=== PATIENT | male | born 1930 | race Caucasian/White ===

== ENCOUNTER 2016-10-08 23:38 | Emergency (ER) | payer MEDICARE, OTHER ==
[~2016-10-08] VITALS: Ht 157.5 cm; Wt 82.0 kg
[~2016-10-08 23:38] MED LIST: ALBU0.63 NEB; ALBU6.7H INH; ALPR0.25 PO; ASPI81TA81; ATOR40TA16 PO; BUME2TAB PO; CEFU1TAB20 PO; HYDR-3583 PO; MAGNSOL2 PO; MIRA33504 PO; NITR0.4S SL; POTA-163 PO; PRED1 PO; RANI150C PO; SYMB80AE INH
[2016-10-08 23:43] VITALS: BP 142/59; PULSE 68; RESP 16; TEMP 97.7; O2SAT 97
[2016-10-08] MEDS ORDERED: TEMA15CA PO (23:54)
[2016-10-08] MEDS ORDERED: ALBU6.7H INH (23:54)
[2016-10-08] MEDS ORDERED: MUCI30TA2 PO (23:54)
[2016-10-08] MEDS ORDERED: BUME2TAB PO (23:54)
[2016-10-08] MEDS ORDERED: ATEN25TA PO (23:54)
--- NOTE | 2016-10-09 00:14 | PD ---
HPI Chief Complaint: Fall Time Seen by Provider: 00:09 Travel History International Travel<30 days: No Contact w/Intl Traveler<30days: No Traveled to known affect area: No History of Present Illness HPI The patient is an 85-year-old male that fell asleep on a motorized wheelchair and fell out of it. He apparently hit the lever any sleep and it dumped him out of the chair onto a table. He hit the left side of his head, has bruised lips, abrasions of both knees and complains of low back pain and bilateral hip pain. The patient always has hip and low back pain and this exacerbated this. There is no loss of consciousness. The patient is on aspirin and no other blood thinners. 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) Endocrine: No Gastrointestinal Disorders: Yes GERD: Yes Genitourinary: Yes Headaches: No Hepatitis: No Hiatal Hernia: Yes (AND UMBILICAL) Hypertension: Yes Immune Disorder: No Implanted Vascular Access Dvce: Yes Kidney Stones: Yes (X2, REMOVED) Musculoskeletal: Yes Neurologic: Yes (SPINAL STENOSIS) Psychiatric: No Reproductive: No Respiratory: Yes Immunizations Current: Yes Migraines: No Myocardial Infarction: Yes (02/2010) Radiation Therapy: Yes (SEED IMPLANTS PROSTATE) Renal Failure: No Seizures: No Sleep Apnea: No Thyroid Disease: No Ulcer: No Tetanus Vaccination: < 5 Years Influenza Vaccination: Yes Past Surgical History Appendectomy: No Body Medical Devices: CORONARY STENTS X5 Cholecystectomy: No Coronary Stent: Yes (3 OVER 12 YEARS; 2 MORE PLACED 02/2010 FOR A TOTAL OF 5 STENTS) Eye Surgery: Yes (CATARACTS) Genitourinary Surgery: Yes (TESTICULAR TORSION 1950, KIDNEY STONE REMOVAL) Gynecologic Surgery: No Prostatectomy: Yes (CA SEEDING ) Tonsillectomy: Yes Other Surgery: Yes Social History Alcohol Use: Yes (BEER, RARE) Tobacco Use: No (CIGARETTES QUIT IN 1984- SMOKED FOR APPROX 45+YRS) Substance Use: No Allergies-Medications (Allergen,Severity, Reaction): Coded Allergies: Cipro (Verified Allergy, Severe, HIVES, 10/08/16) Levaquin (Verified Allergy, Severe, ITCHING, 10/08/16) Morphine (Verified Allergy, Severe, PT DENIES, 10/08/16) PT STATES HE IS NOT ALLERGIC Sulfa (Verified Allergy, Severe, Rash, 10/08/16) Flu Vaccine (Unverified Allergy, Intermediate, Hives, 10/08/16) Reported Meds & Prescriptions Reported Meds & Active Scripts Active Reported Proventil Hfa 6.7 GM Inh (Albuterol Sulfate) 90 Mcg/Act Aer 1 Puff INH Q4H PRN Mucinex DM (Dextromethorphan-Guaifenesin) 30-600 Mg Tab 1 Tab PO BID PRN Temazepam 15 Mg Cap 15 Mg PO HS PRN Bumetanide 2 Mg Tab 2 Mg PO DAILY Atenolol 25 Mg Tab 12.5 Mg PO DAILY Potassium Chloride ER (Potassium Chloride) 20 Meq Tab 20 Meq PO DAILY Proventil Hfa 6.7 GM Inh (Albuterol Sulfate) 90 Mcg/Act Aer 2 Puff INH Q4-6H PRN Prednisone 1 Mg Tab 2 Mg PO DAILY Albuterol Neb (Albuterol Sulfate) 0.63 Mg/3 Ml Neb 0.63 Mg NEB Q4HR NEB PRN Nitrostat SL (Nitroglycerin) 0.4 Mg Subl 0.4 Mg SL DIRECTED PRN 1 tablet under the tongue as needed for chest pain. Repeat every 5 minutes for a total of 3 DOSES or call 911 if NO relief. Alprazolam 0.25 Mg Tab 0.25 Mg PO Q4H PRN Hydrocodone-Acetaminophen 10-325 mg Tab 1 Tab PO Q6H PRN Symbicort Inh (Budesonide/Formoterol Fumarate) 80-4.5 Mcg/Act Aero 2 Puff INH Q12HR Ranitidine (Ranitidine HCl) 150 Mg Cap 150 Mg PO DAILY Atorvastatin (Atorvastatin Calcium) 40 Mg Tab 40 Mg PO HS Aspir-81 (Aspirin) 81 Mg Tabdr Review of Systems Except as stated in HPI: all other systems reviewed are Neg Physical Exam Narrative GENERAL: The patient is alert, oriented 3 and slight apparent distress with his multiple abrasions and contusions. His vital signs are normal. SKIN: Focused skin assessment warm/dry. There are bilateral knee abrasions, abrasion/contusion on the left face and abrasion on the left arm. HEAD: Neither raccoon eyes or ashley sign is present. Normocephalic. EYES: Pupils equal and round. No scleral icterus. No injection or drainage. ENT: No nasal bleeding or discharge. Mucous membranes pink and moist. There is no hemotympanum present. NECK: Trachea midline. No JVD. Minimal tenderness is present in the mid cervical spine, the patient has arthritis and often has pain in this area. CARDIOVASCULAR: Regular rate and rhythm. No murmur appreciated. RESPIRATORY: No accessory muscle use. Clear to auscultation. Breath sounds equal bilaterally. GASTROINTESTINAL: Abdomen soft, non-tender, nondistended. Hepatic and splenic margins not palpable. MUSCULOSKELETAL: No obvious deformities. No clubbing. No cyanosis. No edema. The patient has tenderness on the lumbar sacral spine without deformity. He also has bilateral hip tenderness without deformity. NEUROLOGICAL: Awake and alert. No obvious cranial nerve deficits. Motor grossly within normal limits. Normal speech. PSYCHIATRIC: Appropriate mood and affect; insight and judgment normal. Data Data Last Documented VS Vital Signs Date Time Temp Pulse Resp B/P Pulse Ox O2 Delivery O2 Flow Rate FiO2 10/09/16 01:30 18 10/09/16 01:05 69 141/60 97 Nasal Cannula 2 10/08/16 23:43 97.7 Orders Knee, Complete (4vws) (10/09/16 00:15) Knee, Complete (4vws) (10/09/16 00:15) Spine, Lumbar - Ltd (Ap & Lat) (10/09/16 00:15) Pelvis, Ap Only (Routine) (10/09/16 00:15) Ct Brain W/O Iv Contrast(Rout) (10/09/16 00:15) Ct Cerv Spine W/O Contrast (10/09/16 00:15) Wound Care (10/09/16 00:18) Tetanus/Diphtheria Tox Adult (Tetanus/Di (10/09/16 00:30) Ketorolac Inj (Toradol Inj) (10/09/16 00:30) MDM Medical Decision Making Medical Screen Exam Complete: Yes Emergency Medical Condition: Yes Medical Record Reviewed: Yes Interpretation(s) The AP pelvis is unremarkable. Incidentally noted is prosthetic seed placement. The lumbar spine shows only marked degenerative change at multiple levels but no fracture. The left knee is unremarkable. The right knee is unremarkable. The CT brain shows diffuse atrophy and an air-fluid level in the right maxillary sinus is unchanged since [address] of the cervical spine shows chronic degenerative change without evidence of fracture. Essentially no change since January 2016. Differential Diagnosis Multiple contusions/abrasions, intracranial bleed, skull fracture, hip fracture , pelvic fracture Narrative Course The patient has no acute findings on all of the imaging. He wants something for the pain but I am concerned that anything too strong will probably make him fall again. Plan: He will be given tramadol 50 mg every 6 hours. Diagnosis Primary Impression: Multiple contusions Med/Other Pt SpecificInfo: Prescription(s) given Scripts Tramadol 50 Mg Tab50 Mg PO Q6H PRN (PAIN) #30 TAB Ref 0 Prov:Sander Day MD 10/09/16 Disposition: 01 DISCHARGE HOME Condition: Stable Sander Day MD October 09, 2016 00:14
[2016-10-09] MEDS ORDERED: TETANUS/DIPHTHERIA TOXOID ADULT 0.5 ML VIAL IM ONE (00:30)
[2016-10-09] MEDS ORDERED: KETOROLAC TROMETHAMINE 60 MG/2 ML (IM) VIAL IVP ONE (00:30)
--- NOTE | 2016-10-09 01:00 | RADHPO ---
EXAM DATE/TIME: 10/09/2016 00:46 [facility] COMPARISON: No previous studies available for comparison. INDICATIONS : Trauma, fall. MEDICAL HISTORY : Hypertension. Carcinoma, prostatic. SURGICAL HISTORY : Prostate seeds. ENCOUNTER: Initial ACUITY: 1 day PAIN SCORE: 6/10 LOCATION: pelvis FINDINGS: A single frontal view of the pelvis demonstrates no evidence of fracture. The bony pelvic ring is in tact. Bony mineralization is normal. The soft tissues are intact. CONCLUSION: Unremarkable examination of the pelvis. Prostatic seed placement. Ervin Bland MD on October 09, 2016 at 0:58 Board Certified Radiologist. This report was verified electronically.
--- NOTE | 2016-10-09 01:01 | RADHPO ---
EXAM DATE/TIME: 10/09/2016 00:48 [facility] COMPARISON: No previous studies available for comparison. INDICATIONS : Trauma, fall. MEDICAL HISTORY : Hypertension. Carcinoma, prostatic. Spinal stenosis SURGICAL HISTORY : None. ENCOUNTER: Initial ACUITY: 1 day PAIN SCORE: 7/10 LOCATION: Paraspinal FINDINGS: Two view examination was performed. There are five non-rib bearing vertebral bodies. The vertebral bodies are in normal alignment without evidence of subluxation or scoliosis. There is marked degenera tive disease at multiple levels including marked discogenic sclerosis and narrowing. The pedicles ar e intact. Bony mineralization is normal. No fracture is identified. CONCLUSION: There is marked degenerative disease at multiple levels including marked discogenic sclerosis and pablo rowing. No fracture was seen Ervin Bland MD on October 09, 2016 at 0:59 Board Certified Radiologist. This report was verified electronically.
[2016-10-09 01:05] VITALS: BP 141/60; PULSE 69; RESP 18; O2SAT 97
--- NOTE | 2016-10-09 01:05 | RADHPO ---
EXAM DATE/TIME: 10/09/2016 00:53 [facility] COMPARISON: No previous studies available for comparison. INDICATIONS : Trauma, fall. MEDICAL HISTORY : Hypertension. Carcinoma, prostatic. SURGICAL HISTORY : None. ENCOUNTER: Initial ACUITY: 1 day PAIN SCORE: 6/10 LOCATION: Left knee FINDINGS: Four view examination of the left knee demonstrates no evidence of fracture or dislocation. Bony min eralization is normal. The articular surfaces are intact. The suprapatellar soft tissues have a nor mal configuration. CONCLUSION: Unremarkable examination of the left knee. Ervin Bland MD on October 09, 2016 at 1:03 Board Certified Radiologist. This report was verified electronically.
--- NOTE | 2016-10-09 01:06 | RADHPO ---
EXAM DATE/TIME: 10/09/2016 00:57 [facility] COMPARISON: No previous studies available for comparison. INDICATIONS : Trauma, fall. MEDICAL HISTORY : Hypertension. Carcinoma, prostatic. SURGICAL HISTORY : None. ENCOUNTER: Initial ACUITY: 1 day PAIN SCORE: 5/10 LOCATION: Right knee FINDINGS: Four view examination of the right knee demonstrates no evidence of fracture or dislocation. Bony mi neralization is normal. The articular surfaces are intact. The suprapatellar soft tissues have a no rmal configuration. CONCLUSION: Unremarkable examination of the right knee. Ervin Bland MD on October 09, 2016 at 1:04 Board Certified Radiologist. This report was verified electronically.
--- NOTE | 2016-10-09 01:17 | RADHPO ---
EXAM DATE/TIME: 10/09/2016 01:00 [facility] COMPARISON: No previous studies available for comparison. INDICATIONS : Trauma, fall. RADIATION DOSE: 67.91 CTDIvol (mGy) MEDICAL HISTORY : Cerebrovascular disease. Hypertension. SURGICAL HISTORY : None. ENCOUNTER: Initial ACUITY: 1 day PAIN SCALE: 5/10 LOCATION: cranial TECHNIQUE: Multiple contiguous axial images were obtained of the head. Using automated exposure control and adj ustment of the mA and/or kV according to patient size, radiation dose was kept as low as reasonably a chievable to obtain optimal diagnostic quality images. FINDINGS: There is marked central and cortical atrophy with dilatation of ventricular and sulcal spaces. There is no parenchymal hemorrhage, acute infarction or mass lesion identified. There are no extra-axial fluid collections appreciated. The posterior fossa is unremarkable with midline fourth ventricle. T he portion of the orbits visualized are unremarkable. Air fluid level right maxillary sinus are very similar to January 2016 CONCLUSION: Diffuse atrophy present in the intracranial portion of the exam. An air-fluid level right maxillary s inus unchanged since January 2016. Ervin Bland MD on October 09, 2016 at 1:15 Board Certified Radiologist. This report was verified electronically.
--- NOTE | 2016-10-09 01:26 | RADHPO ---
EXAM DATE/TIME: 10/09/2016 01:00 [facility] COMPARISON: CT CERVICAL SPINE W/O CONTRAST, January 20, 2016, 7:59. INDICATIONS : Trauma, fall. RADIATION DOSE: 26.45 CTDIvol (mGy) MEDICAL HISTORY : Hypertension. SURGICAL HISTORY : None. ENCOUNTER: Initial ACUITY: 1 day PAIN SCALE: 5/10 LOCATION: neck TECHNIQUE: Volumetric scanning of the cervical spine was performed. Multiplanar reconstructions in the sagittal, coronal and oblique axial planes were performed. Using automated exposure control and adjustment o f the mA and/or kV according to patient size, radiation dose was kept as low as reasonably achievable to obtain optimal diagnostic quality images. FINDINGS: VERTEBRAE: Normal vertebral body height. Chronic degenerative disc space narrowing at nearly every level similar to 2016. No endplate fractures identified. Moderate degenerative facet disease at multiple levels. S ome sclerosis and hypertrophy of the transverse ligament with a mild foramen magnum stenosis. ALIGNMENT: No evidence of subluxation. C2-C3: The bony spinal canal is normal in size. No evidence of disc bulge or herniation. The neural forami na are bilaterally patent. C3-C4: The bony spinal canal is normal in size. No evidence of disc bulge or herniation. The neural forami na are bilaterally patent. C4-C5: The bony spinal canal is normal in size. No evidence of disc bulge or herniation. The neural forami na are bilaterally patent. C5-C6: The bony spinal canal is normal in size. No evidence of disc bulge or herniation. The neural forami na are bilaterally patent. C6-C7: The bony spinal canal is normal in size. No evidence of disc bulge or herniation. The neural forami na are bilaterally patent. C7-T1: The bony spinal canal is normal in size. No evidence of disc bulge or herniation. The neural forami na are bilaterally patent. CONCLUSION: Chronic degenerative disease at multiple levels without evidence of endplate fracture. Accentuated lo rdosis of the cervical spine. Very similar to January 2016. Ervin Bland MD on October 09, 2016 at 1:23 Board Certified Radiologist. This report was verified electronically.
[2016-10-09 02:02] VITALS: BP 145/68; PULSE 71; RESP 18; O2SAT 96
[2016-10-09] MEDS ORDERED: TRAM50TA PO (02:05)
[2016-10-09] MEDS ORDERED: traMADol HCL 50 MG TAB PO ONE (02:15)
== END 2016-10-09 02:32 | disposition home or self-care (01) ==
LOC: PHED 23:38
DX: S00.83XA Contusion of other part of head, initial encounter (principal); S20.229A Contusion of unspecified back wall of thorax, initial encounter; S70.02XA Contusion of left hip, initial encounter; S70.01XA Contusion of right hip, initial encounter; I50.9 Heart failure, unspecified; J44.9 Chronic obstructive pulmonary disease, unspecified; I10 Essential (primary) hypertension; V00.811A Fall from moving wheelchair (powered), initial encounter; Z23 Encounter for immunization
CPT/HCPCS: 70450; 72100; 72125; 72170; 73564; 90471; 90714; 96374; 99284; J1885

== ENCOUNTER 2016-12-18 21:31 | Observation (INO) | payer MEDICARE, OTHER ==
[~2016-12-18] VITALS: Ht 157.5 cm; Wt 83.2 kg
[~2016-12-18 21:31] MED LIST changes: +ATEN25TA PO; -CEFU1TAB20 PO; -MAGNSOL2 PO; -MIRA33504 PO; +MUCI30TA2 PO; +TEMA15CA PO; +TRAM50TA PO
[2016-12-18 21:42] VITALS: BP 137/80; PULSE 69; RESP 26; TEMP 98.1; O2SAT 96
[2016-12-18] MEDS ORDERED: methylPREDNISolone SOD SUCC 125 MG/2 ML VIAL IVP ONE ×2 (22:15→23:15)
[2016-12-18] MEDS ORDERED: aMILoride HCL 5 MG TAB PO ONE (22:15)
[2016-12-18] MEDS ORDERED: RESP: ALBUTEROL 2.5 MG/3 ML NEB (SCH) INH ONE (22:15)
[2016-12-18] MEDS ORDERED: SODIUM CHLORIDE 0.9% FLUSH 10 ML FLUSH IVF PRN (22:15)
--- NOTE | 2016-12-18 22:34 | RADRPT ---
EXAM DATE/TIME: 12/18/2016 22:13 [facility] COMPARISON: CHEST SINGLE AP, April 21, 2016, 14:07. INDICATIONS : Short of breath, wheezing MEDICAL HISTORY : Carcinoma, prostate. Chronic obstructive pulmonary disease. Gastroesophageal reflux SURGICAL HISTORY : Cardic stents ENCOUNTER: Initial ACUITY: 3 days PAIN SCORE: 0/10 LOCATION: chest FINDINGS: Cardiomegaly and fullness of the right hilar region and large hiatus hernia in the retrocardiac regio n all have similar appearance to prior examination in April 2016. No focal areas of consolidation . Both hemidiaphragms well delineated. CONCLUSION: No focal infiltrates seen. Stable cardiomegaly and hiatus hernia.. Chris Salas MD on December 18, 2016 at 22:31 Board Certified Radiologist. This report was verified electronically.
[2016-12-18 23:04] LABS: BASOPHIL % 0.3 % (0.0-2.0); EOSINOPHIL # 0.5 TH/MM3 (0-0.4); HEMO FLAGS DIFF FINAL; LYMPH % 13.7 % (9.0-44.0); MEAN CELL VOLUME 96.6 FL (80.0-100.0); MEAN CORPUSCULAR HEMOGLOBIN 31.1 PG (27.0-34.0); MEAN CORPUSCULAR HGB CONC 32.2 % (32.0-36.0); MONO % 12.5 % (0.0-8.0); NEUT % 66.5 % (16.0-70.0); PLATELET COUNT 245 TH/MM3 (150-450); RED BLOOD COUNT 4.66 MIL/MM3 (4.50-5.90); RED CELL DISTRIBUTION WIDTH 14.8 % (11.6-17.2); WHITE BLOOD COUNT 7.5 TH/MM3 (4.0-11.0)
--- NOTE | 2016-12-18 23:15 | PD ---
HPI Chief Complaint: Edema Time Seen by Provider: 22:15 Travel History International Travel<30 days: No Contact w/Intl Traveler<30days: No Traveled to known affect area: No History of Present Illness HPI 86-year-old male arrives complaining of swelling in the bilateral lower extremities progressing beyond the knees. He complains of shortness of breath at rest as well as with exertion. Orthopnea is reported. He reports a history of CHF and COPD. Recently he was started on amiloride which was previously Bumex which was previously furosemide as he reportedly has a sulfa intolerance. He reports compliance with the dietary guidelines for CHF. No fever. He describes a generalized chest heaviness that accompanies the dyspnea. 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) Endocrine: No Gastrointestinal Disorders: Yes GERD: Yes Genitourinary: Yes Headaches: No Hepatitis: No Hiatal Hernia: Yes (AND UMBILICAL) Hypertension: Yes Immune Disorder: No Implanted Vascular Access Dvce: Yes Kidney Stones: Yes (X2, REMOVED) Musculoskeletal: Yes Neurologic: Yes (SPINAL STENOSIS) Psychiatric: No Reproductive: No Respiratory: Yes Immunizations Current: Yes Migraines: No Myocardial Infarction: Yes (02/2010) Radiation Therapy: Yes (SEED IMPLANTS PROSTATE) Renal Failure: No Seizures: No Sleep Apnea: No Thyroid Disease: No Ulcer: No Past Surgical History Appendectomy: No Body Medical Devices: CORONARY STENTS X5 Cholecystectomy: No Coronary Stent: Yes (3 OVER 12 YEARS; 2 MORE PLACED 02/2010 FOR A TOTAL OF 5 STENTS) Eye Surgery: Yes (CATARACTS) Genitourinary Surgery: Yes (TESTICULAR TORSION 1950, KIDNEY STONE REMOVAL) Gynecologic Surgery: No Prostatectomy: Yes (CA SEEDING ) Tonsillectomy: Yes Other Surgery: Yes Social History Alcohol Use: Yes (BEER, RARE) Tobacco Use: No (CIGARETTES QUIT IN 1984- SMOKED FOR APPROX 45+YRS) Substance Use: No Allergies-Medications (Allergen,Severity, Reaction): Coded Allergies: Cipro (Verified Allergy, Severe, HIVES, 12/18/16) Levaquin (Verified Allergy, Severe, ITCHING, 12/18/16) Morphine (Verified Allergy, Severe, PT DENIES, 12/18/16) PT STATES HE IS NOT ALLERGIC Sulfa (Verified Allergy, Severe, Rash, 12/18/16) Flu Vaccine (Unverified Allergy, Intermediate, Hives, 12/18/16) Reported Meds & Prescriptions Reported Meds & Active Scripts Active Reported Proventil Hfa 6.7 GM Inh (Albuterol Sulfate) 90 Mcg/Act Aer 1 Puff INH Q4H PRN Mucinex DM (Dextromethorphan-Guaifenesin) 30-600 Mg Tab 1 Tab PO BID PRN Temazepam 15 Mg Cap 15 Mg PO HS PRN Bumetanide 2 Mg Tab 2 Mg PO DAILY Atenolol 25 Mg Tab 12.5 Mg PO DAILY Potassium Chloride ER (Potassium Chloride) 20 Meq Tab 20 Meq PO DAILY Proventil Hfa 6.7 GM Inh (Albuterol Sulfate) 90 Mcg/Act Aer 2 Puff INH Q4-6H PRN Prednisone 1 Mg Tab 2 Mg PO DAILY Albuterol Neb (Albuterol Sulfate) 0.63 Mg/3 Ml Neb 0.63 Mg NEB Q4HR NEB PRN Nitrostat SL (Nitroglycerin) 0.4 Mg Subl 0.4 Mg SL DIRECTED PRN 1 tablet under the tongue as needed for chest pain. Repeat every 5 minutes for a total of 3 DOSES or call 911 if NO relief. Alprazolam 0.25 Mg Tab 0.25 Mg PO Q4H PRN Hydrocodone-Acetaminophen 10-325 mg Tab 1 Tab PO Q6H PRN Symbicort Inh (Budesonide/Formoterol Fumarate) 80-4.5 Mcg/Act Aero 2 Puff INH Q12HR Ranitidine (Ranitidine HCl) 150 Mg Cap 150 Mg PO DAILY Atorvastatin (Atorvastatin Calcium) 40 Mg Tab 40 Mg PO HS Aspir-81 (Aspirin) 81 Mg Tabdr Review of Systems Except as stated in HPI: all other systems reviewed are Neg Physical Exam Narrative GENERAL: 86-year-old male pleasant and speaking sentences SKIN: Focused skin assessment warm/dry. HEAD: Atraumatic. Normocephalic. EYES: Pupils equal and round. No scleral icterus. No injection or drainage. ENT: No nasal bleeding or discharge. Mucous membranes pink and moist. NECK: Trachea midline. No JVD. CARDIOVASCULAR: Regular rate and rhythm. No murmur appreciated. RESPIRATORY: No accessory muscle use. Clear to auscultation. Breath sounds equal bilaterally. GASTROINTESTINAL: Abdomen soft, non-tender, nondistended. Hepatic and splenic margins not palpable. MUSCULOSKELETAL: No obvious deformities. No clubbing. No cyanosis. 2+ pitting edema to the knees bilaterally. Various dressings about the lower extremities. There is a 1 cm x 2 cm ovular shaped blister overlying the left tibia distribution. NEUROLOGICAL: Awake and alert. No obvious cranial nerve deficits. Motor grossly within normal limits. Normal speech. PSYCHIATRIC: Appropriate mood and affect; insight and judgment normal. Data Data Last Documented VS Vital Signs Date Time Temp Pulse Resp B/P Pulse Ox O2 Delivery O2 Flow Rate FiO2 12/19/16 00:02 97 30 12/18/16 22:01 Nasal Cannula 2 12/18/16 21:42 98.1 69 26 137/80 Orders Complete Blood Count With Diff (12/18/16 22:15) Comprehensive Metabolic Panel (12/18/16 22:15) B-Type Natriuretic Peptide (12/18/16 22:15) Troponin I (12/18/16 22:15) Iv Access Insert/Monitor (12/18/16 22:15) Electrocardiogram (12/18/16 22:15) Ecg Monitoring (12/18/16 22:15) Oximetry (12/18/16 22:15) Oxygen Administration (12/18/16 22:15) Chest, Single Ap (12/18/16 22:15) Sodium Chloride 0.9% Flush (Ns Flush) (12/18/16 22:15) Methylprednisolone So Succ Inj (Solumedr (12/18/16 22:15) Albuterol Neb (Albuterol Neb) (12/18/16 22:15) Amiloride (Midamor) (12/18/16 22:15) Methylprednisolone So Succ Inj (Solumedr (12/18/16 23:15) Albuterol-Ipratropium Neb (Duoneb Neb) (12/18/16 23:15) Resp Bipap / Cpap Non Invas Vt (12/18/16 23:15) Arterial Blood Gas (Abg) (12/18/16 ) Admit Order (Ed Use Only) (12/19/16 00:53) Place In Observation (12/19/16 ) Vital Signs (Adult) Q4H (12/19/16 00:53) Activity Oob With Assistance (12/19/16 00:53) Feed Handler / Telemetry .CONTINUOUS (12/19/16 00:53) Diet Heart Healthy (12/19/16 Breakfast) Sodium Chloride 0.9% Flush (Ns Flush) (12/19/16 09:00) Acetaminophen (Tylenol) (12/19/16 01:00) Ondansetron Inj (Zofran Inj) (12/19/16 01:00) Basic Metabolic Panel (Bmp) (12/20/16 06:00) Troponin I (12/19/16 00:53) Troponin I (12/19/16 06:53) Resp Oxygen Sancho C Titrat 1-4 L (12/19/16 ) Naloxone Inj (Narcan Inj) (12/19/16 01:00) Magnesium Hydroxide Liq (Milk Of Magnesi (12/19/16 01:00) Sennosides (Senokot) (12/19/16 01:00) Heparin Inj (Heparin Inj) (12/19/16 09:00) Amiloride (Midamor) (12/19/16 09:00) Labs Laboratory Tests Test 12/18/16 22:40 White Blood Count 7.5 TH/MM3 Red Blood Count 4.66 MIL/MM3 Hemoglobin 14.5 GM/DL Hematocrit 45.0 % Mean Corpuscular Volume 96.6 FL Mean Corpuscular Hemoglobin 31.1 PG Mean Corpuscular Hemoglobin 32.2 % Concent Red Cell Distribution Width 14.8 % Platelet Count 245 TH/MM3 Mean Platelet Volume 7.6 FL Neutrophils (%) (Auto) 66.5 % Lymphocytes (%) (Auto) 13.7 % Monocytes (%) (Auto) 12.5 % Eosinophils (%) (Auto) 7.0 % Basophils (%) (Auto) 0.3 % Neutrophils # (Auto) 5.0 TH/MM3 Lymphocytes # (Auto) 1.0 TH/MM3 Monocytes # (Auto) 0.9 TH/MM3 Eosinophils # (Auto) 0.5 TH/MM3 Basophils # (Auto) 0.0 TH/MM3 CBC Comment DIFF FINAL Differential Comment Sodium Level 141 MEQ/L Potassium Level 4.7 MEQ/L Chloride Level 107 MEQ/L Carbon Dioxide Level 28.0 MEQ/L Anion Gap 6 MEQ/L Blood Urea Nitrogen 21 MG/DL Creatinine 0.84 MG/DL Estimat Glomerular Filtration 87 ML/MIN Rate Random Glucose 92 MG/DL Calcium Level 8.8 MG/DL Total Bilirubin 0.8 MG/DL Aspartate Amino Transf 17 U/L (AST/SGOT) Alanine Aminotransferase 25 U/L (ALT/SGPT) Alkaline Phosphatase 98 U/L Troponin I LESS THAN 0.02 NG/ML B-Type Natriuretic Peptide 83 PG/ML Total Protein 6.4 GM/DL Albumin 3.4 GM/DL MDM Medical Decision Making Medical Screen Exam Complete: Yes Emergency Medical Condition: Yes Differential Diagnosis CHF, COPD, under diuresis, cellulits Narrative Course CBC & BMP Diagram 12/18/16 22:40 Troponin less than 0.02 BNP 83 Last 24 hours Impressions Chest X-Ray 12/18/16 [id number] Signed Impressions: Service Date/Time: December 22:13 - CONCLUSION: No focal infiltrates seen. Stable cardiomegaly and hiatus hernia.. Chris Salas MD Case d/w Yosvany Shelton. Diagnosis Primary Impression: Edema Qualified Code: R60.9 - Edema, unspecified type Admitting Information Admitting Physician Requests: Observation Luis Escobar MD Dec 18, 2016 23:15
[2016-12-18] MEDS: RESP: ALBUTEROL 2.5 MG/IPRATROPIUM 0.5 MG NEB (SCH) INH (23:34)
[2016-12-18 23:37] LABS: ANION GAP 6 MEQ/L (5-15); AST (GOT) 17 U/L (15-37); BLOOD UREA NITROGEN 21 MG/DL (7-18); CHLORIDE 107 MEQ/L (98-107); GLOMERULAR FILTRATION RATE 87 ML/MIN (>89); POTASSIUM 4.7 MEQ/L (3.5-5.1); SODIUM (NA) 141 MEQ/L (136-145)
[2016-12-18 23:38] LABS: ALT (GPT) 25 U/L (12-78)
[2016-12-18 23:42] LABS: ALKALINE PHOSPHATASE 98 U/L (45-117); TOTAL BILIRUBIN ADULT 0.8 MG/DL (0.2-1.0)
[2016-12-19] VITALS (9 sets, daily range): BP systolic 111–151; BP diastolic 56–76; PULSE 86–101; RESP 16–18; TEMP 98–98.8; O2SAT 96–98
[2016-12-19] MEDS ORDERED: MAGNESIUM HYDROXIDE SUSP 30 ML CUP PO PRN (01:00)
[2016-12-19] MEDS ORDERED: ONDANSETRON HCL 4 MG/2 ML VIAL IVP PRN (01:00)
[2016-12-19] MEDS ORDERED: SENNOSIDES 8.6 MG TAB PO PRN (01:00)
[2016-12-19] MEDS ORDERED: NALOXONE HCL 0.4 MG/ML AMP IV PRN (01:00)
[2016-12-19] MEDS ORDERED: RESP: ALBUTEROL 2.5 MG/3 ML NEB (PRN) INH (01:00)
[2016-12-19] MEDS ORDERED: ACETAMINOPHEN 325 MG TAB PO PRN (01:00)
[2016-12-19] MEDS: RESP: ALBUTEROL 2.5 MG/IPRATROPIUM 0.5 MG NEB (SCH) INH ×4 (03:34→20:54)
[2016-12-19] MEDS ORDERED: methylPREDNISolone SOD SUCC 125 MG/2 ML VIAL IVP SCH (06:00)
[2016-12-19] MEDS: SODIUM CHLORIDE 0.9% FLUSH 10 ML FLUSH IV FLUSH SCH ×2 (07:38→20:58)
[2016-12-19] MEDS: HEPARIN SODIUM - SQ 10,000 UNITS/ML VIAL SQ SCH ×2 (07:38→20:59)
[2016-12-19] MEDS: aMILoride HCL 5 MG TAB PO SCH (07:42)
--- NOTE | 2016-12-19 08:00 | HHI.HP ---
[facility] Sancho Wright MD Admission Diagnosis LE Edema; COPD Diagnoses: Chief Complaint: sob, leg swelling Travel History International Travel<30 Days: No Contact w/Intl Traveler <30 Da: No Traveled to Known Affected Are: No History of Present Illness This is a pleasant 86-year-old male with significant past medical history of CHF , pedal edema, COPD uses oxygen at night, hypertension, hyperlipidemia, coronary artery disease and previous stents, atrial fibrillation, prostate cancer status post seeding. Patient presents to the emergency room with complaint of increasing shortness of breath more than usual associated with chills, no fevers, cough, wheezing, sputum that is yellow white. He had chest heaviness yesterday but not today. Has been using nebulizers and uses oxygen at night. Patient has also noted increased weight gain and leg swelling all the way up to his waist. Positive for orthopnea. He does have some fluid- filled blisters on his left mendez and knee. He does use GOLDY hose at times and has been compliant with taking diuretics. Indicates that he watches his salt intake at home. Patient presented to the emergency room, laboratory workup was completed. It was essentially unremarkable, troponin negative. B natruretic peptide 83. Chest x-ray did not reveal any acute findings, stable cardiomegaly and hiatal hernia. Patient was given IV steroids, DuoNeb's, amiloride. Patient indicates that he is feeling slightly improved. States that he recently increased his oral steroids himself. 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 He does have a history of atrial fibrillation and only takes aspirin although he has prior history of stroke. Indicates that he doesn't want to take any anticoagulations because of stomach problems. States that he has a large hiatal hernia that sometimes bothers him and presses on his diaphragm and he has more difficulty breathing and laying flat. Patient is admitted for further evaluation and treatment. Review of Systems Constitutional: COMPLAINS OF: Weight gain, DENIES: Diaphoretic episodes, Fatigue, Fever, Weight loss, Chills, Dizziness, Change in appetite, Night Sweats Endocrine: DENIES: Heat/cold intolerance, Polydipsia, Polyuria, Polyphagia Eyes: DENIES: Blurred vision, Diplopia, Eye inflammation, Eye pain, Vision loss , Photosensitivity, Double Vision Ears, nose, mouth, throat: DENIES: Tinnitus, Hearing loss, Vertigo, Nasal discharge, Oral lesions, Throat pain, Hoarseness, Ear Pain, Running Nose, Epistaxis, Sinus Pain, Toothache, Odynophagia Respiratory: COMPLAINS OF: Cough, Wheezing, Sputum production, Shortness of breath, DENIES: Apneas, Snoring, Hemoptysis Cardiovascular: COMPLAINS OF: Chest pain, Dyspnea on Exertion, Lower Extremity Edema (fluid filled blisters both legs), Orthopnea, DENIES: Palpitations, Syncope, PND, Claudication Gastrointestinal: DENIES: Abdominal pain, Black stools, Bloody stools, Constipation, Diarrhea, Nausea, Vomiting, Difficulty Swallowing, Anorexia Genitourinary: DENIES: Sexual dysfunction, Urinary frequency, Urinary incontinence, Urgency, Hematuria, Dysuria, Nocturia, Penile Discharge, Testicular Pain, Testicular Swelling Musculoskeletal: DENIES: Joint pain, Muscle aches, Stiffness, Joint Swelling, Back pain, Neck pain Integumentary: DENIES: Abnormal pigmentation, Nail changes, Pruritus, Rash Hematologic/lymphatic: DENIES: Bruising, Lymphadenopathy Immunologic/allergic: DENIES: Eczema, Urticaria Neurologic: DENIES: Abnormal gait, Headache, Localized weakness, Paresthesias, Seizures, Speech Problems, Tremor, Poor Balance Psychiatric: DENIES: Anxiety, Confusion, Mood changes, Depression, Hallucinations, Agitation, Suicidal Ideation, Homicidal Ideation, Delusions Past Family Social History Past Medical History arthritis asthma atrial fibrillation, only on ASA. Will not do OAC due to "stomach issues" prostate cancer, status post treatment with seed implant history of coronary artery disease status five stent placements hyperlipidemia congestive heart failure history of stroke SQUAXIN GERD Large hiatal hernia Umbilical hernia hypertension history of spinal stenosis heart attack in 2009 COPD uses oxygen at night Testicular torsion in 1950 Past Surgical History Tonsillectomy Kidney stone removal cath and stent insertion Testicular torsion surgery prostate seeding Reported Medications Reported Meds & Active Scripts Active Reported Proventil Hfa 6.7 GM Inh (Albuterol Sulfate) 90 Mcg/Act Aer 1 Puff INH Q4H PRN Mucinex DM (Dextromethorphan-Guaifenesin) 30-600 Mg Tab 1 Tab PO BID PRN Temazepam 15 Mg Cap 15 Mg PO HS PRN Bumetanide 2 Mg Tab 2 Mg PO DAILY Atenolol 25 Mg Tab 12.5 Mg PO DAILY Potassium Chloride ER (Potassium Chloride) 20 Meq Tab 20 Meq PO DAILY Proventil Hfa 6.7 GM Inh (Albuterol Sulfate) 90 Mcg/Act Aer 2 Puff INH Q4-6H PRN Prednisone 1 Mg Tab 2 Mg PO DAILY Albuterol Neb (Albuterol Sulfate) 0.63 Mg/3 Ml Neb 0.63 Mg NEB Q4HR NEB PRN Nitrostat SL (Nitroglycerin) 0.4 Mg Subl 0.4 Mg SL DIRECTED PRN 1 tablet under the tongue as needed for chest pain. Repeat every 5 minutes for a total of 3 DOSES or call 911 if NO relief. Alprazolam 0.25 Mg Tab 0.25 Mg PO Q4H PRN Hydrocodone-Acetaminophen 10-325 mg Tab 1 Tab PO Q6H PRN Symbicort Inh (Budesonide/Formoterol Fumarate) 80-4.5 Mcg/Act Aero 2 Puff INH Q12HR Ranitidine (Ranitidine HCl) 150 Mg Cap 150 Mg PO DAILY Atorvastatin (Atorvastatin Calcium) 40 Mg Tab 40 Mg PO HS Aspir-81 (Aspirin) 81 Mg Tabdr Allergies: Coded Allergies: Cipro (Verified Allergy, Severe, HIVES, 12/18/16) Levaquin (Verified Allergy, Severe, ITCHING, 12/18/16) Morphine (Verified Allergy, Severe, PT DENIES, 12/18/16) PT STATES HE IS NOT ALLERGIC Sulfa (Verified Allergy, Severe, Rash, 12/18/16) Flu Vaccine (Unverified Allergy, Intermediate, Hives, 12/18/16) Active Ordered Medications Inpatient Medications Acetaminophen (Tylenol) 650 mg Q4H PRN PO TEMP > 100.4; Start 12/19/16 at 01:00 Albuterol Sulfate (Albuterol Neb) 2.5 mg Q2HR NEB PRN INH SHORTNESS OF BREATH; Start 12/19/16 at 01:00 Albuterol/ Ipratropium (Duoneb Neb) 1 ampule Q6HR NEB INH Last administered on 12/19/16 07:51; Start 12/19/16 at 04:00 Amiloride HCl (Midamor) 10 mg DAILY PO Last administered on 12/19/16 07:42; Start 12/19/16 at 09:00 Heparin Sodium (Porcine) (Heparin Inj) 5,000 units Q12HR SQ Last administered on 12/19/16 07:38; Start 12/19/16 at 09:00 Magnesium Hydroxide (Milk Of Magnjayleen Liq) 30 ml Q12H PRN PO MILD - MODERATE CONSTIPATION; Start 12/19/16 at 01:00 Methylprednisolone Sodium Succinate (SoluMEDROL INJ) 60 mg Q6H IVP Last administered on 12/19/16 05:29; Start 12/19/16 at 06:00 Naloxone HCl (Narcan Inj) 0.4 mg UNSCH PRN IV SEE LABEL COMMENTS; Start at 01:00 Ondansetron HCl (Zofran Inj) 4 mg Q6H PRN IVP NAUSEA OR VOMITING; Start at 01:00 Pneumococcal Polyvalent Vaccine (Pneumovax-23 Inj) 25 mcg ONCE ONCE IM ; Start 12/20/16 at 09:00; Stop 12/20/16 at 09:01 Sennosides (Senokot) 17.2 mg Q12H PRN PO MODERATE - SEVERE CONSTIPATION; Start 12/19/16 at 01:00 Sodium Chloride (NS Flush) 2 ml BID IV FLUSH Last administered on 12/19/16 07: 38; Start 12/19/16 at 09:00 Family History Significant for coronary artery disease. Social History He drinks beer rarely and he quit cigarette smoking in 1984, smoked for 45 years. He lives at home alone. 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 Recently Physical Exam Vital Signs Vital Signs Date Time Temp Pulse Resp B/P Pulse Ox O2 Delivery O2 Flow Rate FiO2 12/19/16 07:51 96 Nasal Cannula 2.00 12/19/16 07:24 98.7 94 18 117/64 98 12/19/16 05:11 90 16 151/65 97 12/19/16 03:10 97 2 12/19/16 02:54 91 118/65 12/19/16 00:02 97 30 12/18/16 22:01 100 Nasal Cannula 2 12/18/16 21:42 98.1 69 26 137/80 96 Physical Exam GENERAL: This is a well-nourished, well-developed patient, in no apparent distress. SKIN: No rashes, ecchymoses or lesions. Cool and dry. HEAD: Atraumatic. Normocephalic. No temporal or scalp tenderness. EYES: Pupils equal round and reactive. Extraocular motions intact. No scleral icterus. No injection or drainage. ENT: Nose without bleeding, purulent drainage or septal hematoma. Throat without erythema, tonsillar hypertrophy or exudate. Uvula midline. Airway patent. NECK: Trachea midline. No JVD or lymphadenopathy. Supple, nontender, no meningeal signs. CARDIOVASCULAR: S1 and S2 on the monitor, unable to detect any murmurs, rubs or gallops. RESPIRATORY: Poor inspiratory effort. Expiratory wheeze left upper lobe. Diminished at bases. GASTROINTESTINAL: Abdomen soft, non-tender, nondistended. No hepato-splenomegaly , or palpable masses. No guarding. MUSCULOSKELETAL: Extremities without clubbing, cyanosis. No joint tenderness, effusion, or edema noted. No calf tenderness. Negative Homans sign bilaterally. 2+ pitting edema from the knees down to feet, has fluid-filled blisters to both lower extremities, 1 to the left tibia and left knee and another one to the right tibia. Difficult to palpate pedal pulses, both feet are warm to touch. NEUROLOGICAL: Awake, alert oriented 3. No focal deficits. Laboratory Laboratory Tests Test 12/18/16 12/19/16 22:40 02:50 White Blood Count 7.5 Red Blood Count 4.66 Hemoglobin 14.5 Hematocrit 45.0 Mean Corpuscular Volume 96.6 Mean Corpuscular Hemoglobin 31.1 Mean Corpuscular Hemoglobin 32.2 Concent Red Cell Distribution Width 14.8 Platelet Count 245 Mean Platelet Volume 7.6 Neutrophils (%) (Auto) 66.5 Lymphocytes (%) (Auto) 13.7 Monocytes (%) (Auto) 12.5 Eosinophils (%) (Auto) 7.0 Basophils (%) (Auto) 0.3 Neutrophils # (Auto) 5.0 Lymphocytes # (Auto) 1.0 Monocytes # (Auto) 0.9 Eosinophils # (Auto) 0.5 Basophils # (Auto) 0.0 CBC Comment DIFF FINAL Differential Comment Sodium Level 141 Potassium Level 4.7 Chloride Level 107 Carbon Dioxide Level 28.0 Anion Gap 6 Blood Urea Nitrogen 21 Creatinine 0.84 Estimat Glomerular Filtration 87 Rate Random Glucose 92 Calcium Level 8.8 Total Bilirubin 0.8 Aspartate Amino Transf 17 (AST/SGOT) Alanine Aminotransferase 25 (ALT/SGPT) Alkaline Phosphatase 98 Troponin I LESS THAN 0.02 LESS THAN 0.02 B-Type Natriuretic Peptide 83 Total Protein 6.4 Albumin 3.4 Result Diagram: 12/18/16223912/18/162239 Imaging Last Impressions Chest X-Ray 12/18/162214 Signed Impressions: Service Date/Time: December 22:13 - CONCLUSION: No focal infiltrates seen. Stable cardiomegaly and hiatus hernia.. Chris Salas MD Assessment and Plan Problem List: (1) COPD exacerbation (2) CHF exacerbation (3) Afib (4) Edema (5) Coronary artery disease Assessment and Plan Admit to Dr. Nguyễn 86-year-old elderly male with history of COPD and chronic CHF. Presented to the emergency room with increasing shortness of breath, wheezing, cough with sputum production and leg swelling. COPD exacerbation -Continue with DuoNeb's Continue with oxygen at 2 L Continue with steroids, will change to prednisone 20 mg by mouth daily Resume Symbicort Chronic CHF, chest x-ray reviewed, stable cardiomegaly. BNP 83 Pedal edema with fluid filled blisters, prior history of cellulitis. Has chronic skin discoloration Coronary artery disease and previous stents Hypertension, stable -Changed to Bumex 1 mg IV twice a day 2-D echo, has not had one done in more than a year. A. fib, currently sinus rhythm. Patient on aspirin [id number] score of 6 Continue with atenolol Continue with aspirin 81 mg by mouth daily Heparin 5000 units subcutaneous twice a day while he is hospitalized Hyperlipidemia Continue home medication Home medications reviewed, initiated as indicated Heparin for DVT prophylaxis Pepcid for GI prophylaxis Plan of care has been discussed with the patient, attending and registered nurse. Further management of the patient will be dependent on the hospital course This patient was seen by myself and Dr. Nguyễn, this H&P is written on his behalf Problem Qualifiers (1) CHF exacerbation: Qualified Code: I50.9 - Acute on chronic congestive heart failure, unspecified congestive heart failure type (2) Afib: Qualified Code: I48.2 - Chronic atrial fibrillation (3) Edema: Qualified Code: R60.9 - Edema, unspecified type (4) Coronary artery disease: Qualified Code: I25.118 - Coronary artery disease of [place] artery of [place] heart with stable angina pectoris Prabha Hill Dec 19, 2016 07:59
[2016-12-19] MEDS: ATENOLOL 25 MG TAB PO SCH (09:32)
[2016-12-19] MEDS: FAMOTIDINE 20 MG TAB PO SCH ×2 (09:32→20:58)
[2016-12-19] MEDS: BUMETANIDE INJ 1 MG/4 ML VIAL IV PUSH SCH ×2 (09:32→18:54)
[2016-12-19] MEDS: ASPIRIN EC 81 MG TABEC PO SCH (09:32)
[2016-12-19] MEDS: BUDESONIDE-FORMOTEROL 80/4.5 MCG INHALER INH SCH ×2 (10:02→20:58)
--- NOTE | 2016-12-19 10:21 | EKG ---
Date Performed: 12/18/2016 Time Performed: 22:52:04 PTAGE: 86 years EKG: Sinus rhythm POSSIBLE INFERIOR MYOCARDIAL INFARCTION BORDERLINE ECG Since PREVIOUS TRACING , no significant change noted PREVIOUS TRACIN04/21/2016 12.30 DOCTOR: Tal Olivares Interpretating Date/Time 12/19/2016 10:19:33
[2016-12-19] MEDS: ACETAMINOPHEN/HYDROcodone 325 MG/10 MG TAB PO PRN ×2 (13:41→23:08)
[2016-12-19 15:31] LABS: MAGNESIUM 2.3 MG/DL (1.5-2.5)
[2016-12-19] MEDS: ATORVASTATIN 40 MG TAB PO SCH (20:58)
[2016-12-20] VITALS (14 sets, daily range): BP systolic 104–135; BP diastolic 58–64; PULSE 63–81; RESP 16–20; TEMP 97.5–98.5; O2SAT 91–97
[2016-12-20] MEDS: RESP: ALBUTEROL 2.5 MG/IPRATROPIUM 0.5 MG NEB (SCH) INH ×4 (03:32→21:11)
[2016-12-20] MEDS ORDERED: NITROGLYCERIN 2% OINT 1 GM PACKET TOPICAL ONE (08:00)
[2016-12-20] MEDS: ASPIRIN EC 81 MG TABEC PO SCH (08:29)
[2016-12-20] MEDS: BUDESONIDE-FORMOTEROL 80/4.5 MCG INHALER INH SCH ×2 (08:29→21:00)
[2016-12-20] MEDS: ATENOLOL 25 MG TAB PO SCH (08:29)
[2016-12-20] MEDS: FAMOTIDINE 20 MG TAB PO SCH ×2 (08:29→21:48)
[2016-12-20] MEDS: predniSONE 20 MG TAB PO SCH (08:29)
[2016-12-20] MEDS: HEPARIN SODIUM - SQ 10,000 UNITS/ML VIAL SQ SCH ×2 (08:30→21:48)
[2016-12-20] MEDS: SODIUM CHLORIDE 0.9% FLUSH 10 ML FLUSH IV FLUSH SCH ×2 (08:30→21:48)
[2016-12-20] MEDS: aMILoride HCL 5 MG TAB PO SCH (08:30)
--- NOTE | 2016-12-20 08:45 | HHI.PR ---
Subjective Remarks Complaining of crushing chest pain, mid sternum with radiation to right jaw Indicates it radiated to back Was shaky Vital signs stable, sats 97% on 2 L No changes in telemetry States that he has not had pain like this before radiating to jaw Patient's son upset last night about pt getting Bumex, indicates he is allergic. Patient had 2 doses, diuresed well yesterday. No reaction. Pt. states he doesn't know what kind of reaction he has Patient states he no longer takes Bumex. Medication reconciliation will be updated Objective Objective Results - Vital Signs Date Time Temp Pulse Resp B/P Pulse Ox O2 Delivery O2 Flow Rate FiO2 12/20/16 08:08 98.2 12/20/16 07:52 68 18 135/64 97 12/20/16 04:21 67 12/20/16 03:36 97.5 74 18 120/58 91 12/20/16 01:08 98.2 71 18 104/60 93 12/20/16 00:01 79 12/19/16 20:57 21 12/19/16 19:04 98.0 92 18 111/58 96 12/19/16 15:52 98.5 88 16 138/76 98 12/19/16 11:56 98.8 86 16 117/56 96 12/19/16 10:50 101 I/O 12/19/16 12/19/16 12/19/16 12/20/16 12/20/16 12/20/16 07:00 15:00 23:00 07:00 15:00 23:00 Intake Total 240 ml Output Total 1800 ml 600 ml Balance -1800 ml -360 ml Intake Oral 240 ml Output Urine Total 1800 ml 600 ml # Bowel Movements 2 Result Diagram: 12/18/16223912/18/162239 Imaging Last Impressions Chest X-Ray 12/18/162214 Signed Impressions: Service Date/Time: December 22:13 - CONCLUSION: No focal infiltrates seen. Stable cardiomegaly and hiatus hernia.. 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 SKIN: No rashes, ecchymoses or lesions. Cool and dry. HEAD: Atraumatic. Normocephalic. No temporal or scalp tenderness. EYES: Pupils equal round and reactive. Extraocular motions intact. No scleral icterus. No injection or drainage. ENT: Nose without bleeding, purulent drainage or septal hematoma. Throat without erythema, tonsillar hypertrophy or exudate. Uvula midline. Airway patent. NECK: Trachea midline. No JVD or lymphadenopathy. Supple, nontender, no meningeal signs. CARDIOVASCULAR: S1 and S2 on the monitor, unable to detect any murmurs, rubs or gallops. RESPIRATORY: Poor inspiratory effort. Minimal exp. wheeze. Diminished at bases. GASTROINTESTINAL: Abdomen soft, non-tender, nondistended. No hepato-splenomegaly , or palpable masses. No guarding. MUSCULOSKELETAL: Extremities without clubbing, cyanosis. No joint tenderness, effusion, or edema noted. No calf tenderness. Negative Homans sign bilaterally. 2+ pitting edema from the knees down to feet, has fluid-filled blisters to both lower extremities, 1 to the left tibia and left knee and 2-3 to the right tibia. Difficult to palpate pedal pulses, both feet are warm to touch. NEUROLOGICAL: Awake, alert oriented 3. No focal deficits. Urinary Catheter: No Vascular Central Line Catheter: No A/P Diagnosis: (1) COPD exacerbation (2) CHF exacerbation (3) Afib (4) Edema (5) Coronary artery disease Assessment and Plan 86-year-old elderly male with history of COPD and chronic CHF. Presented to the emergency room with increasing shortness of breath, wheezing, cough with sputum production and leg swelling. COPD exacerbation -Continue with DuoNeb's Continue with oxygen at 2 L continue Prednisone 20 mg by mouth daily -continue Symbicort -improving. Chronic CHF, chest x-ray reviewed, stable cardiomegaly. BNP 83 Pedal edema with fluid filled blisters, prior history of cellulitis. Has chronic skin discoloration Coronary artery disease and previous stents Hypertension, stable 2-D echo pending -DC Di, pt. states he is allergic. Had 2 doses yesterday, no reaction, diuresing well -continue Amiloride for now CP today radiating to jaw, crushing -Stat Trop, EKG -Ntg 0.5" to cw q 6 -consult cardiology A. fib, currently sinus rhythm. Patient on aspirin [id number] score of 6 Continue with atenolol Continue with aspirin 81 mg by mouth daily Heparin 5000 units subcutaneous twice a day while he is hospitalized Hyperlipidemia Continue home medication Heparin for DVT prophylaxis Pepcid for GI prophylaxis Labs in am will f/u on trop and EKG, pt. not ready for dc D/W RN D/W Dr. Nguyễn D/W pt This patient was seen by myself and Dr. Nguyễn, this note is written on his behalf Problem Qualifiers (1) CHF exacerbation: Qualified Code: I50.9 - Acute on chronic congestive heart failure, unspecified congestive heart failure type (2) Afib: Qualified Code: I48.2 - Chronic atrial fibrillation (3) Edema: Qualified Code: R60.9 - Edema, unspecified type (4) Coronary artery disease: Qualified Code: I25.118 - Coronary artery disease of [place] artery of [place] heart with stable angina pectoris Prabha Hill Dec 20, 2016 08:45
[2016-12-20] MEDS ORDERED: PNEUMOCOCCAL POLYVALENT INJ 25 MCG/0.5 ML SYR IM ONE (09:00)
[2016-12-20 11:04] LABS: ANION GAP 8 MEQ/L (5-15); BICARBONATE 25.8 MEQ/L (21.0-32.0); BLOOD UREA NITROGEN 31 MG/DL (7-18); CHLORIDE 107 MEQ/L (98-107); GLOMERULAR FILTRATION RATE 68 ML/MIN (>89); POTASSIUM 4.5 MEQ/L (3.5-5.1); SODIUM (NA) 141 MEQ/L (136-145)
[2016-12-20] MEDS: NITROGLYCERIN 2% OINT 1 GM PACKET TOPICAL SCH ×2 (11:35→17:48)
[2016-12-20] MEDS ORDERED: FUROSEMIDE 40 MG/4 ML VIAL IV PUSH ONE (12:00)
--- NOTE | 2016-12-20 14:22 | ECHRPT ---
Indication: SHORTNESS OF BREATH CONCLUSIONS The left ventricular systolic function is grossly normal on limited imaging. Wall thickness is measured at the upper limits of normal. No regional wall motion abnormalities are present. There is mild aortic insufficiency. The left ventricular systolic function is grossly normal on limited imaging. Wall thickness is measured at the upper limits of normal. No regional wall motion abnormalities are present. There is estimated mild to moderate pulmonary hypertension present; RVSP 50 mmHg There is trace tricuspid valve regurgitation. BP: 117 / 64 HR: 94 Rhythm: Sinus MEASUREMENTS (Male / Female) Normal Values Technical Quality:Very technically difficult study 2D ECHO LV Diastolic Diameter PLAX 3.1 cm 4.2 - 5.9 / 3.9 - 5.3 cm LV Systolic Diameter PLAX 2.1 cm IVS Diastolic Thickness 1.0 cm 0.6 - 1.0 / 0.6 - 0.9 cm LVPW Diastolic Thickness 1.0 cm 0.6 - 1.0 / 0.6 - 0.9 cm LV Relative Wall Thickness 0.6 LVOT Diameter 2.2 cm Aortic Root Diameter 3.0 cm DOPPLER AV Peak Velocity 152.0 cm/s AV Peak Gradient 9.2 mmHg AV Mean Gradient 4.0 mmHg AV Velocity Time Integral 31.0 cm AI Peak Velocity 428.0 cm/s AI Peak Gradient 73.3 mmHg AI Pressure Half Time 488.0 ms LVOT Peak Velocity 101.0 cm/s LVOT Peak Gradient 4.1 mmHg LVOT Velocity Time Integral 20.2 cm LVOT Cardiac Index 3718.4 cm/minm AV Area Cont Eq vti 2.5 cm AV Area Cont Eq pk 2.5 cm Mitral E Point Velocity 111.0 cm/s Mitral A Point Velocity 84.4 cm/s Mitral E to A Ratio 1.3 LV E' Lateral Velocity 7.5 cm/s Mitral E to LV E' Lateral Ratio 14.8 LV E' Septal Velocity 5.0 cm/s Mitral E to LV E' Septal Ratio 22.3 TR Peak Velocity 316.0 cm/s TR Peak Gradient 39.9 mmHg PV Peak Velocity 57.1 cm/s PV Peak Gradient 1.3 mmHg FINDINGS LEFT VENTRICLE The left ventricular systolic function is grossly normal on limited imaging. Wall thickness is measured at the upper limits of normal. No regional wall motion abnormalities are present. Left ventricular diastolic function parameters are normal. MITRAL VALVE The mitral valve is not well visualized. AORTIC VALVE The aortic valve is not well visualized. There is good movement seen from the aortic valve. There is no significant aortic stenosis. There is mild aortic insufficiency. TRICUSPID VALVE The tricuspid valve is not well visualized. There is estimated moderate pulmonary hypertension present (range 50-60 mmHg). There is trace tricuspid valve regurgitation. Baljit Berry MD (Electronically Signed) Final Date:20 December 2016 14:21
--- NOTE | 2016-12-20 14:45 | MB ---
cc: SHALONDA GALDAMEZ MD DATE OF CONSULTATION: 12/20/2016 REASON FOR CONSULTATION: Chest pain and lower extremity edema. HISTORY OF PRESENT ILLNESS: The patient is a very pleasant 86-year-old gentleman who sees my partner Dr. Thompson for a long history of coronary artery disease. He also has COPD and chronic lower extremity edema. Apparently the patient's right lower leg has been more swollen over the last couple of weeks and his COPD has been more prominent and thus he presented to the emergency department. While here, he had an episode of what he describes as fairly severe sharp chest pain radiating to his back and right jaw and this has been relieved and subsequent cardiac enzymes have thus far been negative. He is now asymptomatic except for lower extremity edema. He denies any residual chest pain, shortness of breath, lightheadedness or dizziness. PAST MEDICAL HISTORY: 1. Congestive heart failure. 2. Lower extremity edema. 3. COPD on nocturnal oxygen. 4. Hypertension. 5. Hyperlipidemia. 6. Coronary artery disease with prior stents. 7. Atrial fibrillation (apparently on aspirin and not on oral anticoagulation due to stomach issues). CURRENT MEDICATIONS: 1. Prednisone 20 milligrams daily. 2. Lipitor 40 milligrams at bedtime. 3. Amiloride 10 milligrams daily. 4. Atenolol 12.5 milligrams daily. 5. Pepcid 20 milligrams twice a day. 6. Aspirin 81 milligrams daily. ALLERGIES: 1. CIPRO. 2. FLU VACCINE. 3. LEVAQUIN. 4. MORPHINE. 5. SULFA. PHYSICAL EXAMINATION: VITAL SIGNS: Afebrile, pulse 65, respiratory rate 16, blood pressure 125/50, satting 96% on two liters. GENERAL: A pleasant elderly gentleman in no distress. NECK: No jugular venous distention. LUNGS: Decreased breath sounds in all mata. CARDIOVASCULAR: Regular rate and rhythm. No murmurs appreciated. ABDOMEN: Benign. EXTREMITIES: 1 to 2+ chronic edema bilaterally with chronic edema erythematous changes. EKGS: EKG shows sinus rhythm with no acute S-T or T wave changes. IMPRESSION: 1. Chest pain. The patient's chest pain was fairly severe in nature but thus far his cardiac enzymes are normal. I will have him undergo a nuclear stress test and he will complete his cardiac enzymes as well. His BNP is low so I do not believe his lower extremity edema is likely related to congestive heart failure. I will have him undergo an ultrasound of his right lower extremity as they state that that is worse than typical. I will also give him an additional dose of Lasix. Further recommendations based on his clinical course. Thank you again for the opportunity to participate in this patient's care. MD SHARIF Mott/AJ /11:56 AM /2:17 PM
--- NOTE | 2016-12-20 16:21 | RADRPT ---
EXAM DATE/TIME: 12/20/2016 15:45 [facility] COMPARISON: No previous studies available for comparison. INDICATIONS : Bilateral leg edema. MEDICAL HISTORY : Hypercholesterolemia. Gastroesophageal reflux disease. Chronic obstructive pulmonary disease. Cerebro vascular accident. Myocardial infarction. Congestive heart failure. Coronary artery disease. Atri al fibrillation. Asthma. Hypertension. Hernia, hiatal. Hernia, umbilical. Kidney stones. Arthri tis. Carcinoma, prostate. SURGICAL HISTORY : Tonsillectomy. Prostatectomy.Cardiac catheterization. Circumcision. Left thumb bone fusion. Hernia repair. ENCOUNTER: Initial ACUITY: >1 year PAIN SCORE: 4/10 LOCATION: Bilateral legs. TECHNIQUE: Venous ultrasound of the left and right leg was performed from the inguinal ligament to the proximal calf. Real-time, color Doppler and spectral tracing, compression and augmentation techniques were us ed. FINDINGS: RIGHT LEG: There is normal compressibility of the deep venous system from the inguinal region to the proximal ca lf. No echogenic clot is seen in the lumen of the common femoral, femoral, popliteal, and posterior tibial veins. There is a normal response of the venous system to proximal and distal augmentation an d respiration. LEFT LEG: There is normal compressibility of the deep venous system from the inguinal region to the proximal ca lf. No echogenic clot is seen in the lumen of the common femoral, femoral, popliteal, and posterior tibial veins. There is a normal response of the venous system to proximal and distal augmentation an d respiration. CONCLUSION: Normal examination. Primo Jaimes MD on December 20, 2016 at 16:19 Board Certified Radiologist. This report was verified electronically.
[2016-12-20] MEDS: ATORVASTATIN 40 MG TAB PO SCH (21:48)
[2016-12-21] VITALS (13 sets, daily range): BP systolic 111–151; BP diastolic 58–65; PULSE 61–85; RESP 15–20; TEMP 97.5–98.8; O2SAT 93–97
[2016-12-21] MEDS: RESP: ALBUTEROL 2.5 MG/IPRATROPIUM 0.5 MG NEB (SCH) INH ×4 (03:45→21:14)
[2016-12-21] MEDS: NITROGLYCERIN 2% OINT 1 GM PACKET TOPICAL SCH ×2 (06:00)
--- NOTE | 2016-12-21 08:26 | HHI.PR ---
Subjective Remarks chronically SOB, improved from admission no wheezing leg swelling down no cp going for STT son at [facility], discussing diuretics. States the patient cannot have Lasix and Bumex because of sulfa allergy, I wasn't able to obtain concrete answer as to what kind of reaction he has other than the patient's legs became more swollen. Objective Objective Results - Vital Signs Date Time Temp Pulse Resp B/P Pulse Ox O2 Delivery O2 Flow Rate FiO2 12/21/16 07:45 98.1 73 15 124/59 95 12/21/16 04:40 97.7 82 16 147/65 95 12/21/16 04:08 61 12/21/16 00:12 98.3 80 20 117/58 96 12/21/16 00:07 64 12/20/16 21:13 96 2.00 12/20/16 20:25 98.5 80 18 127/58 95 12/20/16 20:11 81 12/20/16 16:04 74 12/20/16 15:31 97.9 73 20 121/58 95 12/20/16 12:00 72 12/20/16 11:34 97.8 65 16 125/58 96 12/20/16 11:28 Nasal Cannula 2.00 I/O 12/20/16 12/20/16 12/20/16 12/21/16 12/21/16 12/21/16 07:00 15:00 23:00 07:00 15:00 23:00 Intake Total 240 ml 720 ml 550 ml Output Total 600 ml 250 ml 200 ml Balance -360 ml 470 ml 350 ml Intake Oral 240 ml 720 ml 550 ml IV Total 0 ml Output Urine Total 600 ml 250 ml 200 ml # Voids 3 # Bowel Movements 1 Result Diagram: 12/18/160 12/20/16 0713 Imaging Last Impressions Chest X-Ray 12/18/162214 Signed Impressions: Service Date/Time: December 22:13 - CONCLUSION: No focal infiltrates seen. Stable cardiomegaly and hiatus hernia.. 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 SKIN: No rashes, ecchymoses or lesions. Cool and dry. HEAD: Atraumatic. Normocephalic. No temporal or scalp tenderness. EYES: Pupils equal round and reactive. Extraocular motions intact. No scleral icterus. No injection or drainage. ENT: Nose without bleeding, purulent drainage or septal hematoma. Throat without erythema, tonsillar hypertrophy or exudate. Uvula midline. Airway patent. NECK: Trachea midline. No JVD or lymphadenopathy. Supple, nontender, no meningeal signs. CARDIOVASCULAR: S1 and S2 on the monitor, unable to detect any murmurs, rubs or gallops. RESPIRATORY: Poor inspiratory effort. Minimal exp. wheeze. Diminished at bases. GASTROINTESTINAL: Abdomen soft, non-tender, nondistended. No hepato-splenomegaly , or palpable masses. No guarding. MUSCULOSKELETAL: Extremities without clubbing, cyanosis. No joint tenderness, effusion, or edema noted. No calf tenderness. Negative Homans sign bilaterally. 2+ pitting edema from the knees down to feet (less to right now, improved to left leg), has fluid-filled blisters to both lower extremities, 1 to the left tibia and left knee and 2-3 to the right tibia. Difficult to palpate pedal pulses, both feet are warm to touch. NEUROLOGICAL: Awake, alert oriented 3. No focal deficits. Urinary Catheter: No Vascular Central Line Catheter: No A/P Diagnosis: (1) COPD exacerbation (2) CHF exacerbation (3) Afib (4) Edema (5) Coronary artery disease Assessment and Plan 86-year-old elderly male with history of COPD and chronic CHF. Presented to the emergency room with increasing shortness of breath, wheezing, cough with sputum production and leg swelling. COPD exacerbation -Continue with DuoNeb's Continue with oxygen at 2 L continue Prednisone 20 mg by mouth daily -continue Symbicort -improving. Chronic CHF, chest x-ray reviewed, stable cardiomegaly. BNP 83 Pedal edema with fluid filled blisters, prior history of cellulitis. Has chronic skin discoloration Coronary artery disease and previous stents Hypertension, stable 2-D echo EF okay, mild to moderate pulmonary hypertension. Likely diastolic heart failure -DC Di, pt. states he is allergic. Had 2 doses yesterday, no reaction, diuresed well -continue Amiloride for now -Appreciate cardiology input, recommended Lasix however patient refused due to sulfa allergy. Son requesting different intravenous diuretic. At this time, patient appears to be responding well to the amiloride, it was started approximately 2 weeks ago. Legs appear with less swelling. We will order GOLDY hose, thigh high CP today radiating to jaw, crushing -Serial troponin negative -Ntg 0.5" to cw q 6-has been refusing, will DC -consulted cardiology-recommended stress test, we will follow up on results after is done today. A. fib, currently sinus rhythm. Patient on aspirin [id number] score of 6 Continue with atenolol Continue with aspirin 81 mg by mouth daily Heparin 5000 units subcutaneous twice a day while he is hospitalized Hyperlipidemia Continue home medication Heparin for DVT prophylaxis Pepcid for GI prophylaxis Case management consultation for discharge planning, resume home health care Shortness of breath improving, responding well to steroids. Legs appear less edematous. We will try GOLDY hose We will follow up on results of stress test If his stress test results negative and no further cardiac interventions, possible discharge later this afternoon with home health care D/W RN D/W Dr. Nguyễn D/W pt/son This patient was seen by myself and Dr. Nguyễn, this note is written on his behalf Problem Qualifiers (1) CHF exacerbation: Qualified Code: I50.9 - Acute on chronic congestive heart failure, unspecified congestive heart failure type (2) Afib: Qualified Code: I48.2 - Chronic atrial fibrillation (3) Edema: Qualified Code: R60.9 - Edema, unspecified type (4) Coronary artery disease: Qualified Code: I25.118 - Coronary artery disease of poarch artery of poarch heart with stable angina pectoris Prabha Hill Dec 21, 2016 08:26
--- NOTE | 2016-12-21 08:28 | HHI.FF ---
Face to Face Verification Diagnosis: (1) COPD (chronic obstructive pulmonary disease) (2) CHF exacerbation (3) Edema (4) Coronary artery disease Physical Therapy Order: Evaluate and Treat Home Health Nursing Order: Medical education Signs/symptoms of disease process CHF education Nursing assessment with vital signs I have seen patient Tj Martinez on 12/21/16. My clinical findings support the need for the requested home health care services because: Patient has SOB Deconditioned w/ increased weakness Need for psychosocial assistance I certify that my clinical findings support that this patient is homebound because: Hx COPD- exertion dyspnea/weakness Unsafe to leave home unassisted Need for psychosocial assistance Poor cardiac reserve Prabha Hill [facility] Dec 21, 2016 08:27
[2016-12-21] MEDS ORDERED: REGADENOSON INJ 0.4 MG/5 ML SYR ONE (08:58)
[2016-12-21] MEDS: ASPIRIN EC 81 MG TABEC PO SCH (09:00)
[2016-12-21] MEDS: ATENOLOL 25 MG TAB PO SCH (09:00)
--- NOTE | 2016-12-21 11:16 | RADRPT ---
EXAM DATE/TIME: 12/21/2016 08:51 [facility] COMPARISON: No previous studies available for comparison. INDICATIONS : Substernal chest pain radiating to the back with dyspnea and bilateral lower extremity swelling. Atri al fibrillation. DOSE: 26.6 mCi Tc99m Myoview at stress. 8.5 mCi Tc99m Myoview at rest. 0.4 mg Lexiscan STRESS SYMPTOMS: Headache. EJECTION FRACTION: 42% MEDICAL HISTORY : Myocardial infarction. Hypercholesterolemia. Chronic obstructive pulmonary disease. Hypertension. JUAQUIN D. Hiatal hernia. SURGICAL HISTORY : Tonsillectomy. Prostatectomy. Coronary artery stent. ENCOUNTER: Initial ACUITY: 2 days PAIN SCALE: 5/10 LOCATION: Substernal chest TECHNIQUE: The patient underwent pharmacologic stress with infusion of prescribed dose. Continuous ECG tracing was monitored during stress. Gated SPECT imaging was performed after stress and conventional SPECT i maging was performed at rest. The examination was performed on a SPECT/CT scanner, both attenuation and non-corrected datasets were reviewed. FINDINGS: DISTRIBUTION: The maximum perfused segment at stress is in the anteroseptal wall. PERFUSION STUDY: There is a small fixed perfusion defect in the inferior wall throughout most of the left ventricle. N o reversible perfusion defect is identified. GATED STUDY: There is hypokinesia of the inferior wall of the mid left ventricle. No other focal wall motion abnor malities identified. CONCLUSION: 1. Fixed perfusion defect of the inferior wall with hypokinesia of this segment suggesting old infarc t. No reversible perfusion defect is identified to indicate ischemia. 2. Reduced left ventricle ejection fraction calculated at 42%. RISK CATEGORY: Intermediate (1-3% Annual Mortality Rate) Yosvany Alves MD on December 21, 2016 at 11:11 Board Certified Radiologist. This report was verified electronically.
[2016-12-21 12:29] LABS: BICARBONATE 25.4 MEQ/L (21.0-32.0); POTASSIUM 4.5 MEQ/L (3.5-5.1)
[2016-12-21] MEDS: aMILoride HCL 5 MG TAB PO SCH (13:01)
[2016-12-21] MEDS: predniSONE 20 MG TAB PO SCH (13:02)
[2016-12-21] MEDS: SODIUM CHLORIDE 0.9% FLUSH 10 ML FLUSH IV FLUSH SCH ×2 (13:03→21:27)
[2016-12-21] MEDS: BUDESONIDE-FORMOTEROL 80/4.5 MCG INHALER INH SCH ×2 (13:04→21:27)
[2016-12-21] MEDS: HEPARIN SODIUM - SQ 10,000 UNITS/ML VIAL SQ SCH ×2 (13:05→21:28)
--- NOTE | 2016-12-21 17:29 | EKG ---
Date Performed: 12/20/2016 Time Performed: 08:48:36 PTAGE: 86 years EKG: Sinus rhythm INFERIOR MYOCARDIAL INFARCTION ABNORMAL ECG Since PREVIOUS TRACING , no significant change noted PREVIOUS TRACIN12/18/2016 22.52 DOCTOR: Ashley Duran Interpretating Date/Time 12/21/2016 17:28:16
[2016-12-21] MEDS: ATORVASTATIN 40 MG TAB PO SCH (21:27)
[2016-12-21] MEDS: ACETAMINOPHEN/HYDROcodone 325 MG/10 MG TAB PO PRN (21:29)
[2016-12-22 03:07] VITALS: BP 122/64; PULSE 77; RESP 16; RESP 18; TEMP 98.7; O2SAT 93; O2SAT 94
[2016-12-22] MEDS: RESP: ALBUTEROL 2.5 MG/IPRATROPIUM 0.5 MG NEB (SCH) INH (03:09)
[2016-12-22 03:21] VITALS: PULSE 79
--- NOTE | 2016-12-22 07:39 | PD.CARD.PN ---
Subjective Subjective Remarks PT without complaints Objective Medications Current Medications Medications (Trade) Dose Ordered Sig/Dominga Route Start Time Stop Time Status Last Admin (NS Flush) 2 ml UNSCH PRN IVF 12/18/16 22:15 12/18/16 22:47 (NS Flush) 2 ml BID IV FLUSH 12/19/16 09:00 12/21/16 21:27 (Tylenol) 650 mg Q4H PRN PO 12/19/16 01:00 (Zofran Inj) 4 mg Q6H PRN IVP 12/19/16 01:00 (Narcan Inj) 0.4 mg UNSCH PRN IV 12/19/16 01:00 (Milk Of Magnjayleen Liq) 30 ml Q12H PRN PO 12/19/16 01:00 (Senokot) 17.2 mg Q12H PRN PO 12/19/16 01:00 (Heparin Inj) 5,000 units Q12HR SQ 12/19/16 09:00 12/21/16 21:28 (Midamor) 10 mg DAILY PO 12/19/16 09:00 12/21/16 13:01 (Tenormin) 12.5 mg DAILY PO 12/19/16 09:00 12/21/16 09:00 (Lipitor) 40 mg HS PO 12/19/16 21:00 12/21/16 21:27 (Symbicort 80-4.5 Mcg Inh) 2 puff Q12HR INH 12/19/16 09:00 12/21/16 21:27 (Deltasone) 20 mg DAILY PO 12/20/16 09:00 12/21/16 13:02 (Ecotrin Ec) 81 mg DAILY PO 12/19/16 09:00 12/21/16 09:00 ([place] 10-325 Mg) 1 tab Q4H PRN PO 12/19/16 13:00 12/21/16 21:29 Vital Signs / I&O Vital Signs Date Time Temp Pulse Resp B/P Pulse Ox O2 Delivery O2 Flow Rate FiO2 12/22/16 03:21 79 12/22/16 03:07 98.7 77 16 122/64 93 12/21/16 23:56 81 12/21/16 23:41 98.0 72 17 111/62 94 12/21/16 22:30 21 12/21/16 21:16 97 Nasal Cannula 2.00 12/21/16 20:09 80 12/21/16 19:24 97.5 74 16 142/65 93 12/21/16 16:40 98.8 85 16 112/58 94 12/21/16 14:55 94 Nasal Cannula 2.00 12/21/16 11:16 98.4 75 16 124/59 93 12/21/16 07:45 98.1 73 15 124/59 95 I/O 12/21/16 12/21/16 12/21/16 12/22/16 12/22/16 12/22/16 07:00 15:00 23:00 07:00 15:00 23:00 Intake Total 550 ml Output Total 200 ml Balance 350 ml Intake Oral 550 ml IV Total 0 ml Output Urine Total 200 ml # Voids 3 # Bowel Movements 1 Physical Exam GENERAL: Well developed, well nourished. No acute distress. HEENT: Jugular venous pressure is normal. CHEST: Lungs clear to auscultation bilaterally. Unlabored respiratory effort. CARDIAC: Regular rate and rhythm without S3, S4, or murmur. ABDOMEN: Soft, nontender, no hepatosplenomegaly. Bowel sounds present. EXTREMITIES: No clubbing, cyanosis, tr edema. Laboratory Laboratory Tests Test 12/21/16 11:30 Sodium Level 142 MEQ/L Potassium Level 4.5 MEQ/L Chloride Level 109 MEQ/L Carbon Dioxide Level 25.4 MEQ/L Anion Gap 8 MEQ/L Blood Urea Nitrogen 26 MG/DL Creatinine 0.93 MG/DL Estimat Glomerular Filtration 77 ML/MIN Rate Random Glucose 104 MG/DL Calcium Level 8.9 MG/DL Imaging Last 72 hours Impressions Myocardial Perfusion Scan Nuc Med 12/21/16 0000 Signed Impressions: Service Date/Time: Wednesday, December 21, 2016 08:51 - CONCLUSION: 1. Fixed perfusion defect of the inferior wall with hypokinesia of this segment suggesting old infarct. No reversible perfusion defect is identified to indicate ischemia. 2. Reduced left ventricle ejection fraction calculated at 42%%. RISK CATEGORY: Intermediate (1-3%% Annual Mortality Rate) Yosvany Alves MD Lower Extremity Ultrasound 12/20/16 0000 Signed Impressions: Service Date/Time: Tuesday, December 20, 2016 15:45 - CONCLUSION: Normal examination. Primo Jaimes MD Assessment and Plan Assessment and Plan CP, hx CAD-- atypical CP, no ischemia on nuc -continue med management Cardiomyopathy- EF 42% Edema- ok in GOLDY mathis, needs another set dispo- ok for d/c Alma Thompson MD Dec 22, 2016 07:39
[2016-12-22 08:34] VITALS: O2SAT 94
--- NOTE | 2016-12-22 09:15 | HHI.PR ---
Subjective Remarks Sitting on side of bed Alert responsive Hoping to go home (Janeen Simeon) Objective Objective Results - Vital Signs Date Time Temp Pulse Resp B/P Pulse Ox O2 Delivery O2 Flow Rate FiO2 12/22/16 03:21 79 12/22/16 03:07 98.7 77 16 122/64 93 12/21/16 23:56 81 12/21/16 23:41 98.0 72 17 111/62 94 12/21/16 22:30 21 12/21/16 21:16 97 Nasal Cannula 2.00 12/21/16 20:09 80 12/21/16 19:24 97.5 74 16 142/65 93 12/21/16 16:40 98.8 85 16 112/58 94 12/21/16 14:55 94 Nasal Cannula 2.00 12/21/16 11:16 98.4 75 16 124/59 93 I/O 12/21/16 12/21/16 12/21/16 12/22/16 12/22/16 12/22/16 06:59 14:59 22:59 06:59 14:59 22:59 Intake Total 550 ml Output Total 200 ml Balance 350 ml Intake Oral 550 ml IV Total 0 ml Output Urine Total 200 ml # Voids 3 # Bowel Movements 1 (Janeen Simeon) Result Diagram: 12/18/16 2240 12/21/16 1130 ROS General: Fatigue (controlled and at his baseline), Weakness, Other (10 point ROS done positives noted) Pulmonary: SOB (exertional) (Janeen Simeon) Physical Exam Physical Exam PHYSICAL EXAMINATION GENERAL: This is a elderly frail male Dangling on side of bed He is alert and awake HEAD: Normocephalic OROPHARYNGEAL: Oropharynx without erythema or edema. NECK: Supple Trachea midline without deviation. CARDIAC: Regular rhythm, regular rate, S1 and S2 are heard. LUNGS: Mild diminished to auscultation bilaterally. No wheezing no rhonchi noted ABDOMEN: Soft, nontender, no organomegaly or masses. Bowel sounds are heard in all four quadrants. No rebound. No guarding. EXTREMITIES: no edema. NEUROLOGICAL: Patient mood and affect appropriate. No focal deficit SKIN:Warm and moist (Janeen Simeon) A/P Assessment and Plan COPD exacerbation, controlled no shortness of breath noted, continue medical management dual nebs, O2, by mouth steroids Chronic CHF, chest x-ray reviewed, stable cardiomegaly. BNP 83 Pedal edema with fluid filled blisters, prior history of cellulitis. Has chronic skin discoloration Coronary artery disease and previous stents Hypertension, medical management, controlled blood pressure CP , none this a.m., cardiology consult and input appreciate, patient's negative for ischemia with nuclear scan cardiomyopathy with EF at 42% A. fib, currently sinus rhythm. Patient on aspirin Medical management and monitor ECG Heparin for DVT prophylaxis Pepcid for GI prophylaxis Case management consultation for discharge planning, resume home health care Probable today, okay for discharge per service order dispatcher Activity encouraged and increased today per patient's tolerance D/W RN D/W , seen on his behalf D/W pt (Janeen Simeon) Assessment and Plan seen, examined by myself, Dr Asher, today Discussed with patient Patient was to go home, discharge home with home health Fluid restriction, salt restriction Discussed with mid level provider The exam, history, and the medical decision-making described in the above note were completed with the assistance of the mid-level provider. I reviewed the findings presented. I attest that I had a [id number] encounter with the patient on the same day, and personally performed and documented my assessment and findings in the medical record. 40 minutes (Abida Asher MD) Janeen Simeon Dec 22, 2016 09:15 Abida Asher MD Dec 22, 2016 14:06
[2016-12-22 09:20] VITALS: BP 129/60; PULSE 66; RESP 18; TEMP 97.6; O2SAT 95
[2016-12-22] MEDS: ASPIRIN EC 81 MG TABEC PO SCH (09:27)
[2016-12-22] MEDS: predniSONE 20 MG TAB PO SCH (09:27)
[2016-12-22] MEDS: ATENOLOL 25 MG TAB PO SCH (09:27)
[2016-12-22] MEDS: aMILoride HCL 5 MG TAB PO SCH (09:27)
[2016-12-22] MEDS: SODIUM CHLORIDE 0.9% FLUSH 10 ML FLUSH IV FLUSH SCH (09:28)
[2016-12-22] MEDS: BUDESONIDE-FORMOTEROL 80/4.5 MCG INHALER INH SCH (09:28)
[2016-12-22] MEDS: HEPARIN SODIUM - SQ 10,000 UNITS/ML VIAL SQ SCH (09:28)
[2016-12-22 12:42] VITALS: BP 124/63; PULSE 71; RESP 18; TEMP 98; O2SAT 94
[2016-12-22] MEDS ORDERED: BUME1TAB PO (14:09)
--- NOTE | 2017-01-18 17:42 | HHI.DS ---
Discharge Summary Admission Date Dec 19, 2016 at 00:56 Discharge Date: Dec 22, 2016 Admitting Diagnosis LE Edema; COPD (1) COPD exacerbation ICD Codes: J44.1 - Chronic obstructive pulmonary disease with (acute) exacerbation Status: Acute (2) CHF exacerbation ICD Codes: I50.9 - Heart failure, unspecified Status: Acute (3) Afib ICD Codes: I48.91 - Unspecified atrial fibrillation Status: Acute (4) Edema ICD Codes: R60.9 - Edema, unspecified Status: Acute (5) Coronary artery disease ICD Codes: I25.10 - Coronary artery disease Status: Acute Imaging Last Impressions Myocardial Perfusion Scan Nuc Med 12/21/16 0000 Signed Impressions: Service Date/Time: Wednesday, December 21, 2016 08:51 - CONCLUSION: 1. Fixed perfusion defect of the inferior wall with hypokinesia of this segment suggesting old infarct. No reversible perfusion defect is identified to indicate ischemia. 2. Reduced left ventricle ejection fraction calculated at 42%%. RISK CATEGORY: Intermediate (1-3%% Annual Mortality Rate) Yosvany Alves MD Lower Extremity Ultrasound 12/20/16 0000 Signed Impressions: Service Date/Time: Tuesday, December 20, 2016 15:45 - CONCLUSION: Normal examination. Primo Jaimes MD Chest X-Ray 12/18/16 2215 Signed Impressions: Service Date/Time: December 22:13 - CONCLUSION: No focal infiltrates seen. Stable cardiomegaly and hiatus hernia.. Chris Salas MD Hospital Course This is a pleasant 86-year-old male with significant past medical history of CHF , pedal edema, COPD uses oxygen at night, hypertension, hyperlipidemia, coronary artery disease and previous stents, atrial fibrillation, prostate cancer status post seeding. Patient presents to the emergency room with complaint of increasing shortness of breath more than usual associated with chills, no fevers, cough, wheezing, sputum that is yellow white. He had chest heaviness yesterday but not today. Has been using nebulizers and uses oxygen at night. Patient has also noted increased weight gain and leg swelling all the way up to his waist. Positive for orthopnea. He does have some fluid- filled blisters on his left mendez and knee. He does use GOLDY hose at times and has been compliant with taking diuretics. Indicates that he watches his salt intake at home. Patient presented to the emergency room, laboratory workup was completed. It was essentially unremarkable, troponin negative. B natruretic peptide 83. Chest x-ray did not reveal any acute findings, stable cardiomegaly and hiatal hernia. Patient was given IV steroids, DuoNeb's, amiloride. Patient indicates that he is feeling slightly improved. States that he recently increased his oral steroids himself. 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 He does have a history of atrial fibrillation and only takes aspirin although he has prior history of stroke. Indicates that he doesn't want to take any anticoagulations because of stomach problems. States that he has a large hiatal hernia that sometimes bothers him and presses on his diaphragm and he has more difficulty breathing and laying flat. Patient was admitted for further evaluation and treatment. (1) COPD exacerbation (2) CHF exacerbation (3) Afib (4) Edema (5) Coronary artery disease During the course of the hospitalization the following took place: 86-year-old elderly male with history of COPD and chronic CHF. Presented to the emergency room with increasing shortness of breath, wheezing, cough with sputum production and leg swelling. COPD exacerbation -Continued with DuoNeb's Continued with oxygen at 2 L continued Prednisone 20 mg by mouth daily -continue Symbicort -improved, shortness of breath at baseline. Chronic CHF, chest x-ray reviewed, stable cardiomegaly. BNP 83 Pedal edema with fluid filled blisters, prior history of cellulitis. Has chronic skin discoloration Coronary artery disease and previous stents Hypertension, stable 2-D echo EF okay, mild to moderate pulmonary hypertension. Likely diastolic heart failure -DC Bumex, pt. stated he was allergic. Had 2 doses initially, diurese well. Did not have any reactions. -continued Amiloride for now -Appreciate cardiology input, recommended Lasix however patient refused due to sulfa allergy. Son requesting different intravenous diuretic.Patient appears to be responding well to the amiloride, it was started approximately 2 weeks ago. Legs appeared with less swelling. GOLDY mittale, thigh high ordered. CP today radiating to jaw, crushing -Serial troponin negative -Ntg 0.5" to cw q 6-ordered but refused. -consulted cardiology-recommended stress test STT done, no acute findings. Stable, cleared for dc A. fib, currently sinus rhythm. Patient on aspirin [id number] score of 6 Continued with atenolol Continued with aspirin 81 mg by mouth daily Heparin 5000 units subcutaneous twice a day while he was hospitalized Hyperlipidemia Continued home medication Heparin for DVT prophylaxis Pepcid for GI prophylaxis Case management consultation for discharge planning, resumed home health care Shortness of breath improved responded well to steroids. Legs appear less edematous. Ordered GOLDY mtahis Patient stabilize, was at baseline Cleared by cardiology for discharge Discharge home with home health care with orders to continue on Bumex, patient did not have allergy Fluid restriction was also instructed to follow at home Pt Condition on Discharge: Stable Discharge Disposition: Disch w/ Home Health Serv Discharge Instructions DIET: Follow Instructions for: Heart Healthy Diet Additional Diet Instructions: 1000 cc fluid restriction, 2 g salt restriction Activities you can perform: Weight Bearing as Ricarda New Medications: Bumetanide (Bumetanide) 1 Mg Tab 1 MG PO DAILY, #30 TAB 6 Refills Continued Medications: Albuterol 6.7 GM Inh (Proventil Hfa 6.7 GM Inh) 90 Mcg/Act Aer 2 PUFF INH Q4-6H PRN for SHORTNESS OF BREATH, #1 INHALER 0 Refills Albuterol 6.7 GM Inh (Proventil Hfa 6.7 GM Inh) 90 Mcg/Act Aer 1 PUFF INH Q4H PRN for SHORTNESS OF BREATH, #1 INHALER 0 Refills Albuterol Neb (Albuterol Neb) 0.63 Mg/3 Ml Neb 0.63 MG NEB Q4HR NEB PRN for SHORTNESS OF BREATH, #25 NEBULE 0 Refills Alprazolam (Alprazolam) 0.25 Mg Tab 0.25 MG PO Q4H PRN for ANXIETY, TAB [address] (Aspir-81) 81 Mg Tabdr Atenolol (Atenolol) 25 Mg Tab 12.5 MG PO DAILY for Blood Pressure Management, #30 TAB 0 Refills Atorvastatin (Atorvastatin) 40 Mg Tab 40 MG PO HS for Cholesterol Management, #30 TAB 0 Refills Budesonide-Formoterol Inh (Symbicort Inh) 80-4.5 Mcg/Act Aero 2 PUFF INH Q12HR for Asthma Management, #1 INHALER 0 Refills Dextromethorphan-Guaifenesin (Mucinex DM) 30-600 Mg Tab 1 TAB PO BID PRN for CHEST CONGESTION AND/OR COUGH, TAB 0 Refills Hydrocodone-Acetaminophen (Hydrocodone-Acetaminophen) 10-325 mg Tab 1 TAB PO Q6H PRN for PAIN, TAB 0 Refills Nitroglycerin SL (Nitrostat SL) 0.4 Mg Subl 0.4 MG SL DIRECTED PRN for CHEST PAIN, #100 TAB.SL 0 Refills 1 tablet under the tongue as needed for chest pain. Repeat every 5 minutes for a total of 3 DOSES or call 911 if NO relief. Potassium Chloride ER (Potassium Chloride ER) 20 Meq Tab 20 MEQ PO DAILY for Electrolyte Replacement, #30 TAB 0 Refills Prednisone (Prednisone) 1 Mg Tab 2 MG PO DAILY, TAB 0 Refills Ranitidine (Ranitidine) 150 Mg Cap 150 MG PO DAILY, #30 CAP 0 Refills Temazepam (Temazepam) 15 Mg Cap 15 MG PO HS PRN for INSOMNIA, #30 CAP 0 Refills Prabha Hill [facility] Jan 18, 2017 17:42
[2017-02-05] MEDS ORDERED: ENOX40P SQ (02:11)
[2017-02-05] MEDS ORDERED: SYMB80AE INH (02:11)
[2017-02-05] MEDS ORDERED: TAMS5CAP PO (02:11)
[2017-02-05] MEDS ORDERED: VENTAER INH (02:11)
[2017-02-05] MEDS ORDERED: SENN1TAB PO (02:11)
[2017-02-05] MEDS ORDERED: ATOR40TA16 PO (02:11)
[2017-02-05] MEDS ORDERED: THERTAB15 PO (02:11)
[2017-02-05] MEDS ORDERED: ATEN25TA PO (02:11)
[2017-02-05] MEDS ORDERED: IPRASOL NEB (02:11)
[2017-02-05] MEDS ORDERED: FAMO20TA2 PO (02:11)
[2017-02-05] MEDS ORDERED: IPRASOL INH (02:11)
[2017-02-05] MEDS ORDERED: NYST10007 TOPICAL (02:11)
[2017-02-05] MEDS ORDERED: ASPI81CH25 PO (02:11)
[2017-02-20] MEDS ORDERED: GETGO ROLLING W1 MI1 (12:26)
[2017-02-20] MEDS ORDERED: WHEEMIS3 (12:26)
[2017-02-20] MEDS ORDERED: COMMODE 3-IN-11 MIS (12:26)
[2017-02-26] MEDS ORDERED: ATEN25TA PO (08:23)
[2017-02-26] MEDS ORDERED: SYMB80AE INH (08:23)
[2017-02-26] MEDS ORDERED: SENN1TAB PO (08:23)
[2017-02-26] MEDS ORDERED: ASPI81CH25 PO (08:23)
[2017-02-26] MEDS ORDERED: THERTAB15 PO (08:23)
[2017-02-26] MEDS ORDERED: VENTAER INH (08:23)
[2017-02-26] MEDS ORDERED: ROPI.25 PO (08:23)
[2017-02-26] MEDS ORDERED: ATOR40TA16 PO (08:23)
[2017-02-26] MEDS ORDERED: FAMO1TAB73 PO (08:23)
[2017-02-26] MEDS ORDERED: DIGO0.12 PO (08:23)
[2017-02-26] MEDS ORDERED: HYDR-3516 PO (08:23)
[2017-02-26] MEDS ORDERED: TAMS5CAP PO (08:23)
[2017-02-26] MEDS ORDERED: SPIR25 PO (08:23)
== END 2016-12-22 15:01 | disposition home or self-care (01) ==
LOC: NEPC 21:31 → NEDA 12-19 00:56 → NEPFCDU 12-19 04:33
PROVIDERS: ADMIT Specialist; ATTEND Specialist
DX: J44.1 Chronic obstructive pulmonary disease with (acute) exacerbation (principal); I11.0 Hypertensive heart disease with heart failure; I50.9 Heart failure, unspecified; I48.2 Chronic atrial fibrillation; R60.0 Localized edema; R07.9 Chest pain, unspecified; R94.31 Abnormal electrocardiogram [ECG] [EKG]; Z23 Encounter for immunization; R51 Headache; R68.84 Jaw pain; R68.83 Chills (without fever); I25.118 Atherosclerotic heart disease of native coronary artery with other forms of angina pectoris; J45.909 Unspecified asthma, uncomplicated; I25.2 Old myocardial infarction; E78.5 Hyperlipidemia, unspecified; E78.00 Pure hypercholesterolemia, unspecified; I42.9 Cardiomyopathy, unspecified; K21.9 Gastro-esophageal reflux disease without esophagitis; M54.9 Dorsalgia, unspecified; M48.00 Spinal stenosis, site unspecified; K44.9 Diaphragmatic hernia without obstruction or gangrene; H91.92 Unspecified hearing loss, left ear; R63.5 Abnormal weight gain; R23.8 Other skin changes; M19.90 Unspecified osteoarthritis, unspecified site; Z95.5 Presence of coronary angioplasty implant and graft; Z79.899 Other long term (current) drug therapy; Z79.82 Long term (current) use of aspirin; Z86.73 Personal history of transient ischemic attack (TIA), and cerebral infarction without residual deficits; Z87.891 Personal history of nicotine dependence; Z85.46 Personal history of malignant neoplasm of prostate; Z99.81 Dependence on supplemental oxygen; Z88.2 Allergy status to sulfonamides
CPT/HCPCS: 71010; 78452; 80048; 80053; 82607; 83735; 83880; 84425; 84484; 85025; 90732; 93005; 93017; 93306; 93970; 94640; 94664; 96372; 96374; 96375; 96376; 99285; A9502; G0009; G0378; J1644; J2785; J2930; J7512; J7613; 90471

== ENCOUNTER 2017-01-31 13:01 | Inpatient (IN) | payer MEDICARE, OTHER ==
[~2017-01-31] VITALS: Ht 157.5 cm; Wt 82.5 kg
[~2017-01-31 13:01] MED LIST changes: +BUME1TAB PO; -BUME2TAB PO; -TRAM50TA PO
[2017-01-31] MEDS ORDERED: SODIUM CHLORIDE 0.9% FLUSH 10 ML FLUSH IVF PRN (13:30)
--- NOTE | 2017-01-31 13:30 | PD ---
HPI Chief Complaint: right hip pain Time Seen by Provider: 13:24 Travel History International Travel<30 days: No Contact w/Intl Traveler<30days: No Traveled to known affect area: No History of Present Illness HPI The patient is a 86-year-old male who presents to the emergency department for right hip pain. The patient was walking his dog earlier today when he tripped and landed on the right side. The patient complains of right hip pain and right arm pain located over the proximal right humerus. The patient denies any head trauma or loss of consciousness. He denies any acute neck pain after the fall. He does complain of mild, chronic shortness of breath secondary to COPD, and currently uses oxygen via nasal cannula at night. The patient complains of right hip pain is worse with flexion as well as weightbearing, states his right hip feels better when it is flexed at the knee. He also complains of low back pain that radiates from the right hip across the lower aspect of the back. He denies any acute chest pain, nausea, vomiting , or abdominal pain. Symptoms are moderate, exacerbated after falling, slightly alleviated with 8 mg of morphine given intravenously by EMS prior to arrival. 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) Endocrine: No Gastrointestinal Disorders: Yes GERD: Yes Genitourinary: Yes Headaches: No Hepatitis: No Hiatal Hernia: Yes (AND UMBILICAL) Hypertension: Yes Immune Disorder: No Implanted Vascular Access Dvce: Yes Kidney Stones: Yes (X2, REMOVED) Musculoskeletal: Yes Neurologic: Yes (SPINAL STENOSIS) Psychiatric: No Reproductive: No Respiratory: Yes Immunizations Current: Yes Migraines: No Myocardial Infarction: Yes (02/2010) Radiation Therapy: Yes (SEED IMPLANTS PROSTATE) Renal Failure: No Seizures: No Sleep Apnea: No Thyroid Disease: No Ulcer: No Past Surgical History Appendectomy: No Body Medical Devices: CORONARY STENTS X5 Cholecystectomy: No Coronary Stent: Yes (3 OVER 12 YEARS; 2 MORE PLACED 02/2010 FOR A TOTAL OF 5 STENTS) Eye Surgery: Yes (CATARACTS) Genitourinary Surgery: Yes (TESTICULAR TORSION 1950, KIDNEY STONE REMOVAL) Gynecologic Surgery: No Prostatectomy: Yes ([place] SEEDING ) Tonsillectomy: Yes Other Surgery: Yes Social History Alcohol Use: Yes (BEER, RARE) Tobacco Use: No (CIGARETTES QUIT IN 1984- SMOKED FOR APPROX 45+YRS) Substance Use: No Allergies-Medications (Allergen,Severity, Reaction): Coded Allergies: Sulfa (Sulfonamide Antibiotics) (Unverified Allergy, Severe, Rash, 01/31/17 ) ciprofloxacin (Unverified Allergy, Severe, HIVES, 01/31/17) levofloxacin (Unverified Allergy, Severe, ITCHING, 01/31/17) morphine (Unverified Allergy, Severe, PT DENIES, 01/31/17) PT STATES HE IS NOT ALLERGIC Influenza Virus Vaccines (Unverified Allergy, Intermediate, Hives, 01/31/17 ) furosemide (Unverified Allergy, Intermediate, Swelling, 01/31/17) SWELLING IN LEGS Reported Meds & Prescriptions Reported Meds & Active Scripts Active Bumetanide 1 Mg Tab 1 Mg PO DAILY Reported Duoneb (Ipratropium-Albuterol Neb) 0.5-2.5 Mg/3 Ml Neb 1 Nebule INH QID PRN [mybetrig] 50 Mg PO DAILY Spironolactone 100 Mg Tab 100 Mg PO DAILY Prednisone 2.5 Mg Tab 2 Mg PO DAILY Mucinex DM (Dextromethorphan-Guaifenesin) 30-600 Mg Tab 1 Tab PO BID PRN Temazepam 15 Mg Cap 15 Mg PO HS PRN Atenolol 25 Mg Tab 12.5 Mg PO DAILY Proventil Hfa 6.7 GM Inh (Albuterol Sulfate) 90 Mcg/Act Aer 2 Puff INH Q4-6H PRN Prednisone 1 Mg Tab 2 Mg PO DAILY Albuterol Neb (Albuterol Sulfate) 0.63 Mg/3 Ml Neb 0.63 Mg NEB Q4HR NEB PRN Nitrostat SL (Nitroglycerin) 0.4 Mg Subl 0.4 Mg SL DIRECTED PRN 1 tablet under the tongue as needed for chest pain. Repeat every 5 minutes for a total of 3 DOSES or call 911 if NO relief. Alprazolam 0.25 Mg Tab 0.25 Mg PO Q4H PRN Hydrocodone-Acetaminophen 10-325 mg Tab 1 Tab PO Q6H PRN Symbicort Inh (Budesonide/Formoterol Fumarate) 80-4.5 Mcg/Act Aero 2 Puff INH Q12HR Ranitidine (Ranitidine HCl) 150 Mg Cap 150 Mg PO DAILY Atorvastatin (Atorvastatin Calcium) 40 Mg Tab 40 Mg PO HS Aspir-81 (Aspirin) 81 Mg Tabdr Review of Systems Except as stated in HPI: all other systems reviewed are Neg General / Constitutional: No: Fever HENT: No: Headaches, Neck Pain Cardiovascular: No: Chest Pain or Discomfort Respiratory: Positive: Shortness of Breath (chronic shortness of breath secondary to COPD) Gastrointestinal: No: Nausea, Vomiting, Abdominal Pain Musculoskeletal: Positive: Limited ROM, Edema, Pain Neurologic: No: Paresthesia, Sensory Disturbance Physical Exam Narrative GENERAL: Awake, alert, pleasant 86-year-old male who appears his stated age and is on a nebulizer by EMS when he arrives. SKIN: Focused skin assessment warm/dry. HEAD: Atraumatic. Normocephalic. EYES: Wearing glasses. No injection or drainage. ENT: No nasal bleeding or discharge. Mucous membranes pink and moist. NECK: Trachea midline. No JVD. CARDIOVASCULAR: Regular rate and rhythm. No murmur appreciated. RESPIRATORY: No accessory muscle use. Prolonged expiratory phase. GASTROINTESTINAL: Abdomen soft, obese, reducible umbilical hernia and abdominal diastases noted. MUSCULOSKELETAL: Edema lower extremities from the knees inferiorly with dressings in place. The right hip is flexed at the hip and knee, tender to palpation of lateral aspect of the right hip. Back: No tenderness of the thoracic or lumbar vertebrae, mild tenderness of the sacroiliac bilateral. NEUROLOGICAL: Awake and alert. No obvious cranial nerve deficits. Motor grossly within normal limits. Normal speech. Nonfocal. Oriented 4. Follows commands without difficulty. PSYCHIATRIC: Appropriate mood and affect; insight and judgment normal. Data Data Last Documented VS Vital Signs Date Time Temp Pulse Resp B/P (MAP) Pulse Ox O2 Delivery O2 Flow Rate FiO2 01/31/17 15:10 108 18 115/57 (76) 92 Nasal Cannula 3.00 01/31/17 14:00 98.9 Orders Orders Electrocardiogram (01/31/17 13:24) Complete Blood Count With Diff (01/31/17 13:24) Comprehensive Metabolic Panel (01/31/17 13:24) Prothrombin Time / Inr (Pt) (01/31/17 13:24) Act Partial Throm Time (Ptt) (01/31/17 13:24) Type And Screen (01/31/17 13:24) Chest, Single Ap (01/31/17 13:24) Hip, Uni(Ap&Lat) W Ap Pelvis (01/31/17 13:24) Iv Access Insert/Monitor (01/31/17 13:24) Oximetry (01/31/17 13:24) Ecg Monitoring (01/31/17 13:24) Sodium Chloride 0.9% Flush (Ns Flush) (01/31/17 13:30) Humerus (Min 2vws) (01/31/17 ) Hand, Limited (2vws) (01/31/17 ) Support Splint (01/31/17 14:30) Consult Orthopedic (01/31/17 ) Admit Order (Ed Use Only) (01/31/17 15:08) Labs Laboratory Tests Test 01/31/17 14:25 White Blood Count 15.3 TH/MM3 Red Blood Count 4.72 MIL/MM3 Hemoglobin 14.5 GM/DL Hematocrit 44.6 % Mean Corpuscular Volume 94.5 FL Mean Corpuscular Hemoglobin 30.8 PG Mean Corpuscular Hemoglobin Concent 32.5 % Red Cell Distribution Width 14.3 % Platelet Count 212 TH/MM3 Mean Platelet Volume 7.4 FL Neutrophils (%) (Auto) 88.6 % Lymphocytes (%) (Auto) 2.6 % Monocytes (%) (Auto) 6.5 % Eosinophils (%) (Auto) 0.5 % Basophils (%) (Auto) 1.8 % Neutrophils # (Auto) 13.5 TH/MM3 Lymphocytes # (Auto) 0.4 TH/MM3 Monocytes # (Auto) 1.0 TH/MM3 Eosinophils # (Auto) 0.1 TH/MM3 Basophils # (Auto) 0.3 TH/MM3 CBC Comment DIFF FINAL Differential Comment Prothrombin Time 11.3 SEC Prothromb Time International Ratio 1.0 RATIO Activated Partial Thromboplast Time 28.8 SEC Blood Urea Nitrogen 28 MG/DL Creatinine 0.75 MG/DL Random Glucose 98 MG/DL Total Protein 6.0 GM/DL Albumin 3.0 GM/DL Calcium Level 8.6 MG/DL Alkaline Phosphatase 77 U/L Aspartate Amino Transf (AST/SGOT) 20 U/L Alanine Aminotransferase (ALT/SGPT) 22 U/L Total Bilirubin 1.5 MG/DL Sodium Level 140 MEQ/L Potassium Level 4.1 MEQ/L Chloride Level 105 MEQ/L Carbon Dioxide Level 26.2 MEQ/L Anion Gap 9 MEQ/L Estimat Glomerular Filtration Rate 99 ML/MIN MDM Medical Decision Making Medical Screen Exam Complete: Yes Emergency Medical Condition: Yes Medical Record Reviewed: Yes Interpretation(s) EKG reveals sinus tachycardia with a heart rate of 106. There appear to be P waves in lead V4. Q waves noted in lead 3 and aVF. Wavy baseline noted. Last Impressions Hip and Pelvis X-Ray 01/31/17 1324 Signed Impressions: Service Date/Time: Tuesday, January 31, 2017 13:51 - CONCLUSION: 1. Right femoral neck fracture, as above. Danilo Rodrigez MD Chest X-Ray 01/31/17 1324 Signed Impressions: Service Date/Time: Tuesday, January 31, 2017 14:05 - CONCLUSION: No acute abnormality with stable cardiomegaly and hiatal hernia. Danilo Rodrigez MD Humerus X-Ray 01/31/17 0000 Signed Impressions: Service Date/Time: Tuesday, January 31, 2017 14:07 - CONCLUSION: 1. No acute fracture or significant dislocation. 2. Calcific tendinitis and degenerative osteoarthritis. Danilo Rodrigez MD Hand X-Ray 01/31/17 0000 Signed Impressions: Service Date/Time: Tuesday, January 31, 2017 14:11 - CONCLUSION: 1. No acute fracture or dislocation. 2. Advanced degenerative osteoarthritis. Danilo Rodrigez MD Laboratory Tests Test 01/31/17 14:25 White Blood Count 15.3 TH/MM3 Red Blood Count 4.72 MIL/MM3 Hemoglobin 14.5 GM/DL Hematocrit 44.6 % Mean Corpuscular Volume 94.5 FL Mean Corpuscular Hemoglobin 30.8 PG Mean Corpuscular Hemoglobin Concent 32.5 % Red Cell Distribution Width 14.3 % Platelet Count 212 TH/MM3 Mean Platelet Volume 7.4 FL Neutrophils (%) (Auto) 88.6 % Lymphocytes (%) (Auto) 2.6 % Monocytes (%) (Auto) 6.5 % Eosinophils (%) (Auto) 0.5 % Basophils (%) (Auto) 1.8 % Neutrophils # (Auto) 13.5 TH/MM3 Lymphocytes # (Auto) 0.4 TH/MM3 Monocytes # (Auto) 1.0 TH/MM3 Eosinophils # (Auto) 0.1 TH/MM3 Basophils # (Auto) 0.3 TH/MM3 CBC Comment DIFF FINAL Differential Comment Prothrombin Time 11.3 SEC Prothromb Time International Ratio 1.0 RATIO Activated Partial Thromboplast Time 28.8 SEC Blood Urea Nitrogen 28 MG/DL Creatinine 0.75 MG/DL Random Glucose 98 MG/DL Total Protein 6.0 GM/DL Albumin 3.0 GM/DL Calcium Level 8.6 MG/DL Alkaline Phosphatase 77 U/L Aspartate Amino Transf (AST/SGOT) 20 U/L Alanine Aminotransferase (ALT/SGPT) 22 U/L Total Bilirubin 1.5 MG/DL Sodium Level 140 MEQ/L Potassium Level 4.1 MEQ/L Chloride Level 105 MEQ/L Carbon Dioxide Level 26.2 MEQ/L Anion Gap 9 MEQ/L Estimat Glomerular Filtration Rate 99 ML/MIN Differential Diagnosis Differential diagnosis includes hip fracture, pelvic fracture, hip contusion, hip dislocation, lumbar fracture, strain, sprain, mechanical fall, humeral fracture. Narrative Course IV was established, labs are drawn and sent, and the patient was placed on cardiac telemetry monitoring and continuous pulse oximetry monitoring. EKG was ordered and interpreted. Chest x-ray, pelvis x-ray, right hip x-ray, right humeral x-ray, and right hand x-ray were ordered. The patient did receive morphine 8 mg intravenously prior to arrival. X-ray the hip reveals a right femoral neck fracture. X-ray the right humerus reveals tendinitis with calcification versus nondisplaced humeral fracture, however, patient was painful over the affected area, therefore, sling was applied. A call was placed to the on-call orthopedic surgeon. I discussed the patient with Dr. Cotto who agrees with admission to the medical service in transfer to [facility]. The patient's primary physician is Dr. Chester, [facility]. The patient will need transfer to [facility] for definitive/operative management of the right femoral neck fracture. Physician Communication Physician Communication A call was placed on the on-call orthopedist, Dr. Cotto, at 2:45 PM. I discussed the patient with Dr. Cotto who agrees with admission to the medical service in transfer to [facility]. [facility] I discussed the patient with Dr. Cordero who agrees with admission. Diagnosis Primary Impression: Displaced fracture of right femoral neck Admitting Information Admitting Physician Requests: Admit Condition: Stable Jae Rainey MD Jan 31, 2017 13:30
[2017-01-31 14:00] VITALS: BP 127/57; PULSE 107; RESP 18; TEMP 98.9; O2SAT 91
--- NOTE | 2017-01-31 14:42 | RADRPT ---
EXAM DATE/TIME: 01/31/2017 14:05 [facility] COMPARISON: CHEST SINGLE AP, December 18, 2016, 22:13. INDICATIONS : Trauma, fall MEDICAL HISTORY : Chronic obstructive pulmonary disease. Carcinoma, prostatic. SURGICAL HISTORY : None. ENCOUNTER: Initial ACUITY: 1 day PAIN SCORE: 7/10 LOCATION: Bilateral chest FINDINGS: Stable cardiomegaly with right hilar prominence. Mild interstitial prominence similar to prior exam. No significant pneumothorax or effusion. Large hiatal hernia. Bony thorax is grossly intact. CONCLUSION: No acute abnormality with stable cardiomegaly and hiatal hernia. Danilo Rodrigez MD on January 31, 2017 at 14:39 Board Certified Radiologist. This report was verified electronically.
[2017-01-31 14:46] LABS: CHLORIDE 105 MEQ/L (98-107); POTASSIUM 4.1 MEQ/L (3.5-5.1); SODIUM (NA) 140 MEQ/L (136-145)
--- NOTE | 2017-01-31 14:47 | RADRPT ---
EXAM DATE/TIME: 01/31/2017 13:51 [facility] COMPARISON: No previous studies available for comparison. INDICATIONS : Trauma, fall, right hip area pain MEDICAL HISTORY : Chronic obstructive pulmonary disease. Carcinoma, prostatic. SURGICAL HISTORY : None. ENCOUNTER: Initial ACUITY: 1 day PAIN SCORE: 10/10 LOCATION: Right hip FINDINGS: Mildly displaced right femoral neck fracture with intact alignment of the hip joint. Remaining osseou s structures are intact. Radiation seed is noted in the prostate. Degenerative changes are noted in t he lumbar spine. CONCLUSION: 1. Right femoral neck fracture, as above. Danilo Rodrigez MD on January 31, 2017 at 14:44 Board Certified Radiologist. This report was verified electronically.
--- NOTE | 2017-01-31 14:48 | RADRPT ---
EXAM DATE/TIME: 01/31/2017 14:07 [facility] COMPARISON: No previous studies available for comparison. INDICATIONS : Trauma, fall today , right humerus pain MEDICAL HISTORY : Carcinoma, prostatic. Chronic obstructive pulmonary disease. SURGICAL HISTORY : None. ENCOUNTER: Initial ACUITY: 1 day PAIN SCORE: 7/10 LOCATION: Right humerus FINDINGS: Small calcified density noted near the lateral superior humeral head likely reflecting calcific tendi nitis. Osseous structures are intact. Glenohumeral joint is grossly maintained. Degenerative changes about the a.c. joint. Visualized right lung is clear. CONCLUSION: 1. No acute fracture or significant dislocation. 2. Calcific tendinitis and degenerative osteoarthritis. Danilo Rodrigez MD on January 31, 2017 at 14:45 Board Certified Radiologist. This report was verified electronically.
--- NOTE | 2017-01-31 14:49 | RADRPT ---
EXAM DATE/TIME: 01/31/2017 14:11 [facility] COMPARISON: No previous studies available for comparison. INDICATIONS : Trauma, fall, right hand pain MEDICAL HISTORY : Carcinoma, prostatic. Chronic obstructive pulmonary disease. SURGICAL HISTORY : None. ENCOUNTER: Initial ACUITY: 1 day PAIN SCORE: 7/10 LOCATION: Right hand FINDINGS: Osseous structures appear intact without evidence for significant acute bony fracture. Advanced degen erative changes are noted about the carpometacarpal, metacarpophalangeal and proximal phalangeal join ts. Soft tissues are unremarkable. CONCLUSION: 1. No acute fracture or dislocation. 2. Advanced degenerative osteoarthritis. Danilo Rodrigez MD on January 31, 2017 at 14:47 Board Certified Radiologist. This report was verified electronically.
[2017-01-31 14:50] LABS: ANION GAP 9 MEQ/L (5-15); BICARBONATE 26.2 MEQ/L (21.0-32.0); BLOOD UREA NITROGEN 28 MG/DL (7-18)
[2017-01-31 14:52] LABS: AUTOMATED NEUTROPHIL # 13.5 TH/MM3 (1.8-7.7); BASOPHIL # 0.3 TH/MM3 (0-0.2); BASOPHIL % 1.8 % (0.0-2.0); EOSINOPHIL # 0.1 TH/MM3 (0-0.4); EOSINOPHIL % 0.5 % (0.0-4.0); HEMATOCRIT 44.6 % (39.0-51.0); LYMPH % 2.6 % (9.0-44.0); LYMPHOCYTE # 0.4 TH/MM3 (1.0-4.8); MEAN CELL VOLUME 94.5 FL (80.0-100.0); MEAN CORPUSCULAR HEMOGLOBIN 30.8 PG (27.0-34.0); MEAN CORPUSCULAR HGB CONC 32.5 % (32.0-36.0); MONO % 6.5 % (0.0-8.0); NEUT % 88.6 % (16.0-70.0); PLATELET COUNT 212 TH/MM3 (150-450); RED BLOOD COUNT 4.72 MIL/MM3 (4.50-5.90); RED CELL DISTRIBUTION WIDTH 14.3 % (11.6-17.2); WHITE BLOOD COUNT 15.3 TH/MM3 (4.0-11.0)
[2017-01-31 14:53] LABS: ALT (GPT) 22 U/L (12-78); APTT (PATIENT) 28.8 SEC (24.3-30.1); AST (GOT) 20 U/L (15-37); GLOMERULAR FILTRATION RATE 99 ML/MIN (>89); HEMO FLAGS DIFF FINAL; PROTHROMBIN TIME - PATIENT 11.3 SEC (9.8-11.6)
[2017-01-31 14:55] LABS: TOTAL BILIRUBIN ADULT 1.5 MG/DL (0.2-1.0)
[2017-01-31 14:56] LABS: ALKALINE PHOSPHATASE 77 U/L (45-117)
[2017-01-31 14:57] VITALS: RESP 18; O2SAT 93
[2017-01-31] MEDS ORDERED: mybetrig PO (15:07)
[2017-01-31] MEDS ORDERED: IPRASOL INH (15:07)
[2017-01-31] MEDS ORDERED: SPIR100T PO (15:07)
[2017-01-31] MEDS ORDERED: PRED2.5T PO (15:07)
[2017-01-31 15:10] VITALS: BP 115/57; PULSE 108; RESP 18; O2SAT 92
[2017-01-31 16:00] VITALS: BP 98/63; PULSE 85; RESP 18; O2SAT 93
[2017-01-31] MEDS ORDERED: NALOXONE HCL 0.4 MG/ML AMP IV PUSH PRN (17:45)
[2017-01-31] MEDS ORDERED: ONDANSETRON HCL 4 MG/2 ML VIAL IVP PRN (17:45)
[2017-01-31] MEDS ORDERED: ACETAMINOPHEN 325 MG TAB PO PRN (17:45)
[2017-01-31] MEDS ORDERED: BISACODYL 10 MG SUPP RECTAL PRN (17:45)
[2017-01-31] MEDS ORDERED: SODIUM CHLORIDE 0.9% FLUSH 10 ML FLUSH IV FLUSH PRN (17:45)
[2017-01-31] MEDS ORDERED: MAGNESIUM HYDROXIDE SUSP 30 ML CUP PO PRN (17:45)
[2017-01-31] MEDS ORDERED: SENNOSIDES 8.6 MG TAB PO PRN (17:45)
[2017-01-31] MEDS ORDERED: LACTULOSE SYRUP 20 GM/30 ML CUP PO PRN (17:45)
--- NOTE | 2017-01-31 17:45 | HHI.HP ---
HPI Service [facility] Hospitalists Primary Care Physician Grant Wynn M.D. Admission Diagnosis right femoral neck fracture status post mechanical fall Diagnoses: Chief Complaint: right hip pain Travel History International Travel<30 Days: No Contact w/Intl Traveler <30 Da: No Traveled to Known Affected Are: No History of Present Illness This is an 86-year-old male with extensive past medical history as detailed below who presents to [facility] after the patient sustained a fall. The patient states that he was walking his dog earlier today when the dog came around and he tripped and landed on his right side. The patient presented to [facility] complaint of right hip pain and right arm pain located over the proximal right humerus. The patient denies any head trauma or loss of consciousness. Denies neck pain after the fall or at the time of this interview. He does complain of mild chronic shortness of breath secondary to COPD for which he wears oxygen at night. Pain on right hip is worse with movement such as flexion, weightbearing but states that the pain feels better when the extremity is flexed at the knee. The patient otherwise denies any fevers, chills, chest pain, nausea, vomiting, abdominal pain or dysuria. The patient does complain of lower extremity edema, but denies any increased tenderness. The patient was given a milligrams of morphine IV by EMS prior to arrival with slight improvement of the pain. Review of Systems As per history of present illness, other systems reviewed by me and negative Past Family Social History Past Medical History arthritis asthma atrial fibrillation, only on ASA. Will not do OAC due to "stomach issues" prostate cancer, status post treatment with seed implant history of coronary artery disease status five stent placements hyperlipidemia congestive heart failure history of stroke [place] [facility] Large hiatal hernia Umbilical hernia hypertension history of spinal stenosis heart attack in 2009 COPD uses oxygen at night Testicular torsion in 1949 Past Surgical History Tonsillectomy Kidney stone removal cath and stent insertion Testicular torsion surgery prostate seeding Reported Medications Reported Meds & Active Scripts Active Bumetanide 1 Mg Tab 1 Mg PO DAILY Reported Duoneb (Ipratropium-Albuterol Neb) 0.5-2.5 Mg/3 Ml Neb 1 Nebule INH QID PRN [mybetrig] 50 Mg PO DAILY Spironolactone 100 Mg Tab 100 Mg PO DAILY Prednisone 2.5 Mg Tab 2 Mg PO DAILY Mucinex DM (Dextromethorphan-Guaifenesin) 30-600 Mg Tab 1 Tab PO BID PRN Temazepam 15 Mg Cap 15 Mg PO HS PRN Atenolol 25 Mg Tab 12.5 Mg PO DAILY Proventil Hfa 6.7 GM Inh (Albuterol Sulfate) 90 Mcg/Act Aer 2 Puff INH Q4-6H PRN Prednisone 1 Mg Tab 2 Mg PO DAILY Albuterol Neb (Albuterol Sulfate) 0.63 Mg/3 Ml Neb 0.63 Mg NEB Q4HR NEB PRN Nitrostat SL (Nitroglycerin) 0.4 Mg Subl 0.4 Mg SL DIRECTED PRN 1 tablet under the tongue as needed for chest pain. Repeat every 5 minutes for a total of 3 DOSES or call 911 if NO relief. Alprazolam 0.25 Mg Tab 0.25 Mg PO Q4H PRN Hydrocodone-Acetaminophen 10-325 mg Tab 1 Tab PO Q6H PRN Symbicort Inh (Budesonide/Formoterol Fumarate) 80-4.5 Mcg/Act Aero 2 Puff INH Q12HR Ranitidine (Ranitidine HCl) 150 Mg Cap 150 Mg PO DAILY Atorvastatin (Atorvastatin Calcium) 40 Mg Tab 40 Mg PO HS Aspir-81 (Aspirin) 81 Mg Tabdr Allergies: Coded Allergies: Sulfa (Sulfonamide Antibiotics) (Unverified Allergy, Severe, Rash, 01/31/17 ) bumetanide (Verified Allergy, Severe, Swelling, 02/05/17) ciprofloxacin (Unverified Allergy, Severe, HIVES, 01/31/17) levofloxacin (Unverified Allergy, Severe, ITCHING, 01/31/17) morphine (Unverified Allergy, Severe, PT DENIES, 01/31/17) PT STATES HE IS NOT ALLERGIC Influenza Virus Vaccines (Unverified Allergy, Intermediate, Hives, 01/31/17 ) furosemide (Unverified Allergy, Intermediate, Swelling, 01/31/17) SWELLING IN LEGS Active Ordered Medications Current Medications Medications (Trade) Dose Ordered Sig/Dominga Route Start Time Stop Time Status Last Admin Sodium Chloride 1,000 ml @ 75 mls/hr [id number] IV 01/31/17 17:35 (NS Flush) 2 ml UNSCH PRN IV FLUSH 01/31/17 17:45 (NS Flush) 2 ml BID IV FLUSH 01/31/17 21:00 (Tylenol) 650 mg Q4H PRN PO 01/31/17 17:45 (Zofran Inj) 4 mg Q6H PRN IVP 01/31/17 17:45 UNV (Heparin Inj) 5,000 units Q8H SQ 01/31/17 18:00 (Narcan Inj) 0.4 mg UNSCH PRN IV PUSH 01/31/17 17:45 UNV (Gloria-Colace) 1 tab BID PO 01/31/17 21:00 (Milk Of Magnesia Liq) 30 ml Q12H PRN PO 01/31/17 17:45 UNV (Senokot) 17.2 mg Q12H PRN PO 01/31/17 17:45 UNV (Dulcolax Supp) 10 mg DAILY PRN RECTAL 01/31/17 17:45 (Lactulose Liq) 30 ml DAILY PRN PO 01/31/17 17:45 UNV (Morphine Inj) 2 mg Q3H PRN IV PUSH 01/31/17 17:45 UNV (Morphine Inj) 4 mg ONCE ONCE IV PUSH 01/31/17 18:00 01/31/17 18:01 01/31/17 17:51 Family History Significant for coronary artery disease. Social History He drinks beer rarely and he quit cigarette smoking in 1984, smoked for 45 years. He lives at home alone. 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 SKIN: No rashes, ecchymoses or lesions. Cool and dry. HEAD: Atraumatic. Normocephalic. No temporal or scalp tenderness. EYES: Pupils equal round and reactive. Extraocular motions intact. No scleral icterus. No injection or drainage. ENT: Nose without bleeding, purulent drainage or septal hematoma. Throat without erythema, tonsillar hypertrophy or exudate. Uvula midline. Airway patent. NECK: Trachea midline. No JVD or lymphadenopathy. Supple, nontender, no meningeal signs. CARDIOVASCULAR: Regular rate and rhythm without murmurs, gallops, or rubs. RESPIRATORY: Clear to auscultation. Breath sounds equal bilaterally. No wheezes , rales, or rhonchi. GASTROINTESTINAL: Abdomen soft, non-tender, nondistended. No hepato-splenomegaly , or palpable masses. No guarding. MUSCULOSKELETAL: Extremities without clubbing, cyanosis, or edema. No joint tenderness, effusion, or edema noted. No calf tenderness. Negative Homans sign bilaterally. NEUROLOGICAL: Awake and alert. Cranial nerves II through XII intact. Motor and sensory grossly within normal limits. Five out of 5 muscle strength in all muscle groups. Normal speech. Laboratory Laboratory Tests Test 01/31/17 14:25 White Blood Count 15.3 Red Blood Count 4.72 Hemoglobin 14.5 Hematocrit 44.6 Mean Corpuscular Volume 94.5 Mean Corpuscular Hemoglobin 30.8 Mean Corpuscular Hemoglobin Concent 32.5 Red Cell Distribution Width 14.3 Platelet Count 212 Mean Platelet Volume 7.4 Neutrophils (%) (Auto) 88.6 Lymphocytes (%) (Auto) 2.6 Monocytes (%) (Auto) 6.5 Eosinophils (%) (Auto) 0.5 Basophils (%) (Auto) 1.8 Neutrophils # (Auto) 13.5 Lymphocytes # (Auto) 0.4 Monocytes # (Auto) 1.0 Eosinophils # (Auto) 0.1 Basophils # (Auto) 0.3 CBC Comment DIFF FINAL Differential Comment Prothrombin Time 11.3 Prothromb Time International Ratio 1.0 Activated Partial Thromboplast Time 28.8 Blood Urea Nitrogen 28 Creatinine 0.75 Random Glucose 98 Total Protein 6.0 Albumin 3.0 Calcium Level 8.6 Alkaline Phosphatase 77 Aspartate Amino Transf (AST/SGOT) 20 Alanine Aminotransferase (ALT/SGPT) 22 Total Bilirubin 1.5 Sodium Level 140 Potassium Level 4.1 Chloride Level 105 Carbon Dioxide Level 26.2 Anion Gap 9 Estimat Glomerular Filtration Rate 99 Result Diagram: 01/31/17 1425 01/31/17 1425 Imaging Last Impressions Hip and Pelvis X-Ray 01/31/17 1324 Signed Impressions: Service Date/Time: Tuesday, January 31, 2017 13:51 - CONCLUSION: 1. Right femoral neck fracture, as above. aDnilo Rodrigez MD Chest X-Ray 01/31/17 1324 Signed Impressions: Service Date/Time: Tuesday, January 31, 2017 14:05 - CONCLUSION: No acute abnormality with stable cardiomegaly and hiatal hernia. Danilo Rodrigez MD Humerus X-Ray 01/31/17 0000 Signed Impressions: Service Date/Time: Tuesday, January 31, 2017 14:07 - CONCLUSION: 1. No acute fracture or significant dislocation. 2. Calcific tendinitis and degenerative osteoarthritis. Danilo Rodrigez MD Hand X-Ray 01/31/17 0000 Signed Impressions: Service Date/Time: Tuesday, January 31, 2017 14:11 - CONCLUSION: 1. No acute fracture or dislocation. 2. Advanced degenerative osteoarthritis. Danilo Rodrigez MD Reviewed by me [place] VTE Risk Assessment Caprini VTE Risk Assessment: Mod/High Risk (score >= 2) VTE [facility] Contraindication: LE injury/wound Caprini Risk Assessment Model Point Value = 1 Point Value = 2 Point Value = 3 Point Value = 5 Age 41-60 Minor surgery BMI > 25 kg/m2 Swollen legs Varicose veins or History of unexplained or recurrent spontaneous Oral contraceptives or hormone replacement Sepsis (< 1 month) Serious lung disease, including pneumonia (< 1 month) Abnormal pulmonary function Acute myocardial infarction Congestive heart failure (< 1 month) History of inflammatory bowel disease Medical patient at bed rest Age 61-74 Arthroscopic surgery Major open surgery (> 45 min) Laparoscopic surgery (> 45 min) Malignancy Confined to bed (> 72 hours) Immobilizing plaster cast Central venous access Age >= 75 History of VTE Family history of VTE Factor V Leiden Prothrombin [id number] Lupus anticoagulant Anticardiolipin antibodies Elevated serum homocysteine Heparin-induced thrombocytopenia Other congenital or acquired thrombophilia Stroke (< 1 month) Elective arthroplasty Hip, pelvis, or leg fracture Acute spinal cord injury (< 1 month) Prophylaxis Regimen Total Risk Factor Score Risk Level Prophylaxis Regimen 0-1 Low Early ambulation 2 Moderate Order ONE of the following: *Sequential Compression Device (SCD) *Heparin 5000 units SQ BID 3-4 Higher Order ONE of the following medications: *Heparin 5000 units SQ TID *Enoxaparin/Lovenox 40 mg SQ daily (WT < 150 kg, CrCl > 30 mL/min) *Enoxaparin/Lovenox 30 mg SQ daily (WT < 150 kg, CrCl > 10-29 mL/min) *Enoxaparin/Lovenox 30 mg SQ BID (WT < 150 kg, CrCl > 30 mL/min) AND/OR *Sequential Compression Device (SCD) 5 or more Highest Order ONE of the following medications: *Heparin 5000 units SQ TID (Preferred with Epidurals) *Enoxaparin/Lovenox 40 mg SQ daily (WT < 150 kg, CrCl > 30 mL/min) *Enoxaparin/Lovenox 30 mg SQ daily (WT < 150 kg, CrCl > 10-29 mL/min) *Enoxaparin/Lovenox 30 mg SQ BID (WT < 150 kg, CrCl > 30 mL/min) AND *Sequential Compression Device (SCD) Assessment and Plan Problem List: (1) Displaced fracture of right femoral neck ICD Code: S72.001A - Fracture of unspecified part of neck of right femur, initial encounter for closed fracture Status: Acute (2) Leukocytosis ICD Code: D72.829 - Elevated white blood cell count, unspecified (3) COPD (chronic obstructive pulmonary disease) ICD Code: J44.9 - Chronic obstructive pulmonary disease, unspecified Status: Chronic (4) Afib ICD Code: I48.91 - Unspecified atrial fibrillation Status: Chronic (5) Coronary artery disease ICD Code: I25.10 - Coronary artery disease Status: Chronic Assessment and Plan Admit the patient to the medical floor ED physician contacted Dr. Cotto from orthopedic surgery who recommended nothing by mouth after midnight for possible surgical repair. Will provide pain control with IV morphine. Hold aspirin, continue atenolol, hold the spironolactone and bumetanide for dehydration Patient not on COPD exacerbation, continue oxygen to keep oxygen saturation more than 92% Continue DuoNeb's 4 times a day as needed for shortness of breath and wheezing, continue albuterol. Continue Symbicort Nothing by mouth after midnight EKG reviewed by me showed sinus tachycardia, with some ST depression in the lateral leads. I will check cardiac enzymes. If cardiac enzymes negative and EKG remains unchanged then can proceed with surgical repair of hip fracture Will place on PPI for GI prophylaxis NO chemoprophylaxis for now, will need chemoprophylaxis after surgical procedure. Physician Certification 2 Midnight Certification Type: Admission for Inpatient Services Order for Inpatient Services The services are ordered in accordance with Medicare regulations or non- Medicare payer requirements, as applicable. In the case of services not specified as inpatient-only, they are appropriately provided as inpatient services in accordance with the 2-midnight benchmark. Estimated LOS (days): 2 days is the estimated time the patient will need to remain in the hospital, assuming treatment plan goals are met and no additional complications. Post-Hospital Plan: Not yet determined Problem Qualifiers (1) Afib: Qualified Codes: I48.0 - Paroxysmal atrial fibrillation Cecilio Padilla MD Jan 31, 2017 17:45
[2017-01-31] MEDS ORDERED: HEPARIN SODIUM - SQ 10,000 UNITS/ML VIAL SQ SCH (18:00)
[2017-01-31] MEDS ORDERED: MORPHINE SULFATE 4 MG/ML INJ IV PUSH ONE (18:00)
[2017-01-31 18:15] VITALS: BP 109/50
[2017-01-31 20:00] VITALS: BP 116/58; PULSE 99; RESP 20; TEMP 98.1; O2SAT 94
[2017-01-31] MEDS: DOCUSATE SODIUM 50 MG/SENNA 8.6 MG TAB PO SCH (21:00)
[2017-01-31] MEDS: MORPHINE SULFATE 4 MG/ML INJ IV PUSH PRN (21:17)
[2017-01-31] MEDS: SODIUM CHLORIDE 0.9% FLUSH 10 ML FLUSH IV FLUSH SCH (21:18)
[2017-01-31] MEDS: SODIUM CHLOR 0.45% 1000 ML INJ 1,000 ML IV SCH (21:30)
[2017-02-01] VITALS: BP 133/58; PULSE 97; RESP 18; TEMP 97.8; O2SAT 93
[2017-02-01] MEDS: MORPHINE SULFATE 4 MG/ML INJ IV PUSH PRN ×2 (00:25→06:25)
[2017-02-01] MEDS: SODIUM CHLOR 0.45% 1000 ML INJ 1,000 ML IV SCH ×2 (06:55→12:35)
[2017-02-01 07:33] LABS: AUTOMATED NEUTROPHIL # 8.8 TH/MM3 (1.8-7.7); BASOPHIL # 0.1 TH/MM3 (0-0.2); BASOPHIL % 0.7 % (0.0-2.0); EOSINOPHIL # 0.5 TH/MM3 (0-0.4); EOSINOPHIL % 4.7 % (0.0-4.0); HEMATOCRIT 41.3 % (39.0-51.0); HEMO FLAGS DIFF FINAL; LYMPH % 4.7 % (9.0-44.0); LYMPHOCYTE # 0.5 TH/MM3 (1.0-4.8); MEAN CELL VOLUME 95.4 FL (80.0-100.0); MEAN CORPUSCULAR HEMOGLOBIN 31.5 PG (27.0-34.0); MEAN CORPUSCULAR HGB CONC 33.1 % (32.0-36.0); NEUT % 79.9 % (16.0-70.0); PLATELET COUNT 191 TH/MM3 (150-450); RED BLOOD COUNT 4.33 MIL/MM3 (4.50-5.90); RED CELL DISTRIBUTION WIDTH 14.3 % (11.6-17.2); WHITE BLOOD COUNT 11.1 TH/MM3 (4.0-11.0)
[2017-02-01 07:42] LABS: ANION GAP 8 MEQ/L (5-15); AST (GOT) 33 U/L (15-37); BICARBONATE 22.3 MEQ/L (21.0-32.0); BLOOD UREA NITROGEN 28 MG/DL (7-18); CHLORIDE 107 MEQ/L (98-107); GLOMERULAR FILTRATION RATE 81 ML/MIN (>89); POTASSIUM 5.1 MEQ/L (3.5-5.1); SODIUM (NA) 137 MEQ/L (136-145)
[2017-02-01 07:43] LABS: ALT (GPT) 24 U/L (12-78)
[2017-02-01 07:45] LABS: ALKALINE PHOSPHATASE 74 U/L (45-117); TOTAL BILIRUBIN ADULT 1.5 MG/DL (0.2-1.0)
[2017-02-01 08:00] VITALS: BP 135/62; PULSE 92; RESP 18; TEMP 98.3; O2SAT 97
--- NOTE | 2017-02-01 08:50 | MB ---
cc: ANTHONY WILEY M.D. DATE OF CONSULTATION: 02/01/2017 REASON FOR CONSULTATION Right hip fracture, right shoulder injury. HISTORY OF PRESENT ILLNESS 86-year-old male who presented to [facility] after a fall. He states he is a limited household ambulator with the assistance of a walker. He has severe COPD which is oxygen dependent. He tripped over his dog yesterday landing on the right side. He complains of right shoulder pain, severe right hip pain, denies hitting his head or loss of consciousness. He does have chronic shortness of breath with COPD and is oxygen dependent at home. His hip pain was severe with worsening symptoms with any movement, he could not stand or bear weight, the onset of pain, throbbing, aching sensation of the right shoulder with some radiation into the arm. No numbness, tingling. No chest pain, no referred symptoms otherwise noted. He has chronic bilateral lower extremity edema. PAST MEDICAL HISTORY 1. Positive for osteoarthritis. 2. Asthma. 3. COPD, oxygen dependent. 4. Atrial fibrillation on aspirin. 5. Prostate cancer. 6. History of radiation seed placement. 7. History of heart disease. 8. History of PTCA stenting. 9. Hyperlipidemia. 10. Congestive heart failure. 11. Stroke. 12. Gastric reflux. 13. Hernia. 14. Hypertension. 15. Spinal stenosis. 16. History of testicular torsion as a child. 17. History of tonsillectomy. 18. Kidney stone removal. MEDICATIONS Include: 1. Bumex. 2. DuoNeb. 3. Spironolactone. 4. Prednisone. 5. Mucinex. 6. Temazepam. 7. Atenolol. 8. Proventil. 9. Nitrostat. 10. Xanax. 11. Hydrocodone. 12. Symbicort. 13. Atorvastatin. 14. Aspirin. ALLERGIES SULFA, CIPRO, LEVAQUIN, MORPHINE, INFLUENZA VACCINE AND LASIX. FAMILY HISTORY Positive for heart disease. SOCIAL HISTORY He states he occasionally drinks alcohol. He has greater than 40 pack year history of smoking but stopped smoking in 1984. 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 He is recently , his in 2016. PHYSICAL EXAMINATION VITAL SIGNS: Temperature is 98.9, pulse 100, respirations 18, blood pressure 127/57. GENERAL: The patient is a well-nourished male, lying in bed awake, alert, in no acute distress. HEENT: Normocephalic, atraumatic. Pupils are round, reactive to light. Extraocular muscles are intact. NECK: Neck is supple. LUNGS: Clear. HEART: S1, S2. ABDOMEN: Soft, nontender. He is currently on 2 liters of nasal cannula oxygen. EXTREMITIES: He has pain with passive motion of the right hip. He can flex his ankle and toes distally. He also has swelling and tenderness to palpation of the right shoulder, pain with active and passive motion to the right shoulder with limitation of motion. LABORATORY DATA White blood cell count 15.3, hemoglobin is 14, hematocrit 44, platelets 212, BUN 28, creatinine 0.75, glucose 98. IMAGING STUDIES AP pelvis, AP lateral right hip shows a right displaced femoral neck fracture. X-rays of the right shoulder shows osteoarthritis and calcific tendinosis, no fracture seen. IMPRESSION A 86-year-old male status post fall, right displaced femoral neck fracture, right shoulder contusion, arthritis, possible rotator cuff tear. He also has history of heart disease, COPD, oxygen dependent. PLAN I discussed the diagnosis and treatment options in regards to the right hip. We spoke about the option of nonoperative treatment versus surgery, this consists of a bipolar hemiarthroplasty hip replacement surgery. The risks of surgery were discussed which include but not limited to anesthesia, bleeding, infection, damage to nerves and blood vessels, fracture-dislocation, leg length discrepancy, blood clot, pulmonary embolism and even . The patient's pain is severe. He favored the benefits over the risks, he does wish to proceed with surgery. Written consent has been obtained and surgical site has been marked. We will proceed with surgery accordingly. In regards to the right shoulder, at this point I recommend gentle range of motion exercise and activities, at some point we may consider further workup to include MRI imaging if symptoms persist. MD SERA Castro/JUVENAL /8:16 AM /8:26 AM
[2017-02-01] MEDS: SODIUM CHLORIDE 0.9% FLUSH 10 ML FLUSH IV FLUSH SCH (09:00)
[2017-02-01] MEDS: DOCUSATE SODIUM 50 MG/SENNA 8.6 MG TAB PO SCH ×2 (09:00→21:52)
[2017-02-01] MEDS ORDERED: HYDR-3288 PO (10:27)
[2017-02-01] MEDS ORDERED: ENOX40P SQ (10:28)
[2017-02-01] MEDS ORDERED: ASPI81CH37 CHEW (10:28)
[2017-02-01] MEDS ORDERED: diphenhydrAMINE HCL 50 MG/ML VIAL IV PRN (10:30)
[2017-02-01] MEDS ORDERED: SODIUM CHLORIDE 0.9% FLUSH 5 ML FLUSH IVF PRN (10:30)
[2017-02-01] MEDS ORDERED: ZOLPIDEM TARTRATE 5 MG TAB PO PRN (10:30)
[2017-02-01] MEDS ORDERED: ACETAMINOPHEN/HYDROcodone 325 MG/10 MG TAB PO PRN (10:30)
[2017-02-01] MEDS ORDERED: ONDANSETRON HCL 4 MG/2 ML VIAL IVP PRN (10:30)
[2017-02-01] MEDS ORDERED: BISACODYL 10 MG SUPP RECTAL PRN (10:30)
[2017-02-01] MEDS ORDERED: Post-op Orders (for Pharmacy) MISC XX ONE (10:30)
[2017-02-01] MEDS ORDERED: ceFAZolin 2 GM PREMIX 50 ML ONE (10:35)
[2017-02-01] MEDS ORDERED: GENTAMICIN SULFATE 80 MG/2 ML VIAL ONE (10:35)
[2017-02-01] MEDS ORDERED: VANCOMYCIN HCL 1000 MG VIAL ONE (10:35)
[2017-02-01] MEDS ORDERED: TRANEXAMIC ACID INJ 1,000 MG/10 ML AMP ONE (10:37)
[2017-02-01] MEDS ORDERED: DO NOT ADM ANY ANTICOAGULANT DRUGS PRN (11:56)
[2017-02-01] MEDS ORDERED: ROCURONIUM INJ 50 MG/5 ML SYRINGE IV PUSH ONE (12:00)
[2017-02-01] MEDS ORDERED: GLYCOPYRROLATE 0.2 MG/ML VIAL IV ONE (12:00)
[2017-02-01] MEDS ORDERED: LIDOCAINE HCL 1% PF 5 ML AMPULE OTHER ONE (12:00)
[2017-02-01] MEDS ORDERED: PROPOFOL 200 MG/20 ML AMP IV ONE (12:00)
[2017-02-01] MEDS ORDERED: ONDANSETRON HCL 4 MG/2 ML VIAL IV PUSH ONE (12:00)
[2017-02-01] MEDS ORDERED: PHENYLEPH/NS 1000 MCG/10 ML SYR IV ONE (12:00)
[2017-02-01] MEDS ORDERED: NEOSTIGMINE 3 MG/3 ML SYR IV ONE (12:00)
[2017-02-01] MEDS ORDERED: LABETALOL HCL 100 MG/20 ML VIAL IV ONE (12:00)
[2017-02-01] MEDS ORDERED: *HYDROmorphone PF 1 MG VIAL PERIprocedural Use ONLY ONE ×2 (12:06→12:39)
[2017-02-01] MEDS ORDERED: *RESP: ALBUTEROL 2.5 MG/3 ML NEB (PRN) PERIprocedural Use ONLY NEB ONE (12:07)
[2017-02-01] MEDS ORDERED: *MEPERIDINE 25 MG INJ VIAL PERIprocedural Use ONLY ONE (12:20)
[2017-02-01] MEDS: SODIUM CHLOR 0.9% 1000 ML INJ 1,000 ML IV SCH (12:34)
--- NOTE | 2017-02-01 12:58 | EKG ---
Date Performed: 01/31/2017 Time Performed: 13:38:41 PTAGE: 86 years EKG: SINUS TACHYCARDIA POSSIBLE INFERIOR MYOCARDIAL INFARCTION ABNORMAL ECG PREVIOUS TRACING : 12/20/2016 08.48 No significant change from previous tracing noted. DOCTOR: Bairon Constantino Interpretating Date/Time 02/01/2017 12:57:17
--- NOTE | 2017-02-01 13:08 | RADRPT ---
EXAM DATE/TIME: 02/01/2017 12:28 [place] COMPARISON: HIP RIGHT (AP&LAT 2/3VWS) W AP PELVIS, January 31, 2017, 13:51. INDICATIONS : Right hip replacement MEDICAL HISTORY : Chronic obstructive pulmonary disease. Carcinoma, prostatic SURGICAL HISTORY : Right total hip replacement ENCOUNTER: Subsequent ACUITY: 2 days PAIN SCORE: Non-responsive. LOCATION: Right Hip FINDINGS: There is a bipolar hip prosthesis on the right. This is well placed. Skin kimberlyn are seen laterally. Prostate radiation seeds are present. CONCLUSION: Good placement of a bipolar hip prosthesis on the right. Yosvany Esquivel MD on February 01, 2017 at 13:04 Board Certified Radiologist. This report was verified electronically.
[2017-02-01 13:45] VITALS: BP 106/61; PULSE 85; RESP 17; TEMP 98.1; O2SAT 91
[2017-02-01] MEDS ORDERED: TRANEXAMIC ACID IV ONE (13:48)
[2017-02-01] MEDS ORDERED: SODIUM CHLORIDE 0.9% IV ONE (13:48)
[2017-02-01 15:56] VITALS: O2SAT 91
[2017-02-01 16:00] VITALS: BP 102/42; PULSE 85; RESP 17; TEMP 97.3; O2SAT 97
--- NOTE | 2017-02-01 16:21 | HHI.PR ---
Subjective Remarks Follow up right femoral neck fracture. Patient seen and examined post operatively, he awakens to voice, following all commands. Speech is garbled post anesthesia. Does state name, year and place. Pain is well controlled at this time. Currently on 2LNC. Afebrile. VSS. Objective Vitals Vital Signs Date Time Temp Pulse Resp B/P (MAP) Pulse Ox O2 Delivery O2 Flow Rate FiO2 02/01/17 15:56 91 Nasal Cannula 4.00 02/01/17 13:31 83 19 111/60 (77) 91 Nasal Cannula 4 02/01/17 12:45 84 19 117/63 (81) 91 Nasal Cannula 4 02/01/17 12:30 91 19 134/72 (92) 94 Nasal Cannula 4 02/01/17 12:15 97 19 128/69 (88) 91 Nasal Cannula 4 02/01/17 12:01 97.6 88 19 122/69 (86) 91 Nasal Cannula 4 02/01/17 08:00 98.3 92 18 135/62 (86) 97 02/01/17 00:00 97.8 97 18 133/58 (83) 93 01/31/17 20:00 98.1 99 20 116/58 (77) 94 01/31/17 18:15 102 16 109/50 (69) 94 Nasal Cannula 3.00 01/31/17 17:35 100 18 93 Nasal Cannula 3.00 01/31/17 16:38 84 18 93 Nasal Cannula 3.00 I/O 01/31/17 01/31/17 01/31/17 02/01/17 02/01/17 02/01/17 07:00 15:00 23:00 07:00 15:00 23:00 Intake Total 120 ml 600 ml Output Total 700 ml Balance -580 ml 600 ml Intake Oral 120 ml IV Total 600 ml Output Urine Total 700 ml # Bowel Movements 0 Result Diagram: 02/01/17 0545 02/01/17 0545 Imaging Last Impressions Hip and Pelvis X-Ray 02/01/17 0000 Signed Impressions: Service Date/Time: Wednesday, February 01, 2017 12:28 - CONCLUSION: Good placement of a bipolar hip prosthesis on the right. Yosvany Esquivel MD Chest X-Ray 01/31/17 1324 Signed Impressions: Service Date/Time: Tuesday, January 31, 2017 14:05 - CONCLUSION: No acute abnormality with stable cardiomegaly and hiatal hernia. Danilo Rodrigez MD Humerus X-Ray 01/31/17 0000 Signed Impressions: Service Date/Time: Tuesday, January 31, 2017 14:07 - CONCLUSION: 1. No acute fracture or significant dislocation. 2. Calcific tendinitis and degenerative osteoarthritis. Danilo Rodrigez MD Hand X-Ray 01/31/17 0000 Signed Impressions: Service Date/Time: Tuesday, January 31, 2017 14:11 - CONCLUSION: 1. No acute fracture or dislocation. 2. Advanced degenerative osteoarthritis. Danilo Rodrigez MD Objective Remarks GENERAL: Well-nourished, well-developed male patient, lying in bed on 2 L NC in no apparent distress. Post op post anesthesia. SKIN: Warm and dry. No rash. Right hip dressing in place, d/d/i. HEAD: Normocephalic. PERRL. EYES: No scleral icterus. No injection or drainage. NECK: Supple, trachea midline. No JVD or lymphadenopathy. CARDIOVASCULAR: Regular rate and rhythm without murmurs, gallops, or rubs. S1 and S2 present. RESPIRATORY: Breath sounds equal bilaterally. No accessory muscle use. Clear to auscultation. GASTROINTESTINAL: Abdomen soft, non-tender, nondistended. Hypoactive bs x 4 q. EXTREMITIES: No cyanosis, or edema. SCDs in place. Warm to touch. DP and pedal pulses present 2+. NEUROLOGICAL: Awake, alert, and oriented x 3. Follows commands. Muscle strength in bilateral upper and lower extremities. A/P Problem List: (1) Displaced fracture of right femoral neck ICD Code: S72.001A - Fracture of unspecified part of neck of right femur, initial encounter for closed fracture Status: Acute (2) Leukocytosis ICD Code: D72.829 - Elevated white blood cell count, unspecified (3) COPD (chronic obstructive pulmonary disease) ICD Code: J44.9 - Chronic obstructive pulmonary disease, unspecified Status: Chronic (4) Afib ICD Code: I48.91 - Unspecified atrial fibrillation Status: Chronic (5) Coronary artery disease ICD Code: I25.10 - Coronary artery disease Status: Acute Assessment and Plan Mr. Martinez is an 86-year-old male with extensive past medical history as detailed below who presents to [facility] after the patient sustained a fall. The patient states that he was walking his dog earlier today when the dog came around and he tripped and landed on his right side. Status post right hip replacement secondary to fall - Management per orthopedic surgeon. - Hip/pelvis x-ray reviewed showing good placement of a bipolar hip prosthesis on the right. - Control pain, Dilaudid IV PRN per pain scale. [place] PO available per PAIN scale. Chronic obstructive pulmonary disease - Continue oxygen to keep oxygen saturation more than 92%. - Continue Duonebs PRN wheezing. - Continue home albuterol inhaler and Symbicort. Hypertension, chronic: Will restart home BP medications. Monitor BP closely. Controlled at this time. DVT prophylaxis: SCDs/Lovenox, management per orthopedic team. Problem Qualifiers (1) Afib: Qualified Codes: I48.0 - Paroxysmal atrial fibrillation Merced Nunez Feb 01, 2017 16:21
[2017-02-01] MEDS ORDERED: DEXTROMETHORPHAN GUAIFENESIN PO PRN (17:30)
[2017-02-01] MEDS ORDERED: ALBUTEROL SULFATE 90 MCG/ACT HFA 8 GM INHALER INH PRN (17:30)
[2017-02-01] MEDS ORDERED: RESP: ALBUTEROL 2.5 MG/IPRATROPIUM 0.5 MG NEB (PRN) INH (17:30)
[2017-02-01] MEDS ORDERED: MIRA50TA PO (19:03)
[2017-02-01 20:56] VITALS: BP 113/50; PULSE 93; RESP 17; TEMP 99.2; O2SAT 96
[2017-02-01] MEDS: SODIUM CHLORIDE 0.9% FLUSH 5 ML FLUSH IVF SCH (21:00)
[2017-02-01] MEDS: ATORVASTATIN 40 MG TAB PO SCH (21:52)
[2017-02-01] MEDS: BUDESONIDE-FORMOTEROL 80/4.5 MCG INHALER INH SCH (21:53)
[2017-02-01] MEDS: ACETAMINOPHEN/HYDROcodone 325 MG/10 MG TAB PO PRN (21:56)
[2017-02-02] VITALS (7 sets, daily range): BP systolic 90–126; BP diastolic 51–74; PULSE 90–96; RESP 17–19; TEMP 98.7–100.2; O2SAT 92–96
[2017-02-02] MEDS: HYDROmorphone HCL PF 2 MG/ML VIAL IV PRN (03:26)
[2017-02-02] MEDS: SODIUM CHLOR 0.9% 1000 ML INJ 1,000 ML IV SCH ×3 (05:18→17:02)
[2017-02-02 08:05] LABS: HEMATOCRIT 37.7 % (39.0-51.0); MEAN CELL VOLUME 95.9 FL (80.0-100.0); MEAN CORPUSCULAR HEMOGLOBIN 30.7 PG (27.0-34.0); MEAN CORPUSCULAR HGB CONC 32.1 % (32.0-36.0); PLATELET COUNT 161 TH/MM3 (150-450); RED BLOOD COUNT 3.93 MIL/MM3 (4.50-5.90); RED CELL DISTRIBUTION WIDTH 14.1 % (11.6-17.2); REVIEW FLAG FINAL; WHITE BLOOD COUNT 14.7 TH/MM3 (4.0-11.0)
[2017-02-02 08:27] LABS: BICARBONATE 26.5 MEQ/L (21.0-32.0); POTASSIUM 4.5 MEQ/L (3.5-5.1)
[2017-02-02] MEDS: SPIRONOLACTONE 100 MG TAB PO SCH (09:00)
[2017-02-02] MEDS: BUMETANIDE 1 MG TAB PO SCH (09:00)
[2017-02-02] MEDS: SODIUM CHLORIDE 0.9% FLUSH 5 ML FLUSH IVF SCH ×2 (09:00→20:20)
[2017-02-02] MEDS: DOCUSATE SODIUM 50 MG/SENNA 8.6 MG TAB PO SCH ×2 (09:42→20:19)
[2017-02-02] MEDS: ATENOLOL 25 MG TAB PO SCH (09:42)
[2017-02-02] MEDS: BUDESONIDE-FORMOTEROL 80/4.5 MCG INHALER INH SCH ×2 (09:43→20:20)
[2017-02-02] MEDS: ACETAMINOPHEN/HYDROcodone 325 MG/10 MG TAB PO PRN ×2 (09:52→17:50)
[2017-02-02] MEDS: ENOXAPARIN SODIUM 40 MG/0.4 ML SYRINGE SQ SCH (12:00)
--- NOTE | 2017-02-02 13:22 | PD.ORT.PN ---
Subjective Post Op Day #: 1 Subjective Remarks painful, improving. Objective Vitals Vital Signs Date Time Temp Pulse Resp B/P (MAP) Pulse Ox O2 Delivery O2 Flow Rate FiO2 02/02/17 12:00 98.7 90 18 119/74 (89) 96 02/02/17 10:52 18 02/02/17 08:00 99.8 93 19 126/72 (90) 95 02/02/17 04:07 98.8 96 17 108/54 (72) 94 02/02/17 03:56 18 02/02/17 00:55 98.9 95 17 100/51 (67) 94 02/01/17 20:56 99.2 93 17 113/50 (71) 96 02/01/17 20:29 Nasal Cannula 4.00 02/01/17 16:00 97.3 85 17 102/42 (62) 97 02/01/17 15:56 91 Nasal Cannula 4.00 02/01/17 13:45 98.1 85 17 106/61 (76) 91 02/01/17 13:31 83 19 111/60 (77) 91 Nasal Cannula 4 I/O 02/01/17 02/01/17 02/01/17 02/02/17 02/02/17 02/02/17 07:00 15:00 23:00 07:00 15:00 23:00 Intake Total 120 ml 600 ml 240 ml 220 ml Output Total 700 ml 550 ml 300 ml Balance -580 ml 600 ml -310 ml -80 ml Intake Oral 120 ml 240 ml 120 ml IV Total 600 ml 100 ml Output Urine Total 700 ml 550 ml 300 ml # Bowel Movements 0 0 0 Result Diagram: 02/02/1743 02/02/17 0743 Objective Remarks in chair eating, nad dressing c/d/i neg homans dressings bilat LE - sees wound care nvi Assessment & Plan Ortho Post Op Day #: 1 Problem List: Assessment and Plan s/p R Bipolar POD#1 wbat posterior hip precautions daily dressing changes lovenox d/c planning f/up dr. tai 2 weeks Maury Horan Feb 02, 2017 13:22
--- NOTE | 2017-02-02 13:31 | HHI.PR ---
Subjective Remarks Follow up right femoral neck fracture. Patient seen and examined, sitting up in chair. States he could not sleep well, pain terrible overnight. Patient says it is much better today. Participating in therapy. Tolerating PO intake, denies any nausea or vomiting. TMAX 99.8 overnight. Denies any shortness of breath, chest pain. Objective Vitals Vital Signs Date Time Temp Pulse Resp B/P (MAP) Pulse Ox O2 Delivery O2 Flow Rate FiO2 02/02/17 12:00 98.7 90 18 119/74 (89) 96 02/02/17 10:52 18 02/02/17 08:00 99.8 93 19 126/72 (90) 95 02/02/17 04:07 98.8 96 17 108/54 (72) 94 02/02/17 03:56 18 02/02/17 00:55 98.9 95 17 100/51 (67) 94 02/01/17 20:56 99.2 93 17 113/50 (71) 96 02/01/17 20:29 Nasal Cannula 4.00 02/01/17 16:00 97.3 85 17 102/42 (62) 97 02/01/17 15:56 91 Nasal Cannula 4.00 02/01/17 13:45 98.1 85 17 106/61 (76) 91 02/01/17 13:31 83 19 111/60 (77) 91 Nasal Cannula 4 I/O 02/01/17 02/01/17 02/01/17 02/02/17 02/02/17 02/02/17 07:00 15:00 23:00 07:00 15:00 23:00 Intake Total 120 ml 600 ml 240 ml 220 ml Output Total 700 ml 550 ml 300 ml Balance -580 ml 600 ml -310 ml -80 ml Intake Oral 120 ml 240 ml 120 ml IV Total 600 ml 100 ml Output Urine Total 700 ml 550 ml 300 ml # Bowel Movements 0 0 0 Result Diagram: 02/02/17 0743 02/02/17 0743 Imaging Last Impressions Hip and Pelvis X-Ray 02/01/17 0000 Signed Impressions: Service Date/Time: Wednesday, February 01, 2017 12:28 - CONCLUSION: Good placement of a bipolar hip prosthesis on the right. Yosvany Esquivel MD Chest X-Ray 01/31/17 1324 Signed Impressions: Service Date/Time: Tuesday, January 31, 2017 14:05 - CONCLUSION: No acute abnormality with stable cardiomegaly and hiatal hernia. Danilo Rodrigez MD Humerus X-Ray 01/31/17 0000 Signed Impressions: Service Date/Time: Tuesday, January 31, 2017 14:07 - CONCLUSION: 1. No acute fracture or significant dislocation. 2. Calcific tendinitis and degenerative osteoarthritis. Danilo Rodrigez MD Hand X-Ray 01/31/17 0000 Signed Impressions: Service Date/Time: Tuesday, January 31, 2017 14:11 - CONCLUSION: 1. No acute fracture or dislocation. 2. Advanced degenerative osteoarthritis. Danilo Rodrigez MD Objective Remarks GENERAL: Well-nourished, well-developed male patient, on 2 L NC in no apparent distress. SKIN: Warm and dry. No rash. Right hip dressing in place, d/d/i. Bilateral lower extremity dressing intact, c/d. HEAD: Normocephalic. PERRL. EYES: No scleral icterus. No injection or drainage. NECK: Supple, trachea midline. No JVD or lymphadenopathy. CARDIOVASCULAR: Regular rate and rhythm without murmurs, gallops, or rubs. S1 and S2 present. RESPIRATORY: Breath sounds equal bilaterally. No accessory muscle use. Clear to auscultation. GASTROINTESTINAL: Abdomen soft, non-tender, nondistended. Hypoactive bs x 4 q. EXTREMITIES: No cyanosis, or edema. SCDs in place. Warm to touch. DP and pedal pulses present 2+. NEUROLOGICAL: Awake, alert, and oriented x 3. Follows commands. Muscle strength in bilateral upper and lower extremities. A/P Problem List: (1) Displaced fracture of right femoral neck ICD Code: S72.001A - Fracture of unspecified part of neck of right femur, initial encounter for closed fracture Status: Acute (2) Leukocytosis ICD Code: D72.829 - Elevated white blood cell count, unspecified (3) COPD (chronic obstructive pulmonary disease) ICD Code: J44.9 - Chronic obstructive pulmonary disease, unspecified Status: Chronic (4) Afib ICD Code: I48.91 - Unspecified atrial fibrillation Status: Chronic (5) Coronary artery disease ICD Code: I25.10 - Coronary artery disease Status: Acute Assessment and Plan Mr. Martinez is an 86-year-old male with extensive past medical history as detailed below who presents to [facility] after the patient sustained a fall. The patient states that he was walking his dog earlier today when the dog came around and he tripped and landed on his right side. Status post right hip replacement secondary to fall - Management per orthopedic surgeon. - Hip/pelvis x-ray reviewed showing good placement of a bipolar hip prosthesis on the right. - Control pain, Dilaudid IV PRN per pain scale. [place] PO available per PAIN scale. - Continue PT/OT. - Lowe catheter still in place. Patient wants to work with PT all day and regain strength, agreeable to removable tomorrow am. Chronic obstructive pulmonary disease - Continue oxygen to keep oxygen saturation more than 92%. - Continue Duonebs PRN wheezing. - Continue home albuterol inhaler and Symbicort. Hypertension, chronic: Continue home BP meds. Monitor BP closely. Controlled at this time. DVT prophylaxis: SCDs/Lovenox, management per orthopedic team. Problem Qualifiers (1) Afib: Qualified Codes: I48.0 - Paroxysmal atrial fibrillation Merced Nunez Feb 02, 2017 13:31
[2017-02-02] MEDS: DOCUSATE SODIUM 100 MG CAP PO SCH (20:20)
[2017-02-02] MEDS: MULTIVITAMINS/MINERALS THERAPEUTIC TAB PO SCH (20:20)
[2017-02-02] MEDS: ATORVASTATIN 40 MG TAB PO SCH (20:20)
[2017-02-03 00:06] VITALS: BP 108/54; PULSE 79; RESP 18; TEMP 98.3; O2SAT 95
[2017-02-03] MEDS: ACETAMINOPHEN/HYDROcodone 325 MG/10 MG TAB PO PRN ×2 (02:40→13:35)
[2017-02-03] MEDS: HYDROmorphone HCL PF 2 MG/ML VIAL IV PRN (03:20)
[2017-02-03] MEDS: SODIUM CHLOR 0.9% 1000 ML INJ 1,000 ML IV SCH ×2 (04:00→14:00)
[2017-02-03 08:13] VITALS: BP 95/48; PULSE 74; RESP 17; TEMP 97.9; O2SAT 95
[2017-02-03 08:25] LABS: HEMATOCRIT 36.1 % (39.0-51.0); MEAN CELL VOLUME 97.1 FL (80.0-100.0); MEAN CORPUSCULAR HEMOGLOBIN 31.1 PG (27.0-34.0); PLATELET COUNT 156 TH/MM3 (150-450); RED BLOOD COUNT 3.71 MIL/MM3 (4.50-5.90); RED CELL DISTRIBUTION WIDTH 14.6 % (11.6-17.2); REVIEW FLAG FINAL
[2017-02-03] MEDS: ATENOLOL 25 MG TAB PO SCH (08:32)
[2017-02-03] MEDS: DOCUSATE SODIUM 100 MG CAP PO SCH (08:32)
[2017-02-03] MEDS: MULTIVITAMINS/MINERALS THERAPEUTIC TAB PO SCH (08:32)
[2017-02-03] MEDS: BUMETANIDE 1 MG TAB PO SCH (08:33)
[2017-02-03] MEDS: DOCUSATE SODIUM 50 MG/SENNA 8.6 MG TAB PO SCH (08:33)
[2017-02-03] MEDS: BUDESONIDE-FORMOTEROL 80/4.5 MCG INHALER INH SCH (08:33)
[2017-02-03] MEDS: SPIRONOLACTONE 100 MG TAB PO SCH (08:33)
[2017-02-03] MEDS: SODIUM CHLORIDE 0.9% FLUSH 5 ML FLUSH IVF SCH (08:35)
[2017-02-03 08:57] LABS: BICARBONATE 27.4 MEQ/L (21.0-32.0); POTASSIUM 4.2 MEQ/L (3.5-5.1)
--- NOTE | 2017-02-03 09:12 | PD.ORT.PN ---
Subjective Post Op Day #: 2 Subjective Remarks doing better. family in room. Objective Vitals Vital Signs Date Time Temp Pulse Resp B/P (MAP) Pulse Ox O2 Delivery O2 Flow Rate FiO2 02/03/17 08:13 97.9 74 17 95/48 (64) 95 02/03/17 00:06 98.3 79 18 108/54 (72) 95 02/02/17 20:59 100.2 94 18 90/53 (65) 94 02/02/17 20:38 92 Nasal Cannula 4.00 02/02/17 18:50 18 02/02/17 16:00 99.8 91 17 107/58 (74) 96 02/02/17 12:00 98.7 90 18 119/74 (89) 96 I/O 02/02/17 02/02/17 02/02/17 02/03/17 02/03/17 02/03/17 07:00 15:00 23:00 07:00 15:00 23:00 Intake Total 220 ml 120 ml 120 ml Output Total 300 ml 250 ml 375 ml Balance -80 ml -130 ml -255 ml Intake Oral 120 ml 120 ml 120 ml IV Total 100 ml Output Urine Total 300 ml 250 ml 375 ml # Voids 0 # Bowel Movements 0 0 Result Diagram: 02/03/17 0740 02/03/17 0740 Objective Remarks in bed, nad dressing c/d/i neg homans dressings bilat LE - sees wound care nvi Assessment & Plan Ortho Post Op Day #: 2 Problem List: Assessment and Plan s/p R Bipolar POD#2 wbat posterior hip precautions daily dressing changes lovenox d/c planning ortho stable f/up dr. tai 2 weeks Maury Horan Feb 03, 2017 09:12
--- NOTE | 2017-02-03 10:05 | HHI.DS ---
Discharge Summary Admission Date Jan 31, 2017 at 15:10 Discharge Date: Feb 03, 2017 Admitting Diagnosis right femoral neck fracture status post mechanical fall (1) Displaced fracture of right femoral neck ICD Code: S72.001A - Fracture of unspecified part of neck of right femur, initial encounter for closed fracture Status: Acute (2) Leukocytosis ICD Code: D72.829 - Elevated white blood cell count, unspecified (3) COPD (chronic obstructive pulmonary disease) ICD Code: J44.9 - Chronic obstructive pulmonary disease, unspecified Status: Chronic (4) Afib ICD Code: I48.91 - Unspecified atrial fibrillation Status: Chronic (5) Coronary artery disease ICD Code: I25.10 - Coronary artery disease Status: Acute Procedures Right hip fracture repair Brief History - From Admission History of present illness from the admitting physician This is an 86-year-old male with extensive past medical history as detailed below who presents to [facility] after the patient sustained a fall. The patient states that he was walking his dog earlier today when the dog came around and he tripped and landed on his right side. The patient presented to [facility] complaint of right hip pain and right arm pain located over the proximal right humerus. The patient denies any head trauma or loss of consciousness. Denies neck pain after the fall or at the time of this interview. He does complain of mild chronic shortness of breath secondary to COPD for which he wears oxygen at night. Pain on right hip is worse with movement such as flexion, weightbearing but states that the pain feels better when the extremity is flexed at the knee. The patient otherwise denies any fevers, chills, chest pain, nausea, vomiting, abdominal pain or dysuria. The patient does complain of lower extremity edema, but denies any increased tenderness. The patient was given a milligrams of morphine IV by EMS prior to arrival with slight improvement of the pain. CBC/BMP: 02/03/17 0740 02/03/17 0740 Significant Findings Laboratory Tests Test 01/31/17 14:25 02/01/17 05:45 02/02/17 07:43 02/03/17 07:40 White Blood Count 15.3 TH/MM3 (4.0-11.0) 11.1 TH/MM3 (4.0-11.0) 14.7 TH/MM3 (4.0-11.0) Neutrophils (%) (Auto) 88.6 % (16.0-70.0) 79.9 % (16.0-70.0) Lymphocytes (%) (Auto) 2.6 % (9.0-44.0) 4.7 % (9.0-44.0) Neutrophils # (Auto) 13.5 TH/MM3 (1.8-7.7) 8.8 TH/MM3 (1.8-7.7) Lymphocytes # (Auto) 0.4 TH/MM3 (1.0-4.8) 0.5 TH/MM3 (1.0-4.8) Monocytes # (Auto) 1.0 TH/MM3 (0-0.9) 1.1 TH/MM3 (0-0.9) Basophils # (Auto) 0.3 TH/MM3 (0-0.2) Blood Urea Nitrogen 28 MG/DL (7-18) 28 MG/DL (7-18) 28 MG/DL (7-18) 34 MG/DL (7-18) Total Protein 6.0 GM/DL (6.4-8.2) 5.9 GM/DL (6.4-8.2) Albumin 3.0 GM/DL (3.4-5.0) 2.4 GM/DL (3.4-5.0) Total Bilirubin 1.5 MG/DL (0.2-1.0) 1.5 MG/DL (0.2-1.0) Red Blood Count 4.33 MIL/MM3 (4.50-5.90) 3.93 MIL/MM3 (4.50-5.90) 3.71 MIL/MM3 (4.50-5.90) Monocytes (%) (Auto) 10.0 % (0.0-8.0) Eosinophils (%) (Auto) 4.7 % (0.0-4.0) Eosinophils # (Auto) 0.5 TH/MM3 (0-0.4) Estimat Glomerular Filtration Rate 81 ML/MIN (>89) 79 ML/MIN (>89) 73 ML/MIN (>89) Hemoglobin 12.1 GM/DL (13.0-17.0) 11.5 GM/DL (13.0-17.0) Hematocrit 37.7 % (39.0-51.0) 36.1 % (39.0-51.0) Random Glucose 132 MG/DL (74-106) Calcium Level 8.2 MG/DL (8.5-10.1) 8.0 MG/DL (8.5-10.1) Imaging Last Impressions Hip and Pelvis X-Ray 02/01/17 0000 Signed Impressions: Service Date/Time: Wednesday, February 01, 2017 12:28 - CONCLUSION: Good placement of a bipolar hip prosthesis on the right. Yosvany Esquivel MD Chest X-Ray 01/31/17 1324 Signed Impressions: Service Date/Time: Tuesday, January 31, 2017 14:05 - CONCLUSION: No acute abnormality with stable cardiomegaly and hiatal hernia. Danilo Rodrigez MD Humerus X-Ray 01/31/17 0000 Signed Impressions: Service Date/Time: Tuesday, January 31, 2017 14:07 - CONCLUSION: 1. No acute fracture or significant dislocation. 2. Calcific tendinitis and degenerative osteoarthritis. Danilo Rodrigez MD Hand X-Ray 01/31/17 0000 Signed Impressions: Service Date/Time: Tuesday, January 31, 2017 14:11 - CONCLUSION: 1. No acute fracture or dislocation. 2. Advanced degenerative osteoarthritis. Danilo Rodrigez MD PE at Discharge GENERAL: Well-nourished, well-developed male patient, on 2 L NC in no apparent distress. SKIN:Right hip dressing in place, d/d/i. Bilateral lower extremity dressing intact, c/d. HEAD: Normocephalic. PERRL. EYES: No scleral icterus. No injection or drainage. NECK: Supple, trachea midline. No JVD or lymphadenopathy. CARDIOVASCULAR: Regular rate and rhythm without murmurs, gallops, or rubs. S1 and S2 present. RESPIRATORY: Breath sounds equal bilaterally. No accessory muscle use. Clear to auscultation. GASTROINTESTINAL: Abdomen soft, non-tender, nondistended. Hypoactive bs x 4 q. EXTREMITIES: No cyanosis, or edema. SCDs in place. Warm to touch. DP and pedal pulses present 2+. NEUROLOGICAL: Awake, alert, and oriented x 3. Follows commands. Muscle strength in bilateral upper and lower extremities. Pt update on day of discharge Patient reports he is feeling okay. Discussed with RN. He is having issues with urinary retention. Hospital Course 86-year-old male admitted for right hip fracture after mechanical fall. Patient underwent hip fracture repair by orthopedics. Comorbid conditions treated as follow: Status post right hip replacement secondary to fall: Mechanical fall. Tripped over by his dog. - Status post repair by orthopedics. Continue pain control, DVT prophylaxis, discharged to inpatient rehabilitation Chronic obstructive pulmonary disease: Home medications continued including Symbicort and albuterol. Treat with as needed oxygen. Hypertension, chronic: Well controlled. At times his blood pressure was on the low side. Continue atenolol only. Spironolactone and Bumex were discontinued. Urinary retention postop: Patient required multiple straight catheterization. Still having issues with urinary retention. I suspect some degree of BPH. - We'll start on Flomax. Insert Lowe catheter. May have another voiding trial at rehabilitation in a couple of days. If persisting, consider urology consultation Pt Condition on Discharge: Good Discharge Disposition: Rehab Inpatient Discharge Time: > 30 minutes Discharge Instructions DIET: Follow Instructions for: Heart Healthy Diet Activities you can perform: Weight Bearing as Ricarda Follow up Referrals: Orthopedics - 2 Weeks with Maury Cotto MD New Medications: Aspirin (Aspirin Low Dose) 81 Mg Chew 81 MG CHEW DAILY for Prevent Blood Clot for 30 Days, #30 TAB 0 Refills Enoxaparin Inj (Lovenox Inj) 40 Mg/0.4 Ml Syr 40 MG SQ DAILY for Blood Clot Prevention for 7 Days, #7 SYRINGE 0 Refills Hydrocodone-Acetaminophen ([place]) 7.5-325 mg Tab 1-2 TAB PO Q6H PRN for PAIN, #90 TAB 0 Refills Continued Medications: Albuterol 6.7 GM Inh (Proventil Hfa 6.7 GM Inh) 90 Mcg/Act Aer 2 PUFF INH Q4-6H PRN for SHORTNESS OF BREATH, #1 INHALER 0 Refills Albuterol Neb (Albuterol Neb) 0.63 Mg/3 Ml Neb 0.63 MG NEB Q4HR NEB PRN for SHORTNESS OF BREATH, #25 NEBULE 0 Refills Alprazolam (Alprazolam) 0.25 Mg Tab 0.25 MG PO Q4H PRN for ANXIETY, TAB [address] (Aspir-81) 81 Mg Tabdr Atenolol (Atenolol) 25 Mg Tab 12.5 MG PO DAILY for Blood Pressure Management, #30 TAB 0 Refills Atorvastatin (Atorvastatin) 40 Mg Tab 40 MG PO HS for Cholesterol Management, #30 TAB 0 Refills Budesonide-Formoterol Inh (Symbicort Inh) 80-4.5 Mcg/Act Aero 2 PUFF INH Q12HR for Asthma Management, #1 INHALER 0 Refills Hydrocodone-Acetaminophen (Hydrocodone-Acetaminophen) 10-325 mg Tab 1 TAB PO Q6H PRN for PAIN, TAB 0 Refills Ipratropium-Albuterol Neb (Duoneb) 0.5-2.5 Mg/3 Ml Neb 1 NEBULE INH QID PRN for SOB/WHEEZING, #120 NEBULE 0 Refills Mirabegron (Myrbetriq) 50 Mg Tab 50 MG PO DAILY for Urinary Symptom Managemen, #30 TAB 0 Refills Nitroglycerin SL (Nitrostat SL) 0.4 Mg Subl 0.4 MG SL DIRECTED PRN for CHEST PAIN, #100 TAB.SL 0 Refills 1 tablet under the tongue as needed for chest pain. Repeat every 5 minutes for a total of 3 DOSES or call 911 if NO relief. Ranitidine (Ranitidine) 150 Mg Cap 150 MG PO DAILY, #30 CAP 0 Refills Temazepam (Temazepam) 15 Mg Cap 15 MG PO HS PRN for INSOMNIA, #30 CAP 0 Refills Discontinued Medications: Bumetanide (Bumetanide) 1 Mg Tab 1 MG PO DAILY, #30 TAB 6 Refills Dextromethorphan-Guaifenesin (Mucinex DM) 30-600 Mg Tab 1 TAB PO BID PRN for CHEST CONGESTION AND/OR COUGH, TAB 0 Refills Prednisone (Prednisone) 1 Mg Tab 2 MG PO DAILY, TAB 0 Refills Prednisone (Prednisone) 2.5 Mg Tab 2 MG PO DAILY, TAB 0 Refills Spironolactone (Spironolactone) 100 Mg Tab 100 MG PO DAILY, #30 TAB 0 Refills Radha Khalil MD Feb 03, 2017 10:05
[2017-02-03] MEDS ORDERED: TAMSULOSIN HCL 0.4 MG CAP PO SCH (11:00)
[2017-02-03] MEDS: ENOXAPARIN SODIUM 40 MG/0.4 ML SYRINGE SQ SCH (11:56)
[2017-02-03 12:00] VITALS: BP 113/53; PULSE 97; RESP 20; TEMP 97.4; O2SAT 98
[2017-02-03 12:26] VITALS: O2SAT 94
--- NOTE | 2017-02-03 18:50 | PD.WCN.NOT ---
Wound Consult Description: Late entry from 02/03/2017 at 1330: Received consult for bilateral lower leg wounds from Doctor Remi Communicated with: Late entry from 02/03/2017 at 1330: OMAR Matson [address] [place] [address] and [facility]ando WANG [facility]: Please continue home health care wound care as follows: Cleanse wounds to BLE with normal saline and pat dry. Apply Maxorb II (Calcium Alginate) dressing over wounds and cover with ABD pad. Secure dressing with rolled gauze, tape and stockinette. Change dressings every 2 days or PRN if saturated or dislodged. Additional Information: Late entry from 02/03/2017 at 1330: Patient seen on [address] [place] [address] for evaluation of bilateral lower leg wound management. Patient has been refusing to let nurses in hospital change dressings. States, 'Tawanna changes my dressings." referring to [facility] nurse. Patient allowed leader writer to change dressing on R leg. Removed cast padding wrap, Xeroform dressing and ABD pad in place to reveal 3 shallow leg ulcers with 100% pink tissue and minimal serous drainage. Wounds measures ~3cm x ~3mc x~<0.1cm. Cleansed wounds with normal saline before applying Xeroform dressing in single layer just over wound beds, covered with ABD pads. Secured dressing with rolled gauze and tape.Patient is being [facility] and has come to hospital with wounds to BLE. [facility] health care manages wounds for patient at home. Spoke with Junior from [facility], will continue their wound care for continuity of care. Mando WANG in room during dressing change of R leg. Spoke with Mando regarding recommendations [facility] Feb 03, 2017 18:50
--- NOTE | 2017-02-03 19:09 | MP ---
cc: ANTHONY WILEY M.D. DATE OF SURGERY: 02/01/2017 PREOPERATIVE DIAGNOSIS Right femoral neck fracture. POSTOPERATIVE DIAGNOSES Right femoral neck fracture. PROCEDURE Right bipolar hemiarthroplasty. SURGEON Dr. Anthony Wiley GAS APPLIANCE SERVICER: GRETCHEN Conner ANESTHESIA General. ESTIMATED BLOOD LOSS: 100 cc COMPLICATIONS None. IMPLANTS: DePuy Corail size 13, Press-Fit, standard offset femoral stem size 49 cup, 28 head, +1.5 neck. JUSTIFICATION: This patient is an 86 year-old male who fell sustaining displaced right femoral neck fracture. He was taken to [facility] emergency room. X-rays confirmed the above named findings. Orthopedic surgery counseled. The patient was counseled as to the risks, benefits and alternatives of the above named procedure. He did wish to proceed with surgery. PROCEDURE IN DETAIL: A written consent obtained. The patient identified by name, taken to the operating room, placed in supine position. General anesthesia was administered as well as 2 grams of IV Ancef and 1 gram of IV vancomycin. The patient was carefully turned to the left lateral decubitus position. Lateral arm roll was placed. All bony prominences and pressure points were well-padded. The right hip and right lower extremity was prepped and draped using isopropyl alcohol, Hibiclens solution and Chloraprep solution. After time-out was performed, a longitudinal incision was made over the posterolateral aspect of the right hip. The fascial layer was incised. The piriformis capsule was incised and tagged with #2 FiberWire suture. An oscillating saw was used to perform a fresh femoral neck cut. The fractured femoral head and neck component was removed. A 10 blade scalpel was used to excise some of the entrapped soft tissue within the capsule as well. A box cutting oscillating saw was used to gain entrance into the intramedullary canal of the femur. This was followed by canal finder and lateralizing reamer, sequential broaching up to size 13. This was followed by a calcar planer. Trial head and neck combination were evaluated with the current components. The leg achieved full extension and external rotation without evidence of anterior instability or impingement. The leg achieved flexion of 90 and internal rotation of 70 before evidence of posterior instability. Soft tissue tension felt appropriate and clinical leg lengths felt relatively symmetric. The surgical wounds were thoroughly irrigated with sterile saline, pulse lavage, antibiotic impregnated solution. The piriformis capsule was repaired primarily with #2 FiberWire suture. Fascial layer with #1 Vicryl suture. The subcutaneous layer with 2-0 Vicryl suture. Skin was closed with Dermabond. Sterile dressing applied. The patient tolerated the procedure well with no intraoperative complications noted. Kirt Horan, physician ophthalmic surgical assistant certified, was present during the entire procedure to include patient positioning and the procedure itself. The medical necessity of the physician ophthalmic surgical assistant is indicated in this case due to the complexity of the procedure itself. He assisted with appropriate manipulation of the leg, also retraction of muscle, tendon, bone and neurovascular structures. He assisted with implantation of the prosthetic replacement as well. MD SERA Castro/BRENDA /11:39 AM /6:14 PM
[2017-02-05] MEDS ORDERED: IPRASOL NEB (02:11)
[2017-02-05] MEDS ORDERED: IPRASOL INH (02:11)
[2017-02-05] MEDS ORDERED: SYMB80AE INH (02:11)
[2017-02-05] MEDS ORDERED: TAMS5CAP PO (02:11)
[2017-02-05] MEDS ORDERED: ASPI81CH25 PO (02:11)
[2017-02-05] MEDS ORDERED: SENN1TAB PO (02:11)
[2017-02-05] MEDS ORDERED: FAMO20TA2 PO (02:11)
[2017-02-05] MEDS ORDERED: THERTAB15 PO (02:11)
[2017-02-05] MEDS ORDERED: VENTAER INH (02:11)
[2017-02-05] MEDS ORDERED: NYST10007 TOPICAL (02:11)
[2017-02-05] MEDS ORDERED: ENOX40P SQ (02:11)
[2017-02-05] MEDS ORDERED: ATOR40TA16 PO (02:11)
[2017-02-05] MEDS ORDERED: ATEN25TA PO (02:11)
[2017-02-20] MEDS ORDERED: COMMODE 3-IN-11 MIS (12:26)
[2017-02-20] MEDS ORDERED: WHEEMIS3 (12:26)
[2017-02-20] MEDS ORDERED: GETGO ROLLING W1 MI1 (12:26)
[2017-02-26] MEDS ORDERED: FAMO1TAB73 PO (08:23)
[2017-02-26] MEDS ORDERED: ATEN25TA PO (08:23)
[2017-02-26] MEDS ORDERED: ATOR40TA16 PO (08:23)
[2017-02-26] MEDS ORDERED: THERTAB15 PO (08:23)
[2017-02-26] MEDS ORDERED: HYDR-3516 PO (08:23)
[2017-02-26] MEDS ORDERED: SENN1TAB PO (08:23)
[2017-02-26] MEDS ORDERED: DIGO0.12 PO (08:23)
[2017-02-26] MEDS ORDERED: VENTAER INH (08:23)
[2017-02-26] MEDS ORDERED: ASPI81CH25 PO (08:23)
[2017-02-26] MEDS ORDERED: SYMB80AE INH (08:23)
[2017-02-26] MEDS ORDERED: TAMS5CAP PO (08:23)
[2017-02-26] MEDS ORDERED: SPIR25 PO (08:23)
[2017-02-26] MEDS ORDERED: ROPI.25 PO (08:23)
== END 2017-02-03 14:37 | DRG 470 ==
LOC: HOR 13:01 → PHEDA 15:10 → N07B 18:36 → N06B 02-01 11:48 → N06A 02-01 19:09
PROVIDERS: ADMIT Family Medicine; ATTEND Family Medicine
PROC: 0SRR0JA Replacement of Right Hip Joint, Femoral Surface with Synthetic Substitute, Uncemented, Open Approach (ICD-10-PCS; principal; 2017-02-01 10:22)
DX: S72.001A Fracture of unspecified part of neck of right femur, initial encounter for closed fracture (principal); I50.9 Heart failure, unspecified; I11.0 Hypertensive heart disease with heart failure; Z99.81 Dependence on supplemental oxygen; J44.9 Chronic obstructive pulmonary disease, unspecified; I48.0 Paroxysmal atrial fibrillation; E86.0 Dehydration; S40.011A Contusion of right shoulder, initial encounter; E78.5 Hyperlipidemia, unspecified; D72.89 Other specified disorders of white blood cells; I25.2 Old myocardial infarction; I25.10 Atherosclerotic heart disease of native coronary artery without angina pectoris; K21.9 Gastro-esophageal reflux disease without esophagitis; K42.9 Umbilical hernia without obstruction or gangrene; N99.89 Other postprocedural complications and disorders of genitourinary system; R33.8 Other retention of urine; N40.1 Benign prostatic hyperplasia with lower urinary tract symptoms; H91.93 Unspecified hearing loss, bilateral; M48.00 Spinal stenosis, site unspecified; M19.90 Unspecified osteoarthritis, unspecified site; W01.0XXA Fall on same level from slipping, tripping and stumbling without subsequent striking against object, initial encounter; Y93.K1 Activity, walking an animal; Z85.46 Personal history of malignant neoplasm of prostate; Z86.73 Personal history of transient ischemic attack (TIA), and cerebral infarction without residual deficits; Z87.891 Personal history of nicotine dependence; Z88.1 Allergy status to other antibiotic agents; Z88.2 Allergy status to sulfonamides; Z88.5 Allergy status to narcotic agent; Z88.7 Allergy status to serum and vaccine; Z92.3 Personal history of irradiation; Z95.5 Presence of coronary angioplasty implant and graft
CPT/HCPCS: 71010; 73060; 73120; 73502; 80048; 80053; 85025; 85027; 85610; 85730; 86850; 86900; 86901; 93005; 94150; 94640; 94664; C1776; J0690; J1170; J1580; J1644; J1650; J2175; J2270; J2370; J2405; J2710; J3010; J3370; J7030; J7613; L1830

== ENCOUNTER 2017-02-05 02:11 | Inpatient (IN) | payer MEDICARE, OTHER ==
[2017-02-05] VITALS (27 sets, daily range): BP systolic 109–122; BP diastolic 50–60; PULSE 70–87; RESP 18–21; TEMP 97.9–99.2; O2SAT 91–98
[~2017-02-05 02:11] MED LIST changes: +ASPI81CH25 PO; -BUME1TAB PO; +ENOX40P SQ; +FAMO20TA2 PO; +HYDR-3288 PO; +IPRASOL INH; +IPRASOL NEB; +MIRA50TA PO; -MUCI30TA2 PO; +NYST10007 TOPICAL; -POTA-163 PO; -PRED1 PO; +SENN1TAB PO; +TAMS5CAP PO; +THERTAB15 PO; +VENTAER INH
[2017-02-05] MEDS ORDERED: RESP: ALBUTEROL 2.5 MG/IPRATROPIUM 0.5 MG NEB (PRN) NEB (02:30)
[2017-02-05] MEDS ORDERED: SODIUM CHLORIDE 0.9% FLUSH 10 ML FLUSH IV FLUSH PRN ×2 (02:30→03:15)
[2017-02-05] MEDS ORDERED: NALOXONE HCL 0.4 MG/ML AMP IV PUSH PRN ×2 (02:30→03:15)
[2017-02-05] MEDS ORDERED: TEMAZEPAM 15 MG CAP PO PRN (03:15)
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
[2017-02-05] MEDS: RESP: ALBUTEROL 2.5 MG/IPRATROPIUM 0.5 MG NEB (SCH) NEB ×4 (04:00→20:54)
[2017-02-05 06:05] LABS: AUTOMATED NEUTROPHIL # 6.5 TH/MM3 (1.8-7.7); BASOPHIL % 0.1 % (0.0-2.0); EOSINOPHIL # 0.5 TH/MM3 (0-0.4); HEMATOCRIT 33.2 % (39.0-51.0); HEMO FLAGS DIFF FINAL; LYMPH % 4.6 % (9.0-44.0); LYMPHOCYTE # 0.4 TH/MM3 (1.0-4.8); MEAN CELL VOLUME 95.9 FL (80.0-100.0); MEAN CORPUSCULAR HEMOGLOBIN 31.7 PG (27.0-34.0); MEAN CORPUSCULAR HGB CONC 33.1 % (32.0-36.0); MONO % 13.6 % (0.0-8.0); NEUT % 75.7 % (16.0-70.0); PLATELET COUNT 155 TH/MM3 (150-450); RED BLOOD COUNT 3.46 MIL/MM3 (4.50-5.90); RED CELL DISTRIBUTION WIDTH 14.5 % (11.6-17.2); WHITE BLOOD COUNT 8.5 TH/MM3 (4.0-11.0)
[2017-02-05 06:34] LABS: ALT (GPT) 31 U/L (12-78); ANION GAP 7 MEQ/L (5-15); AST (GOT) 49 U/L (15-37); BICARBONATE 27.3 MEQ/L (21.0-32.0); BLOOD UREA NITROGEN 24 MG/DL (7-18); CHLORIDE 104 MEQ/L (98-107); GLOMERULAR FILTRATION RATE 85 ML/MIN (>89); POTASSIUM 4.3 MEQ/L (3.5-5.1); SODIUM (NA) 138 MEQ/L (136-145)
[2017-02-05 06:36] LABS: ALKALINE PHOSPHATASE 49 U/L (45-117); TOTAL BILIRUBIN ADULT 0.8 MG/DL (0.2-1.0)
[2017-02-05] MEDS: CEFEPIME INJ 2,000 MG in SODIUM CHLORIDE 0.9% INJ 100 ML IV SCH ×2 (06:46→17:29)
[2017-02-05] MEDS: ATENOLOL 25 MG TAB PO SCH (08:30)
[2017-02-05] MEDS: FAMOTIDINE 20 MG TAB PO SCH (08:30)
[2017-02-05] MEDS: ASPIRIN 81 MG CHEW TAB PO SCH (08:30)
[2017-02-05] MEDS: MULTIVITAMIN TAB PO SCH (08:30)
[2017-02-05] MEDS: SPIRONOLACTONE 25 MG TAB PO SCH ×2 (08:30→18:00)
[2017-02-05] MEDS: ENOXAPARIN SODIUM 40 MG/0.4 ML SYRINGE SQ SCH (08:31)
[2017-02-05] MEDS: SODIUM CHLORIDE 0.9% FLUSH 10 ML FLUSH IV FLUSH SCH ×2 (08:31→21:54)
[2017-02-05] MEDS: BUDESONIDE-FORMOTEROL 80/4.5 MCG INHALER INH SCH ×2 (08:31→21:54)
[2017-02-05] MEDS ORDERED: SODIUM CHLORIDE 0.9% FLUSH 10 ML FLUSH IV FLUSH SCH (09:00)
--- NOTE | 2017-02-05 10:05 | RADRPT ---
EXAM DATE/TIME: 02/05/2017 09:47 [facility] COMPARISON: CHEST SINGLE AP, February 04, 2017, 16:36. INDICATIONS : Short of breath and congestion. MEDICAL HISTORY : Hypertension. Cardiovascular disease. Carcinoma, prostatic. A-fib, CHF SURGICAL HISTORY : None. ENCOUNTER: Subsequent ACUITY: 1 day PAIN SCORE: 6/10 LOCATION: Bilateral chest FINDINGS: PA and lateral views of the chest demonstrate cardiomegaly with interstitial edema. Patchy bibasilar densities. Osseous structures are intact. Hiatal hernia. CONCLUSION: 1. Cardiomegaly with interstitial edema. 2. Bibasilar densities. 3. Hiatal hernia. Imer Luke MD on February 05, 2017 at 10:02 Board Certified Radiologist. This report was verified electronically.
[2017-02-05] MEDS: METOLAZONE 5 MG TAB PO SCH (13:11)
--- NOTE | 2017-02-05 16:41 | HHI.PR ---
Addendum to Inpatient Note Addendum Reason: Additional Documentation Additional Information In summary this is a patient who fell on January 31. The patient fell onto the right side and sustained a right hip bipolar arthroplasty. The patient was then discharged to rehabilitation for further rehabilitation needs. However on 02/05 the patient started desating and having elevated requirements of oxygen. ABG obtained on 4 L supplement oxygen showed an oxygen saturation of 83%, pH of 7.43 and PO2 52. The patient was transferred to the medical floor and admitted for further management of respiratory failure and congestive heart failure. The patient denies currently any chest pain or shots of breath. The patient is awake alert oriented 3, nonacute distress, sitting in the chair at bedside, S1- S2 present with regular rate and rhythm with a murmur rubs or gallops. On auscultation lungs are clear bilaterally, however breath sounds are diminished. Chest x-ray on 02/05 showed cardiomegaly and interstitial edema. CT angiogram obtained on rehabilitation center did not show any evidence of pulmonary embolism. Showed small bilateral pleural effusions with adjacent compressive atelectasis, cardiomegaly and coronary artery calcifications. Large hiatal hernia containing the majority of the stomach. Acute respiratory failure likely secondary to CHF exacerbation. Continue Aldactone 25 minutes by mouth twice a day, I will add metolazone 5 minutes by mouth daily. Continue to monitor strict I's and O's. Continue supplemental oxygen to keep on oxygen saturation more than 92%. Patient also has a UTI for which she was started on cefepime IV, which I will continue. Urine culture negative 48 hours. Blood cultures pending. Cecilio Padilla MD Feb 05, 2017 16:41
[2017-02-05] MEDS: TAMSULOSIN HCL 0.4 MG CAP PO SCH (21:52)
[2017-02-05] MEDS: ATORVASTATIN 40 MG TAB PO SCH (21:53)
[2017-02-06] VITALS (19 sets, daily range): BP systolic 105–136; BP diastolic 53–76; PULSE 67–99; RESP 18–20; TEMP 98.2–99.5; O2SAT 91–97
[2017-02-06] MEDS: RESP: ALBUTEROL 2.5 MG/IPRATROPIUM 0.5 MG NEB (SCH) NEB ×4 (03:38→21:37)
[2017-02-06] MEDS: CEFEPIME INJ 2,000 MG in SODIUM CHLORIDE 0.9% INJ 100 ML IV SCH ×2 (05:26→17:42)
[2017-02-06] MEDS: SPIRONOLACTONE 25 MG TAB PO SCH ×2 (08:16→17:43)
[2017-02-06] MEDS: ENOXAPARIN SODIUM 40 MG/0.4 ML SYRINGE SQ SCH (08:16)
[2017-02-06] MEDS: ASPIRIN 81 MG CHEW TAB PO SCH (08:16)
[2017-02-06] MEDS: ATENOLOL 25 MG TAB PO SCH (08:16)
[2017-02-06] MEDS: METOLAZONE 5 MG TAB PO SCH (08:16)
[2017-02-06] MEDS: MULTIVITAMIN TAB PO SCH (08:16)
[2017-02-06] MEDS: FAMOTIDINE 20 MG TAB PO SCH ×2 (08:16→23:14)
[2017-02-06] MEDS: SODIUM CHLORIDE 0.9% FLUSH 10 ML FLUSH IV FLUSH SCH ×2 (08:16→23:19)
[2017-02-06] MEDS: BUDESONIDE-FORMOTEROL 80/4.5 MCG INHALER INH SCH ×2 (10:08→21:00)
[2017-02-06] MEDS: PANTOPRAZOLE SOD 40 MG DELAYED RELEASE TAB PO SCH ×2 (12:00→23:13)
--- NOTE | 2017-02-06 14:57 | PD.WCN.NOT ---
Wound Consult Description: Received consult for BLE , Hips and Buttocks. Communicated with: OMAR Rob and call placed to Doctor Alis Recommendation: Please apply skin prep to Deep tissue injury on medial lumbar area and leave open to air. Cleanse wound to L posterior hip with normal saline and pat dry.Apply skin prep to intact Deep tissue injury on L posterior hip and cover partial thickness wound with bordered gauze. Cleanse bilateral lower extremity wounds with normal saline or wound cleanser and cain dry, Apply Optifoam AG gentle over wounds and cover secure with rolled gauze and tape. Change dressing every 2 days or PRN for saturation is dislodgment. Please obtain QuNano Airapy bed or if not available please order BugBuster bed Additional Information: Patient seen on [facility] for evaluation of wounds to buttocks, hips. Patient already seen for bilateral lower extremity wound recommendations on previous admission earlier this week. Patient turned to L side for evaluation of buttock area. Patient noted with non blanchable purple discoloration to R hip with partial thickness skin loss, indicating deep tissue injury that has opened. Partial thickness skin loss measures ~2cm x ~3cm, DTI measures 0.7cm x 0.7cm. Cleansed partial thickness skin loss with normal saline before covering with bordered gauze. DTI also noted to medial lumbar area. left area opened to air. Blanchable erythema and dark discoloration is noted to buttock and L hip area. Patient already seen for bilateral lower extremity wound recommendations earlier this week on previous admission. Patient then was admitted to [facility]. Wound care for BLE was as follows Optifoam AG gentle, secured with rolled gauze and tape. Please continue this wound care and elevate BLE. Celeste Jackson [facility] Feb 06, 2017 14:57
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
[2017-02-06] MEDS: guaiFENesin E.R. 600 MG TAB PO SCH (23:14)
[2017-02-06] MEDS: ATORVASTATIN 40 MG TAB PO SCH (23:15)
[2017-02-06] MEDS: TAMSULOSIN HCL 0.4 MG CAP PO SCH (23:15)
[2017-02-07] VITALS (32 sets, daily range): BP systolic 85–132; BP diastolic 45–93; PULSE 72–165; RESP 16–20; TEMP 97.4–98.9; O2SAT 92–98
[2017-02-07] MEDS ORDERED: LIDOCAINE VISCOUS 2% SOLN 15 ML UDC PO ONE (00:45)
[2017-02-07] MEDS ORDERED: ALUMINUM/MAGNESIUM/SIMETH 30 ML CUP PO ONE (00:45)
[2017-02-07] MEDS ORDERED: diphenhydrAMINE HCL ELIXIR 12.5 MG/5 ML CUP PO ONE (00:45)
[2017-02-07] MEDS ORDERED: DILTIAZEM HCL 25 MG/5 ML VIAL IV ONE (01:45)
[2017-02-07] MEDS: RESP: ALBUTEROL 2.5 MG/IPRATROPIUM 0.5 MG NEB (SCH) NEB ×4 (03:55→21:56)
[2017-02-07 04:15] LABS: AUTOMATED NEUTROPHIL # 8.2 TH/MM3 (1.8-7.7); BASOPHIL % 0.2 % (0.0-2.0); EOSINOPHIL # 0.6 TH/MM3 (0-0.4); HEMATOCRIT 38.2 % (39.0-51.0); HEMO FLAGS DIFF FINAL; LYMPH % 4.3 % (9.0-44.0); LYMPHOCYTE # 0.5 TH/MM3 (1.0-4.8); MEAN CELL VOLUME 95.3 FL (80.0-100.0); MEAN CORPUSCULAR HEMOGLOBIN 31.4 PG (27.0-34.0); MONO % 12.2 % (0.0-8.0); NEUT % 77.3 % (16.0-70.0); PLATELET COUNT 212 TH/MM3 (150-450); RED BLOOD COUNT 4.01 MIL/MM3 (4.50-5.90); RED CELL DISTRIBUTION WIDTH 14.5 % (11.6-17.2); WHITE BLOOD COUNT 10.6 TH/MM3 (4.0-11.0)
[2017-02-07] MEDS ORDERED: DILTIAZEM HCL 25 MG/5 ML VIAL IV PUSH ONE (04:30)
[2017-02-07 04:40] LABS: ANION GAP 7 MEQ/L (5-15); BICARBONATE 30.4 MEQ/L (21.0-32.0); BLOOD UREA NITROGEN 19 MG/DL (7-18); CHLORIDE 99 MEQ/L (98-107); GLOMERULAR FILTRATION RATE 87 ML/MIN (>89); MAGNESIUM 2.2 MG/DL (1.5-2.5); SODIUM (NA) 136 MEQ/L (136-145)
[2017-02-07 04:41] LABS: ALT (GPT) 49 U/L (12-78); AST (GOT) 49 U/L (15-37)
[2017-02-07 04:49] LABS: ALKALINE PHOSPHATASE 53 U/L (45-117); FREE T4 1.27 NG/DL (0.76-1.46); TOTAL BILIRUBIN ADULT 0.8 MG/DL (0.2-1.0)
[2017-02-07] MEDS: CEFEPIME INJ 2,000 MG in SODIUM CHLORIDE 0.9% INJ 100 ML IV SCH ×2 (05:00→17:50)
[2017-02-07] MEDS: DILTIAZEM INJ 125 MG in SODIUM CHLORIDE 0.9% INJ 100 ML IV PRN ×2 (05:23→21:51)
[2017-02-07] MEDS ORDERED: DIGOXIN 0.5 MG/2 ML VIAL ONE (08:00)
[2017-02-07] MEDS ORDERED: DIGOXIN 0.5 MG/2 ML VIAL IV PUSH ONE (08:15)
[2017-02-07] MEDS: SODIUM CHLORIDE 0.9% FLUSH 10 ML FLUSH IV FLUSH SCH ×2 (09:00→21:54)
[2017-02-07] MEDS: ENOXAPARIN SODIUM 40 MG/0.4 ML SYRINGE SQ SCH (10:44)
[2017-02-07] MEDS: ATENOLOL 25 MG TAB PO SCH (10:45)
[2017-02-07] MEDS: PANTOPRAZOLE SOD 40 MG DELAYED RELEASE TAB PO SCH ×2 (10:45→21:00)
[2017-02-07] MEDS: MULTIVITAMIN TAB PO SCH (10:45)
[2017-02-07] MEDS: guaiFENesin E.R. 600 MG TAB PO SCH ×2 (10:45→21:00)
[2017-02-07] MEDS: ASPIRIN 81 MG CHEW TAB PO SCH (10:45)
[2017-02-07] MEDS: FAMOTIDINE 20 MG TAB PO SCH ×2 (10:45→21:00)
[2017-02-07] MEDS: METOLAZONE 5 MG TAB PO SCH (10:46)
[2017-02-07] MEDS: BUDESONIDE-FORMOTEROL 80/4.5 MCG INHALER INH SCH ×2 (10:46→21:53)
[2017-02-07] MEDS: SPIRONOLACTONE 25 MG TAB PO SCH ×2 (10:47→17:50)
--- NOTE | 2017-02-07 11:17 | MB ---
cc: SHALONDA GALDAMEZ MD DATE OF CONSULTATION: 02/07/17 REASON FOR CONSULTATION Atrial fibrillation. HISTORY OF PRESENT ILLNESS The patient is a pleasant 86-year-old gentleman who sees my partner Dr. Thompson for a long history of coronary disease, COPD, chronic lower extremity edema and atrial fibrillation (who was apparently not on anticoagulation due to stomach issues). The patient has been in the hospital for about a week following a right bipolar hemiarthroplasty following a fall caused by his dog. He was brought down from [facility] due to decreasing oxygen saturation and rapid ventricular response to his atrial fibrillation. This morning he was feeling frustrated that his rehab progress has been halted but he denies any cardiac symptoms such as chest pain, shortness breath, lightheadedness or dizziness. PAST MEDICAL HISTORY As above. CURRENT MEDICATIONS 1. Digoxin. 2. Cardizem drip is now off. 3. Pepcid. 4. Guaifenesin. 5. Protonix. 6. Lipitor. 7. Flomax. 8. Zaroxolyn 5 mg daily. 9. Aldactone 25 mg b.i.d. 10. Aspirin 81 mg daily. daily. 11. Atenolol to 12.5 mg daily. 12. Lovenox 40 mg subcu q.12. ALLERGIES FLUE VACCINE, SULFA, BUMEX, CIPRO, LASIX, LEVAQUIN, MORPHINE. PHYSICAL EXAMINATION VITAL SIGNS: Afebrile, pulse 75, respiratory rate 80, BP 85/52, satting 97 on room air. GENERAL: A pleasant elderly gentleman in no distress. NECK: No JVD. LUNGS: Clear auscultation bilaterally. CARDIOVASCULAR: Irregularly irregular rhythm with a regular rate. No murmurs appreciated. ABDOMEN: Benign. EXTREMITIES: No edema. LABORATORY DATA White count 10.6, hematocrit 38.2, platelets 212. Sodium 136, potassium 4.0, chloride 99, bicarb 30.4, BUN 19, creatinine 0.84, glucose 113, troponin is 0.09, BNP is 157. EKG shows a rapid atrial fibrillation with diffuse nonspecific ST changes at about 155 beats per minute. Current telemetry shows a rate-controlled atrial fibrillation in the 90s. IMPRESSION Rapid atrial fibrillation. The patient's atrial fibrillation is now better controlled after he received a digoxin load and is now off the Cardizem drip, his blood pressures have been marginal. He had a normal ejection fraction by his echocardiogram in 2015 but a mildly reduced ejection fraction by his nuclear stress test. I will have him undergo a new echocardiogram just to insure his LV function is preserved and we can be a little bit more aggressive with his IV fluids. Regarding anticoagulation, the patient is a proven fall risk but certainly would be at risk of a stroke. I will defer final determination of his anticoagulation to his primary glove cutter Dr. Thompson. Further recommendations will be based on clinical course. Thank you again for the opportunity to participate in this patient's care. MD SHARIF Mott/EVER /10:10 AM /10:58 AM
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
[2017-02-07] MEDS: DIGOXIN 0.5 MG/2 ML VIAL IV PUSH SCH ×2 (14:00→21:58)
--- NOTE | 2017-02-07 15:47 | ECHRPT ---
Indication: shortness of breath CONCLUSIONS The left ventricular systolic function is low normal with an estimated ejection fraction in the rang e of 50- 55%. Normal left ventricular size. Wall thickness is normal. No regional wall motion abnormalities are present. The right ventricle was not well visualized. Trace aortic valve regurgitation. There is trace tricuspid valve regurgitation. The estimated pulmonary arterial pressure is 21.7 mmHg. BP: 116 / 60 HR: 78 Rhythm: Sinus MEASUREMENTS (Male / Female) Normal Values Technical Quality:Very technically difficult study 2D ECHO LV Ejection Fraction MOD 4C 54.4 % LV Cardiac Index MOD 4C 1513.7 cm/minm LV Ejection Fraction 4C AL 57.3 % LV Cardiac Index 4C AL 1656.0 cm/minm M-MODE Aortic Root Diameter MM 4.0 cm AV Cusp Separation MM 2.4 cm DOPPLER AV Peak Velocity 152.0 cm/s AV Peak Gradient 9.2 mmHg AI Peak Velocity 349.0 cm/s AI Peak Gradient 48.7 mmHg AI Pressure Half Time 494.0 ms LVOT Peak Velocity 126.0 cm/s LVOT Peak Gradient 6.4 mmHg MV Area PHT 2.9 cm Mitral E Point Velocity 69.6 cm/s Mitral A Point Velocity 98.7 cm/s Mitral E to A Ratio 0.7 TR Peak Velocity 171.0 cm/s TR Peak Gradient 11.7 mmHg Right Atrial Pressure 10.0 mmHg Pulmonary Artery Systolic Pressu 21.7 mmHg Right Ventricular Systolic Press 21.7 mmHg PV Peak Velocity 88.2 cm/s PV Peak Gradient 3.1 mmHg FINDINGS LEFT VENTRICLE Doppler parameters are consistent with impaired left ventricular relaxtion (grade 1 diastolic dysfun ction). The left ventricular systolic function is low normal with an estimated ejection fraction in the rang e of 50- 55%. Normal left ventricular size. Wall thickness is normal. No regional wall motion abnormalities are present. RIGHT VENTRICLE The right ventricle was not well visualized. LEFT ATRIUM The left atrial size is normal. RIGHT ATRIUM The right atrial size is normal. ATRIAL SEPTUM Normal atrial septal thickness without atrial level shunting by limited color doppler interrogation. AORTA The aortic root and proximal ascending aorta are normal in size on limited imaging. MITRAL VALVE Structurally normal mitral valve. No mitral valve stenosis or regurgitation. AORTIC VALVE Trace aortic valve regurgitation. TRICUSPID VALVE There is trace tricuspid valve regurgitation. The estimated pulmonary arterial pressure is 21.7 mmHg. PULMONARY VALVE No pulmonary valve regurgitation or stenosis. VESSELS The inferior vena cava is normal in size. PERICARDIUM No pericardial effusion. Baljit Berry MD (Electronically Signed) Final Date:07 February 2017 15:47
--- NOTE | 2017-02-07 16:33 | EKG ---
Date Performed: 02/07/2017 Time Performed: 01:01:36 PTAGE: 86 years EKG: Atrial fibrillation with uncontrolled ventricular response Inferior infarct - age undetermi merlin Compared to previous tracing, there's a rhythm change from sinus tachycardia to atrial fibrillati on with rapid ventricular response Abnormal ECG PREVIOUS TRACING : 01/31/2017 13.38 DOCTOR: Tonio Lopez Interpretating Date/Time 02/07/2017 16:32:26
[2017-02-07] MEDS ORDERED: ALUMINUM/MAGNESIUM/SIMETH 30 ML CUP PO PRN ×2 (18:45→19:00)
[2017-02-07] MEDS ORDERED: diphenhydrAMINE HCL ELIXIR 12.5 MG/5 ML CUP PO PRN (19:00)
[2017-02-07] MEDS ORDERED: LIDOCAINE VISCOUS 2% SOLN 15 ML UDC PO PRN (19:00)
[2017-02-07] MEDS: TAMSULOSIN HCL 0.4 MG CAP PO SCH (21:00)
[2017-02-07] MEDS: ATORVASTATIN 40 MG TAB PO SCH (21:00)
[2017-02-08] VITALS (25 sets, daily range): BP systolic 95–146; BP diastolic 45–70; PULSE 72–98; RESP 16–21; TEMP 97.6–99; O2SAT 90–98
[2017-02-08] MEDS: RESP: ALBUTEROL 2.5 MG/IPRATROPIUM 0.5 MG NEB (SCH) NEB ×4 (04:00→20:28)
[2017-02-08] MEDS: CEFEPIME INJ 2,000 MG in SODIUM CHLORIDE 0.9% INJ 100 ML IV SCH ×2 (06:16→17:27)
[2017-02-08 08:06] LABS: AUTOMATED NEUTROPHIL # 7.7 TH/MM3 (1.8-7.7); BASOPHIL % 0.3 % (0.0-2.0); EOSINOPHIL % 9.9 % (0.0-4.0); HEMATOCRIT 34.8 % (39.0-51.0); HEMO FLAGS DIFF FINAL; LYMPH % 5.9 % (9.0-44.0); LYMPHOCYTE # 0.6 TH/MM3 (1.0-4.8); MEAN CELL VOLUME 95.1 FL (80.0-100.0); MEAN CORPUSCULAR HGB CONC 32.6 % (32.0-36.0); MONO % 10.4 % (0.0-8.0); NEUT % 73.5 % (16.0-70.0); PLATELET COUNT 231 TH/MM3 (150-450); RED BLOOD COUNT 3.66 MIL/MM3 (4.50-5.90); RED CELL DISTRIBUTION WIDTH 14.2 % (11.6-17.2); WHITE BLOOD COUNT 10.4 TH/MM3 (4.0-11.0)
[2017-02-08 08:27] LABS: ALT (GPT) 42 U/L (12-78); ANION GAP 6 MEQ/L (5-15); AST (GOT) 33 U/L (15-37); BICARBONATE 30.4 MEQ/L (21.0-32.0); BLOOD UREA NITROGEN 21 MG/DL (7-18); CHLORIDE 100 MEQ/L (98-107); GLOMERULAR FILTRATION RATE 83 ML/MIN (>89); MAGNESIUM 2.2 MG/DL (1.5-2.5); SODIUM (NA) 136 MEQ/L (136-145)
[2017-02-08 08:30] LABS: ALKALINE PHOSPHATASE 51 U/L (45-117); TOTAL BILIRUBIN ADULT 0.8 MG/DL (0.2-1.0)
[2017-02-08] MEDS: guaiFENesin E.R. 600 MG TAB PO SCH ×2 (08:49→20:09)
[2017-02-08] MEDS: METOLAZONE 5 MG TAB PO SCH (08:49)
[2017-02-08] MEDS: ATENOLOL 25 MG TAB PO SCH (08:49)
[2017-02-08] MEDS: MULTIVITAMIN TAB PO SCH (08:50)
[2017-02-08] MEDS: ASPIRIN 81 MG CHEW TAB PO SCH (08:50)
[2017-02-08] MEDS: FAMOTIDINE 20 MG TAB PO SCH ×2 (08:50→20:09)
[2017-02-08] MEDS: DIGOXIN 0.125 MG TAB PO SCH (08:50)
[2017-02-08] MEDS: PANTOPRAZOLE SOD 40 MG DELAYED RELEASE TAB PO SCH ×2 (08:50→20:09)
[2017-02-08] MEDS: SPIRONOLACTONE 25 MG TAB PO SCH ×2 (08:50→17:27)
[2017-02-08] MEDS: SODIUM CHLORIDE 0.9% FLUSH 10 ML FLUSH IV FLUSH SCH ×2 (08:51→20:10)
[2017-02-08] MEDS: ENOXAPARIN SODIUM 40 MG/0.4 ML SYRINGE SQ SCH (08:51)
[2017-02-08] MEDS: BUDESONIDE-FORMOTEROL 80/4.5 MCG INHALER INH SCH ×2 (08:52→20:10)
--- NOTE | 2017-02-08 09:40 | PD.CARD.PN ---
Subjective Subjective Remarks Doing better, in NSR; he wants to go back to rehab as soon as he can. Objective Medications Administered Medications Medications (Trade) Dose Ordered Sig/Dominag Route PRN Reason Start Time Stop Time Status Last Admin Dose Admin Albuterol/ Ipratropium (Duoneb Neb) 1 ampule Q6HR NEB NEB 02/05/17 04:00 02/08/17 04:00 Spironolactone (Aldactone) 25 mg BID@,18 PO 02/05/17 09:00 02/08/17 08:50 Sodium Chloride (NS Flush) 2 ml BID IV FLUSH 02/05/17 09:00 02/08/17 08:51 Aspirin (Aspirin Chew) 81 mg DAILY PO 02/05/17 09:00 02/08/17 08:50 Atenolol (Tenormin) 12.5 mg DAILY PO 02/05/17 09:00 02/08/17 08:49 Atorvastatin Calcium (Lipitor) 40 mg HS PO 02/05/17 21:00 02/06/17 23:15 Budesonide/ Formoterol Fumarate (Symbicort 80-4.5 Mcg Inh) 2 puff Q12HR INH 02/05/17 09:00 02/08/17 08:52 Enoxaparin Sodium (Lovenox Inj) 40 mg DAILY SQ 02/05/17 09:00 02/08/17 08:51 Multivitamins (Theragran) 1 tab DAILY PO 02/05/17 09:00 02/08/17 08:50 Tamsulosin HCl (Flomax) 0.4 mg HS PO 02/05/17 21:00 02/06/17 23:15 Temazepam (Restoril) 15 mg HS PRN PO INSOMNIA 02/05/17 03:15 02/05/17 21:52 Cefepime HCl 2000 mg/Sodium Chloride 100 ml @ 200 mls/hr Q12H IV 02/05/17 05:00 02/08/17 06:16 Metolazone (Zaroxolyn) 5 mg DAILY PO 02/05/17 12:00 02/08/17 08:49 Famotidine (Pepcid) 40 mg BID PO 02/06/17 21:00 02/08/17 08:50 Pantoprazole Sodium (Protonix) 40 mg Q12HR PO 02/06/17 11:45 02/08/17 08:50 Guaifenesin (Mucinex Er) 600 mg BID PO 02/06/17 21:00 02/08/17 08:49 Diltiazem HCl 125 mg/Sodium Chloride 125 ml @ 5 mls/hr TITRATE PRN IV Tachycardia 02/07/17 04:30 02/07/17 21:51 Digoxin (Lanoxin) 0.125 mg DAILY PO 02/08/17 09:00 02/08/17 08:50 Diphenhydramine HCl (Benadryl Liq) 25 mg Q6H PRN PO HEARTBURN 02/07/17 19:00 02/07/17 21:49 Al Hydrox/Mg Hydrox/Simethicone (Mag-Al Plus Susp Liq) 30 ml Q6H PRN PO HEARTBURN 02/07/17 19:00 02/07/17 21:50 Lidocaine HCl (Xylocaine 2% Viscous) 5 ml Q6H PRN PO HEARTBURN 02/07/17 19:00 02/07/17 21:50 Vital Signs / I&O Vital Signs Date Time Temp Pulse Resp B/P (MAP) Pulse Ox O2 Delivery O2 Flow Rate FiO2 02/08/17 06:40 98.6 72 16 146/50 (82) 96 02/08/17 03:00 77 02/08/17 02:00 72 02/08/17 01:00 82 02/08/17 00:00 82 02/07/17 23:00 98.6 72 16 130/48 (75) 96 02/07/17 23:00 84 02/07/17 22:00 78 02/07/17 21:56 98 Nasal Cannula 2.00 02/07/17 21:51 78 132/47 02/07/17 21:00 72 02/07/17 20:03 96 Room Air 02/07/17 20:00 78 02/07/17 20:00 98.9 78 16 132/47 (75) 98 02/07/17 19:00 79 02/07/17 18:44 79 99/52 (68) 96 02/07/17 18:28 80 02/07/17 17:54 75 02/07/17 16:08 72 02/07/17 15:47 97.7 78 18 103/45 (64) 98 02/07/17 15:47 78 02/07/17 15:47 78 02/07/17 14:29 74 02/07/17 13:21 77 101/52 (68) 95 02/07/17 13:11 75 02/07/17 12:04 75 02/07/17 11:36 97.4 75 18 106/45 (65) 95 02/07/17 11:36 74 02/07/17 11:07 Nasal Cannula 2.00 02/07/17 10:43 116/60 (78) 02/07/17 10:00 74 I/O 02/07/17 02/07/17 02/07/17 02/08/17 02/08/17 02/08/17 07:00 15:00 23:00 07:00 15:00 23:00 Intake Total 120 ml 240 ml 260 ml Output Total 1100 ml 500 ml 600 ml Balance -980 ml -260 ml -340 ml Intake Oral 120 ml 240 ml 260 ml Output Urine Total 1100 ml 500 ml 600 ml Physical Exam GENERAL: This is a well-nourished, well-developed patient, in no apparent distress. CARDIOVASCULAR: Regular rate and rhythm without murmurs, gallops, or rubs. RESPIRATORY: Clear to auscultation. Breath sounds equal bilaterally. No wheezes , rales, or rhonchi. GASTROINTESTINAL: Abdomen soft, non-tender, nondistended. Normal active bowel sounds MUSCULOSKELETAL: Extremities without clubbing, cyanosis, or edema. NEURO: Alert & Oriented x4 to person, place, time, situation. Moves all ext x4 Laboratory Laboratory Tests Test 02/08/17 07:47 White Blood Count 10.4 TH/MM3 Red Blood Count 3.66 MIL/MM3 Hemoglobin 11.4 GM/DL Hematocrit 34.8 % Mean Corpuscular Volume 95.1 FL Mean Corpuscular Hemoglobin 31.0 PG Mean Corpuscular Hemoglobin Concent 32.6 % Red Cell Distribution Width 14.2 % Platelet Count 231 TH/MM3 Mean Platelet Volume 7.6 FL Neutrophils (%) (Auto) 73.5 % Lymphocytes (%) (Auto) 5.9 % Monocytes (%) (Auto) 10.4 % Eosinophils (%) (Auto) 9.9 % Basophils (%) (Auto) 0.3 % Neutrophils # (Auto) 7.7 TH/MM3 Lymphocytes # (Auto) 0.6 TH/MM3 Monocytes # (Auto) 1.1 TH/MM3 Eosinophils # (Auto) 1.0 TH/MM3 Basophils # (Auto) 0.0 TH/MM3 CBC Comment DIFF FINAL Differential Comment Blood Urea Nitrogen 21 MG/DL Creatinine 0.87 MG/DL Random Glucose 107 MG/DL Total Protein 5.1 GM/DL Albumin 1.9 GM/DL Calcium Level 8.2 MG/DL Phosphorus Level 2.3 MG/DL Magnesium Level 2.2 MG/DL Alkaline Phosphatase 51 U/L Aspartate Amino Transf (AST/SGOT) 33 U/L Alanine Aminotransferase (ALT/SGPT) 42 U/L Total Bilirubin 0.8 MG/DL Sodium Level 136 MEQ/L Potassium Level 4.0 MEQ/L Chloride Level 100 MEQ/L Carbon Dioxide Level 30.4 MEQ/L Anion Gap 6 MEQ/L Estimat Glomerular Filtration Rate 83 ML/MIN Imaging Last Impressions Chest X-Ray 02/05/17 0307 Signed Impressions: Service Date/Time: January 09:47 - CONCLUSION: 1. Cardiomegaly with interstitial edema. 2. Bibasilar densities. 3. Hiatal hernia. Imer Luke MD Assessment and Plan Problem List: (1) Afib ICD Codes: I48.91 - Unspecified atrial fibrillation Status: Chronic Plan: Currently in NSR; dilt ggt stopped; on digoxin and BB; not currently a candidate for anticoagulation due to high/proven fall risk but this can be re- evaluated by pt's primary Concrete Analyst Dr. Thompson. Assessment and Plan Ok to d/c back to rehab from cardiac standpoint; will be available as needed, please call with questions. Problem Qualifiers (1) Afib: Qualified Codes: I48.0 - Paroxysmal atrial fibrillation Baljit Berry MD Feb 08, 2017 09:40
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
[2017-02-08 11:51] LABS: HEMOGLOBIN A1a 1.2 %; HEMOGLOBIN A1b 1.6 %; HEMOGLOBIN Ao 85.1 %; HEMOGLOBIN P3 5.3 %
[2017-02-08] MEDS: ATORVASTATIN 40 MG TAB PO SCH (20:10)
[2017-02-08] MEDS: TAMSULOSIN HCL 0.4 MG CAP PO SCH (20:10)
[2017-02-09] VITALS (11 sets, daily range): BP systolic 141–147; BP diastolic 63–64; PULSE 84–95; RESP 18–19; TEMP 98.2–99.2; O2SAT 89–95
[2017-02-09] MEDS: RESP: ALBUTEROL 2.5 MG/IPRATROPIUM 0.5 MG NEB (SCH) NEB (04:01)
[2017-02-09] MEDS: CEFEPIME INJ 2,000 MG in SODIUM CHLORIDE 0.9% INJ 100 ML IV SCH (04:14)
[2017-02-09] MEDS ORDERED: DEXTROSE 50% IN WATER 50 ML SYRINGE ONE (08:06)
[2017-02-09] MEDS ORDERED: DEXTROSE 50% IN WATER 50 ML VIAL(D50) IV PUSH PRN (08:15)
[2017-02-09] MEDS: guaiFENesin E.R. 600 MG TAB PO SCH (09:00)
[2017-02-09] MEDS: METOLAZONE 5 MG TAB PO SCH ×2 (09:00→11:38)
[2017-02-09] MEDS: SODIUM CHLORIDE 0.9% FLUSH 10 ML FLUSH IV FLUSH SCH (09:00)
[2017-02-09] MEDS: BUDESONIDE-FORMOTEROL 80/4.5 MCG INHALER INH SCH (09:44)
[2017-02-09] MEDS: ENOXAPARIN SODIUM 40 MG/0.4 ML SYRINGE SQ SCH (09:44)
[2017-02-09] MEDS: MULTIVITAMIN TAB PO SCH (09:45)
[2017-02-09] MEDS: SPIRONOLACTONE 25 MG TAB PO SCH (09:45)
[2017-02-09] MEDS: DIGOXIN 0.125 MG TAB PO SCH (09:46)
[2017-02-09] MEDS: PANTOPRAZOLE SOD 40 MG DELAYED RELEASE TAB PO SCH (09:46)
[2017-02-09] MEDS: ASPIRIN 81 MG CHEW TAB PO SCH (09:46)
[2017-02-09] MEDS: FAMOTIDINE 20 MG TAB PO SCH (09:48)
[2017-02-09] MEDS: ATENOLOL 25 MG TAB PO SCH (09:50)
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
[2017-02-09] MEDS ORDERED: guaiFENesin ER PO (10:38)
[2017-02-09] MEDS ORDERED: HYDR-3583 PO (10:38)
[2017-02-09] MEDS ORDERED: DIPH12.5S PO (10:38)
[2017-02-09] MEDS ORDERED: TEMA15CA PO (10:38)
[2017-02-09] MEDS ORDERED: PANT40TA3 PO (10:38)
[2017-02-09] MEDS ORDERED: SPIR25 PO (10:38)
[2017-02-09] MEDS ORDERED: METO5TAB3 PO (10:38)
[2017-02-09] MEDS ORDERED: ALPR0.25 PO (10:38)
[2017-02-09] MEDS ORDERED: FAMO20TA2 PO (10:38)
[2017-02-09] MEDS ORDERED: DIGO0.12 PO (10:38)
[2017-02-09] MEDS ORDERED: LIDO1SOL8 PO (10:38)
[2017-02-09] MEDS ORDERED: MAG-LIQ PO (10:38)
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
[2017-02-20] MEDS ORDERED: WHEEMIS3 (12:26)
[2017-02-20] MEDS ORDERED: GETGO ROLLING W1 MI1 (12:26)
[2017-02-20] MEDS ORDERED: COMMODE 3-IN-11 MIS (12:26)
[2017-02-26] MEDS ORDERED: SPIR25 PO (08:23)
[2017-02-26] MEDS ORDERED: DIGO0.12 PO (08:23)
[2017-02-26] MEDS ORDERED: ROPI.25 PO (08:23)
[2017-02-26] MEDS ORDERED: ATEN25TA PO (08:23)
[2017-02-26] MEDS ORDERED: THERTAB15 PO (08:23)
[2017-02-26] MEDS ORDERED: ASPI81CH25 PO (08:23)
[2017-02-26] MEDS ORDERED: HYDR-3516 PO (08:23)
[2017-02-26] MEDS ORDERED: FAMO1TAB73 PO (08:23)
[2017-02-26] MEDS ORDERED: SYMB80AE INH (08:23)
[2017-02-26] MEDS ORDERED: ATOR40TA16 PO (08:23)
[2017-02-26] MEDS ORDERED: SENN1TAB PO (08:23)
[2017-02-26] MEDS ORDERED: VENTAER INH (08:23)
[2017-02-26] MEDS ORDERED: TAMS5CAP PO (08:23)
== END 2017-02-09 12:07 | DRG 291 ==
LOC: HCIS 02:47
PROVIDERS: ADMIT Hospitalist; ATTEND Hospitalist
DX: I50.9 Heart failure, unspecified (principal); J96.01 Acute respiratory failure with hypoxia; K56.7 Ileus, unspecified; N39.0 Urinary tract infection, site not specified; J98.11 Atelectasis; Z99.81 Dependence on supplemental oxygen; J44.9 Chronic obstructive pulmonary disease, unspecified; K44.9 Diaphragmatic hernia without obstruction or gangrene; I48.0 Paroxysmal atrial fibrillation; I25.10 Atherosclerotic heart disease of native coronary artery without angina pectoris; Z79.01 Long term (current) use of anticoagulants; Z88.2 Allergy status to sulfonamides; Z87.891 Personal history of nicotine dependence; Z95.5 Presence of coronary angioplasty implant and graft; Z96.641 Presence of right artificial hip joint
CPT/HCPCS: 71020; 76937; 80053; 83036; 83735; 83880; 84100; 84439; 84443; 85025; 85379; 93005; 93306; 94150; 94640; 94664; J0692; J1160; J1650